=== PATIENT | male | born 1950 | race African-American/Black ===

== ENCOUNTER 2018-08-05 13:27 | Observation (INO) | payer MEDICARE ==
[2018-08-05] MEDS ORDERED: Ondansetron ODT 8 MG TAB PO PRN (13:39)
[2018-08-05] MEDS ORDERED: Ondansetron PF 4 MG/2 ML Vial IVP PRN (13:39)
[2018-08-05] MEDS ORDERED: Acetaminophen 325 MG TAB PO PRN (13:39)
[2018-08-05] MEDS ORDERED: Aspirin 325 MG TAB PO SCH (13:45)
[2018-08-05] MEDS ORDERED: Nitroglycerin 2% Ointment 1 INCH/1 GM Packet TOP SCH (13:45)
[2018-08-05 13:48] VITALS: BMI 25.9
--- NOTE | 2018-08-05 13:53 | PDOC.FPRHP ---
- History of Present Illness Chief Complaint: chest pain, SOB History of Present Illness: 68 yo M with HTN, HLD, CAD transfer for ACS r/o. Chest pain/pressure started 2 days ago, worse w/ exertion, better with rest and nitro paste. No nausea or diaphoriesis. Had this same pain 2 years ago in which he underwent NST with subsequent cardiac cath showing mild CAD of the LAD. Pt also endorses orthopnea but denies hx HF or lower extremity swelling. 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 Unable to remember what all he takes. - Allergies/Adverse Reactions Allergies Allergy/AdvReac Type Severity Reaction Status Date / Time No Known Allergies Allergy Verified 08/05/18 13:59 - Home Medications Medication Instructions Recorded Confirmed Type No Known 08/05/18 08/05/18 History - History PMHx: Hypertension, hyperlipidemia, PUD PSHx: Cardiac cath in 2017 FHx: Multiple family members with unknown heart problems Social: Smokes 1/2 ppd, drinks beer and uses cocaine every few weeks - Review of Systems General: denies: fever/chills, weight/appetite/sleep changes Eyes: denies: eye pain, vision changes ENT: denies: nasal congestion, rhinorrhea Respiratory: reports: shortness of breath. denies: cough, congestion Cardiovascular: reports: chest pain, orthopnea. denies: palpitation, edema Gastrointestinal: denies: nausea, vomiting, diarrhea, GI bleeding Genitourinary: denies: incontinence, dysuria Skin: denies: rashes, lesions Musculoskeletal: denies: pain, tenderness, stiffness, swelling Neurological: denies: numbness, syncope, weakness - Vital signs BP: [197/102] HR: [57] RR: [14] Tmax: [] Pox: [98]% on [RA] Wt: [81kg] - Physical Exam Constitutional: NAD, awake, alert and oriented, well developed HEENT: normocephalic and atraumatic, PERRLA, no scleral icterus Neck: supple, FROM, trachea midline Chest: no-tender to palpation Heart: RRR, normal S1/S2, no murmurs/rubs/gallops Lungs: CTAB, no respiratory distress, good air movement, no wheezing Abdomen: soft, non-tender, bowel sounds present Musculoskeletal: normal structure, normal tone Neurological: no focal deficit, CN II-XII intact Skin: no rash/lesions, good turgor, capillary refill <2 seconds Heme/Lymphatic: no unusual bruising or bleeding, no purpura Psychiatric: normal mood and affect, good judgment and insight FMR H&P: Results - Labs Result Diagrams: 08/05/18 16:49 - EKG Interpretation EKG: sinus bradycardia T wave inversions bifasicular block - Radiology Interpretation Chest x-ray Status: image reviewed by me, report reviewed by me Additional comment: no acute cardiopulmonary process FMR H&P: A/P - Problem List (1) ACS (acute coronary syndrome) Current Visit: Yes Status: Acute Code(s): I24.9 - ACUTE ISCHEMIC HEART DISEASE, UNSPECIFIED (2) CAD (coronary artery disease) Current Visit: Yes Status: Acute Code(s): I25.10 - ATHSCL HEART DISEASE OF [place] CORONARY ARTERY W/O ANG PCTRS (3) HLD (hyperlipidemia) Current Visit: Yes Status: Acute Code(s): E78.5 - HYPERLIPIDEMIA, UNSPECIFIED (4) Hypertension Current Visit: No Status: Acute Code(s): I10 - ESSENTIAL (PRIMARY) HYPERTENSION - Plan 68 yo M with CAD, HTN, HLD here for chest pain, ACS rule out Typical chest pain -Known CAD with cardiac cath in 2017 showing 20-30% stenosis of LAD -EKG with new T wave inversions in anterolateral lead V4-V5, no ST segment elevations -Pt asx currently, continue morphine and nitro patch for chest pain -continue ASA, statin, hold BB for stress -.02-> .016, continue to trend -A1c, FLP to risk stratify -Discussed with Dr. Cardenas, if troponins rise, consult -TTE to assess for heart failure -If not, plan for NST tomorrow to r/o ACS Hypokalemia -2.9, s/p 40mEq -recheck Mg & potassium -replace as needed Hyperbilirubinemia -1.5, will order direct THERESE vs. CKD -Creat 1.16, no good baseline -gentle fluids -rpt in AM HTN -pending med rec -hydralazine PRN HLD -will initiate statin Diet: HH/NPO @ midnight Dispo: <2 midnights Code: Full PCP: CC Will discuss w/ Dr. Barreto FMR H&P: Upper Level - Pertinent history 68 y/o M w/ PMHx of HTN and HLD presents as a direct admit from [facility] for further eval of intermittent left sided chest pain worse with exertion and associated w/ SOB. Reports improved w/ rest and nitro paste given in the ER. Denies any current chest pain. Hx of tobacco use. Per review of records had heart cath in 2016 showing minimal CAD. Pt reports sxs are similar to when he had his previous heart cath. Does not currently see a PCP and not currently taking any meds as he ran out and does not know which ones he is supposed to be on. - Pertinent findings Vitals per [facility] note Trop - 0.02 CK - 289 K+ - 2.6 Bili - 1.5 EKG - T-wave inversions noted CXR - NAD EKG - RBBB in anterior and inferior leads. New compared to Dec 2016 EKG per ER report. GEN: NAD, laying in bed CARD: RRR, no murmur PULM: CTA-b/l EXT: Trace LE edema R>L - Plan Date/Time: 08/05/18 1673 IJordan. Shane Linda MD, have evaluated this patient and agree with findings/plan as outlined by internal specialist resident. Pertinent changes/additions are listed here. 68 y/o M w/: 1) Typical Chest Pain (HEART 6) - Pt w/ new t-wave inversions noted as compared to 12/2016 admission - Initial troponin negative and not having active chest pain. Will put in for stress test for the AM - No recent ECHO, will obtain as well as he did have some decreased ventricular fxn per his cath 2 years ago - Cont. to janice Trop w/ CK-MB and repeat EKG's q 3 hrs. Will consult cardiology if pt's develops evidence of acute ischemia on EKG or trops become positive - Cont. w/ ASA. Will start on statin as he has a hx of HLD and is not currently taking - Will check FLP, A1c, and TSH for risk stratification 2) Other Chronic Medical Problems per [facility] note Addendum - Attending - Attending Attestation Date/Time: 08/05/18 9008 I personally evaluated the patient and discussed the management with Dr. Kim. I agree with the History, Examination, Assessment and Plan documented above with any addition or exceptions noted below. The patient was transferred from [facility] for chest pain and abnormal ekg. EKG with t-wave inversions and RBBB. Troponins are negative. Chest pain is now improved. Pt does not have a PCP and has not been taking antihypertensives for at least a month. He was positive for cocaine. Will add amlodipine for blood pressure control. Hydralazine prn. Trend cardiac enzymes. The team was able to speak with cardiology who recommended stress test.
[2018-08-05] MEDS ORDERED: hydrALAZINE 20 MG/ML VIAL SLOW IVP PRN (14:36)
[2018-08-05 14:44] LABS: Troponin I 0.016 ng/mL (< 0.028)
[2018-08-05] MEDS ORDERED: Lactated Ringer's 1,000 ML IV SCH ×2 (16:00→18:00)
[2018-08-05 17:06] LABS: Hemoglobin A1c 5.8 % (4.0-6.0)
[2018-08-05 17:13] LABS: Potassium 3.6 mmol/L (3.5-5.1)
[2018-08-05 17:21] LABS: Cardiac Risk 3.6 (Less than 4.5); Magnesium 1.9 mg/dL (1.6-2.6)
[2018-08-05 17:24] LABS: Troponin I 0.013 ng/mL (< 0.028)
[2018-08-05 17:25] LABS: CKMB 2.9 ng/mL (0-6.6)
[2018-08-05] MEDS: Atorvastatin Calcium 40 MG TAB PO SCH (20:39)
[2018-08-05 21:03] LABS: Troponin I Less than 0.010 ng/mL (< 0.028)
[2018-08-05] MEDS ORDERED: Amlodipine 5 MG TAB PO SCH (21:15)
--- NOTE | 2018-08-06 06:23 | PDOC.FM ---
- Subjective Subjective: Per nursing patient had 8 beats of v-tach overnight but was asymptomatic. Patient reports that he feels alright this AM. Endorses some right low back pain and mild persistent left-sided chest pain. Also reports that the bottoms of his feet feel hot with associated pain & swelling in his toes that is worse in his right foot. Denies any SOB, N/V, headache or vision changes. - Objective MAR Reviewed: Yes Vital Signs & Weight: Vital Signs (12 hours) Temp Pulse Resp BP BP BP Pulse Ox 08/06/18 03:28 97.8 F 69 13 156/94 H 94 L 08/05/18 23:58 97.8 F 69 16 123/78 95 08/05/18 22:42 75 167/99 H 08/05/18 19:54 97.2 F L 76 16 172/96 H 94 L Weight Weight 82.962 kg I&O: 08/04/18 08/05/18 08/06/18 06:59 06:59 06:59 Intake Total 360 Balance 360 Result Diagrams: 08/06/18 06:31 Phys Exam - Physical Examination Constitutional: NAD HEENT: moist MMs, sclera anicteric Neck: supple, full ROM Respiratory: no wheezing, no rales, no rhonchi, clear to auscultation bilateral Cardiovascular: RRR, no significant murmur Musculoskeletal: edema present (edema in toes of both feet with TTP in right great toe especially; warmth & mild erythema noted as well) Neurological: non-focal, moves all 4 limbs Psychiatric: normal affect, A&O x 3 Skin: no rash, normal turgor Dx/Plan (1) ACS (acute coronary syndrome) Code(s): I24.9 - ACUTE ISCHEMIC HEART DISEASE, UNSPECIFIED Status: Acute (2) CAD (coronary artery disease) Code(s): I25.10 - ATHSCL HEART DISEASE OF [place] CORONARY ARTERY W/O ANG PCTRS Status: Acute (3) HLD (hyperlipidemia) Code(s): E78.5 - HYPERLIPIDEMIA, UNSPECIFIED Status: Acute (4) Elevated troponin Code(s): R79.89 - OTHER SPECIFIED ABNORMAL FINDINGS OF BLOOD CHEMISTRY Status : Acute (5) Hypertension Code(s): I10 - ESSENTIAL (PRIMARY) HYPERTENSION Status: Acute (6) Polysubstance abuse Code(s): F19.10 - OTHER PSYCHOACTIVE SUBSTANCE ABUSE, UNCOMPLICATED Status: Acute - Plan Plan: 68 yo M with CAD, HTN, & HLD here for typical chest pain. Typical chest pain -Known CAD with cardiac cath in 2017 showing 20-30% stenosis of LAD -EKG with new T wave inversions in anterolateral lead V4-V5 but no ST segment elevations on admission -Pt remains asx but will continue tylenol PRN for pain -trops from .02--> .016--> <0.010 -A1c significant for pre-DM and FLP showed LDL of 111. -Will continue ASA & statin & add an antihypertensive but will avoid BBs for stress this AM -TTE to assess for heart failure -NST today to r/o ACS nonsustained V-tach - Per nursing patient had ~8 beats of non-sustained V-tach overnight but had similar runs during last hospitalization & EP decided no interventions were necessary. Will continue to monitor closely on telemetry & proceed with stress testing as planned. Pre-DM - Aware, will have patient follow-up as an outpatient for close monitoring and resume HH, diabetic diet after stress test Toe pain & swelling - Patient denies any prior h/o gout but will check a uric acid level to rule out a possible gout flare. Hypokalemia, resolved -2.9 at outside facility but up to 3.6 s/p 40mEq. -Will continue to monitor & replace as needed. Hyperbilirubinemia -Tbili 1.5 on admission with a slightly elevated direct of 0.5 THERESE vs. CKD - Creat 1.16 on admission with no good baseline for comparison - Repeat pending for this AM HTN -Will start amlodipine & add other agents PRN as patient cannot remember what meds he is supposed to be on -hydralazine PRN for SBP >180 HLD -will continue statin Diet: NPO for stress this AM Dispo: <2 midnights Code: Full PCP: CC Discussed case w/ Dr. Barreto. Addendum - Attending - Attending Attestation Date/Time: 08/06/18 4130 I personally evaluated the patient and discussed the management with Dr. Barahona. I agree with the History, Examination, Assessment and Plan documented above with any addition or exceptions noted below. The patient states his chest pain is better and his headache is improved. Added amlodipine for bp control. Stress test today. He had several beats of vtach overnight and looking at hospitalization about a year ago, this occured then as well. Will monitor.
[2018-08-06 07:02] LABS: Anion Gap 9 mmol/L (10-20); BUN (Urea Nitrogen) 15 mg/dL (8.4-25.7); Calc. Creatinine Clearance 71 mL/min (70-130); Calcium 9.1 mg/dL (7.8-10.44); Carbon Dioxide 28 mmol/L (23-31); Chloride 102 mmol/L (98-107); Estimated GFR-MDRD 78; Glucose 119 mg/dL (80-115); Potassium 3.4 mmol/L (3.5-5.1); Sodium 136 mmol/L (136-145)
[2018-08-06] MEDS ORDERED: Acetaminophen 500 MG TAB PO PRN (07:54)
[2018-08-06] MEDS ORDERED: Potassium Chloride 20 MEQ TAB PO SCH (08:00)
[2018-08-06 08:16] LABS: Magnesium 1.9 mg/dL (1.6-2.6)
[2018-08-06] MEDS: Amlodipine 5 MG TAB PO SCH (08:18)
[2018-08-06] MEDS: Aspirin 81 mg Enteric Coated Tablet PO SCH (08:18)
[2018-08-06] MEDS ORDERED: Hydrochlorothiazide 25 MG TAB PO SCH (09:45)
[2018-08-06] MEDS: Nitroglycerin 0.4 MG TAB (25 Tab Bottle) ONE ×3 (11:15→11:27)
[2018-08-06] MEDS ORDERED: Nitroglycerin 0.4 MG TAB (25 Tab Bottle) SL PRN (11:49)
[2018-08-06] MEDS: Lisinopril 20 MG TAB PO SCH (19:56)
[2018-08-06] MEDS: Atorvastatin Calcium 40 MG TAB PO SCH (19:56)
[2018-08-06] MEDS: Hydrochlorothiazide 25 MG TAB PO SCH (19:56)
--- NOTE | 2018-08-07 00:45 | CON ---
DATE OF CONSULTATION: PRIMARY CARE DOCTOR: Dr. Barth at [facility]. PRIMARY ARMATURE WINDER AUTOMOTIVE: Michele Carrasco MD REFERRING PHYSICIAN: [employer] resident. REASON FOR CARDIOLOGY CONSULT: Chest pain and change in EF. HISTORY OF PRESENT ILLNESS: Mr. La is a 68-year-old male with a significant history of hypertension, noncompliance of medical treatment, smoker and occasional cocaine abuser. The patient was doing quite well; however about 2-3 weeks ago, he started having intermittent sharp and tightness like chest pain to the left upper chest, which is localized and not radiate to anywhere else, which lasted 2 or 3 hours and he also started having choking like shortness of breath and he needed to take a deep breath, but not associated with chest pain. Due to this episode, the patient decided to present to the emergency department for further evaluation and treatment. He was supposed to have a stress test this morning; however, which was, however, which was postponed this morning due to worsening of the EF and also recurrent chest pain and 8 beats of V-tach, which the patient was asymptomatic. This morning, he had sharp pain to the left upper chest for 2-3 hours at the left upper chest, the symptom became worse with palpitation and with movement. He also complained of shortness of breath and tingling in the left arm. He also complained of pain to the left leg with swelling and burning like pain to the right foot with movement, but also he had shooting like pain to the side, even though he is resting. He had been active helping his neighbor for the yard work. Every day he walks a total of 2-3 miles a day. He sometimes has shortness of breath and then he has to stop for few minutes, but he denied any chest pain, heaviness, tightness, dizziness, lightheadedness, nausea, or tingling to the left arm during the exercise. He continues smoking 3-4 cigarettes a day. He has a history of occasional cocaine abuse, last use was 2 weeks ago. He is a non-complaint patient. He does want to see the doctor unless he has some symptoms. He has been at the ER at [facility] for high blood pressure couple of months ago. However, he has not taken any blood pressure medicine or any medicine for more than 1 month. The patient has underwent cardiac catheterization in May 2016, which shows normal coronary arteries in left main, left circumflex, and right coronary arteries. He has a 20% of stenosis in the proximal LAD and 30% stenosis in mid LAD with EF 45% to 50% and mild global hypokinesis. The patient had an echocardiogram done today, which shows EF of inferior hypokinesis suggestive of diastolic dysfunction, moderately dilated left atrium, mildly enlarged right atrium, mild mitral valve regurgitation, mild aortic valve regurgitation, and mild tricuspid regurgitation. PAST MEDICAL HISTORY: Hypertension, ulcer disease with a history of GI bleed and cocaine abuse. PAST SURGICAL HISTORY: Cardiac catheterization in May 2016 with mild CAD, clipping of ulcer in 1997 and left arm fracture in 2015. FAMILY HISTORY: The patient's mother and patient's maternal grandmother had a history of OK before the age of 60. The patient's father has also myocardial infarction at the age of 60. The patient's one of the brother has a history of CVA. He had to stay in the senior care at this moment. SOCIAL HISTORY: He is living with the . He has 4 daughters who are living well. He smokes 3-4 cigarettes per day. He has an ex EtOH abuse, he quit 15 years ago. He used cocaine occasionally, but he does not use any heroin or meth. He has been active. He drinks 1 cup of coffee a day. ALLERGIES: NO KNOWN DRUG ALLERGIES. MEDICATIONS: He is supposed to take medication for hypertension, but he has not taken any for more than 1 month. REVIEW OF SYSTEMS: A 12-point review of systems negative unless otherwise mentioned in the HPI. PHYSICAL EXAMINATION: VITAL SIGNS: Blood pressure 172/90, temperature 98.1, pulse is 63, sinus rhythm, respiratory rate 18, O2 saturation 100% with 2 L nasal cannula. GENERAL: Patient is alert and oriented x4. No acute distress. HEENT: Normocephalic, atraumatic. EYES: Extraocular muscle movement intact. He wears glasses. ENT: Mouth, oral, and nasal mucosa are moist without lesion. NECK: Supple. Normal range of motion. No JVD. RESPIRATORY: Clear to auscultate bilaterally. No wheezing, rales, or rhonchi noted, but diminished at the bases. CARDIOVASCULAR: Regular rate and rhythm. Normal S1, S2. There is no S3 or S4. No significant murmur, hives, thrill noted. EXTREMITIES: 2+ pulses in the bilateral upper extremities and 2+ pulses in the left dorsal pedis and the right femoral arteries, diminished pulses in the right dorsal pedis, bilateral posterior tibial, bilateral popliteal and left femoral. Carotid pulses are present without bruit or thrill. No edema in the lower extremities. ABDOMEN: Soft, nontender. No mass to palpitate. Bowel sounds are present. SKIN: Warm and dry. No lesion, rash, or erythema noted. MUSCULOSKELETAL: The patient able to move all extremities without any difficulty. Patient complaints about the pain to the right lower extremities with walking. NEUROLOGIC: The patient is alert and oriented x4. Nonfocal. PSYCHIATRIC: The patient's mood is appropriate. IMAGIN. A 12 lead EKG on August 06 around 11 shows sinus rhythm with right bundle branch block with no ST-segment change and the T-wave inversion in V1 and V3. 2. Chest x-ray shows no evidence for acute cardiopulmonary process. LABORATORY DATA: WBC 5.3, hemoglobin 15.1, hematocrit 47.3, platelet 157, sodium 136, potassium 3.4, which was 2.6 yesterday, BUN 15, creatinine 1.13, glucose 119. Hemoglobin A1c 5.8, uric acid 8, calcium 9.1, magnesium 1.9, AST 23, ALT 15. Troponin is negative. BNP 59.2, cholesterol 167, triglycerides 45, HDL 47, LDL 111. TSH 0.1552. Free T4 is 1.09. ASSESSMENT/PLAN: 1. Chest pain, his symptoms what he describes is possible musculoskeletal etiologies, also patient's cardiac catheterization in May 2016 shows a mild coronary artery disease. However, patient has blood pressure, history of hypertension, tobacco smoking, and non-complaince with medication, medical treatment and occasional cocaine abuse. At this moment, we would like to continue to monitor the patient's symptom, I would like to discuss with Dr. Cardenas for further treatment and plan for this patient. 2. Hypertension. His blood pressure continues to be elevated. He is on amlodipine 5 mg once daily and hydrochlorothiazide 12.5 mg twice daily, it is going to be p.o. at night; lisinopril 20 mg twice a day is going to be started from tonight. We would like to continue to monitor his blood pressure. 3. Status post 8 beats of ventricular tachycardia. He had similar symptom in May 2016 before the patient underwent cardiac catheterization. Dr. Leal consulted this patient for the diagnosis. Dr. Leal recommended the patient to be on the beta derrick at that time. At this moment, the patient is on aspirin 81 mg once a day; however beta derrick is on hold at this moment due to bradycardia. We will have to continue to monitor on the telemetry. 4. Elevated uric acid. The patient's complaint of the pain to right lower extremities, especially around his foot side with swelling. It may be beneficial for him to start taking allopurinol or some gout medication. 5. Hyperlipidemia. He is on atorvastatin 40 mg once daily at this moment. We would like to continue to monitor. Thank you very much for allowing the Cardiology Service to participate in the care of this patient. We will follow along the patient's care team and make further recommendations as appropriate from tomorrow, Dr. Carrasco is going to follow up with this patient. Job ID: [id number]
--- NOTE | 2018-08-07 00:57 | CON ---
DATE OF CONSULTATION: 08/06/2018 INDICATION FOR CONSULTATION: A 68-year-old patient with a history of [id number] coronary artery disease, who presented with chest pain. He has been seen in the past, underwent cardiac catheterization previously by Dr. Carrasco in May of 2016, at which time, the left anterior descending artery was mildly calcified with 20% proximal lesion, 30% mid lesion. The circumflex was normal. The right coronary was normal and the left main was also normal, ejection fraction was 45% to 50%. He presented again to the hospital complaining of chest pain. He was scheduled to undergo stress testing, but then the nurse deforming the patient had chest pain and diaphoresis. It was opted to discontinue the order for the stress test and most likely will need to proceed with cardiac catheterization again since he had what he described originally as typical chest pain, however, on further evaluation of the patient, he describes it more as being a sharp pain. His cardiac enzymes have remained negative. His EKG shows a right bundle-branch block. He did have some T-wave inversions which have now become upright. He did have some possible ischemic changes on his EKG. He has had some discomfort on and off for the last 2 years since his last cardiac catheterization. This is somewhat atypical, but given his history and continued use of tobacco as well as hypertension and also occasional cocaine use, it maybe best to repeat the cardiac catheterization; I will leave it to the discretion of Dr. Carrasco when he sees the patient tomorrow. He may still undergo a stress test, but certainly the patient does appear to be somewhat at risk for having progression of his coronary artery disease despite having not any significant coronary artery disease by cardiac catheterization just approximately 2 years ago. He also had a 4-beat run of nonsustained ventricular tachycardia making it somewhat more suspicious he may have underlying coronary artery disease that has progressed. PAST MEDICAL HISTORY: Please refer the notes dictated by the nurse practitioner. SOCIAL HISTORY: Please refer the notes dictated by the nurse practitioner. FAMILY HISTORY: Please refer the notes dictated by the nurse practitioner. REVIEW OF SYSTEMS: Please refer the notes dictated by the nurse practitioner. MEDICATIONS: Please refer the notes dictated by the nurse practitioner. ALLERGIES: PLEASE REFER THE NOTES DICTATED BY THE NURSE PRACTITIONER. PHYSICAL EXAMINATION: GENERAL: Reveals a well-developed, well-nourished gentleman, who is in no acute distress at this time. He is alert. He is oriented. VITAL SIGNS: Stable. Blood pressure is somewhat elevated at 162/98. He is afebrile. Heart rate 63, respiratory rate is 18. HEENT: Shows head to be normocephalic and atraumatic. Carotid pulses present. There were no bruits. CHEST: Actually clear to auscultation. I did not hear any rales, rhonchi, or wheezing. CARDIOVASCULAR: Reveals a regular rate and rhythm. There is no significant S3 or S4 noted. There were no significant murmurs, heaves, thrills, bruits noted. ABDOMEN: Soft and nontender. Positive bowel sounds are present. EXTREMITIES: Show no clubbing, cyanosis, or edema. Right pedal pulses are slightly decreased compared to the left. Also, the right femoral artery pulse is slightly decreased compared to the left. He has complained of hip pain in the past, but does not appear to be significant peripheral vascular disease at this time. NEUROLOGICAL: He appears to be intact. SKIN: Warm and dry. LABORATORY DATA: Please refer to the notes already dictated. His troponin I has remained negative. Potassium is 3.4, creatinine is 1.13, blood sugar is 119. His hemoglobin is 15.1 with a WBC of 5.3, and platelet count is also normal at 157,000. IMPRESSION: 1. Somewhat atypical chest pain in a patient with continued risk factors for coronary artery disease with chest pain with associated diaphoresis and EKG changes with a right bundle-branch block and T-wave inversions. We will continue to monitor the patient tonight and we will decide whether or not the patient will undergo stress testing versus cardiac catheterization tomorrow. 2. History of continued tobacco abuse. He has been advised to stop smoking. 3. History of hypertension. We will need to readjust his medications. I am not sure he has been taking his medications at home. At this time, he has been placed on hydrochlorothiazide, lisinopril. He is on nitroglycerin, hydralazine as needed, and amlodipine. He may need to be placed on long-acting nitroglycerin. He is not on a beta derrick, however, he does continue to use cocaine at times. However, there are recent studies which showed that there may not be any significant contraindications to using beta blockers after using cocaine for fear of vasospasm, so he may be a candidate for beta blockers. I believe this up to the discretion of Dr. Carrasco when he reviews these findings and with the patient tomorrow. Job ID: [id number]
--- NOTE | 2018-08-07 05:40 | PDOC.FM ---
- Subjective Subjective: Pt states he did well overnight. He denies chest pain, sob, dizziness, or nausea /vomiting. - Objective MAR Reviewed: Yes Vital Signs & Weight: Vital Signs (12 hours) Temp Pulse Resp BP BP Pulse Ox 08/07/18 04:35 98.0 F 58 L 16 164/88 H 95 08/06/18 23:35 68 18 158/94 H 94 L 08/06/18 19:56 162/98 H 08/06/18 19:25 98.3 F 64 18 162/98 H 99 Weight Weight 82.962 kg I&O: 08/05/18 08/06/18 08/07/18 06:59 06:59 06:59 Intake Total 720 240 Output Total 550 Balance 170 240 Result Diagrams: 08/07/18 06:23 Phys Exam - Physical Examination Constitutional: NAD HEENT: moist MMs Neck: no JVD, full ROM Respiratory: no wheezing, clear to auscultation bilateral Cardiovascular: RRR, no significant murmur Gastrointestinal: soft, non-tender, no distention, positive bowel sounds Musculoskeletal: no edema, pulses present Neurological: moves all 4 limbs Psychiatric: A&O x 3 Skin: cap refill <2 seconds Dx/Plan (1) ACS (acute coronary syndrome) Code(s): I24.9 - ACUTE ISCHEMIC HEART DISEASE, UNSPECIFIED Status: Acute (2) CAD (coronary artery disease) Code(s): I25.10 - ATHSCL HEART DISEASE OF [place] CORONARY ARTERY W/O ANG PCTRS Status: Acute (3) HLD (hyperlipidemia) Code(s): E78.5 - HYPERLIPIDEMIA, UNSPECIFIED Status: Acute (4) Elevated troponin Code(s): R79.89 - OTHER SPECIFIED ABNORMAL FINDINGS OF BLOOD CHEMISTRY Status : Acute (5) Hypertension Code(s): I10 - ESSENTIAL (PRIMARY) HYPERTENSION Status: Acute (6) Polysubstance abuse Code(s): F19.10 - OTHER PSYCHOACTIVE SUBSTANCE ABUSE, UNCOMPLICATED Status: Acute - Plan Plan: This is a 68 male with a pmh of CAD, HTN, HLD Typical chest pain -Cardiology consulted, plan for heart cath or stress test today -Nitro PRN for pain control -Pre-DM and mildly elevated LDL of 111 -TTE yesterday shows EF 55-60 with findings suggestive of diastolic HF Nonsustained V-tach during this hospitalization -Continue monitoring, no intervention at this time Pre-DM -A1c 5.8, likely will not be significant in a 68 yo Cocaine abuse -Avoid beta blockers at this time, defer to cardiology on outpt BB. Hypokalemia -IV and PO replacement, BMP at 1600 Hyberbiliruninemia THERESE vs. CKD -Will monitor how kidneys respond for final diagnosis HTN -Pt on amlodipine, HCTZ, and lisinopril -PRN hydralazine for SBP >180 HLD -Continue statin Addendum - Attending - Attending Attestation Date/Time: 08/07/18 3655 I personally evaluated the patient and discussed the management with Dr. Stuart. I agree with the History, Examination, Assessment and Plan documented above with any addition or exceptions noted below. Patient here for typical chest pain in the setting of known CAD and drug abuse. He is going for heart cath with his deck specialist this morning. Further mgmt per those results and cardiology recs.
[2018-08-07 07:03] LABS: Anion Gap 13 mmol/L (10-20); BUN (Urea Nitrogen) 14 mg/dL (8.4-25.7); Calc. Creatinine Clearance 78 mL/min (70-130); Carbon Dioxide 27 mmol/L (23-31); Chloride 102 mmol/L (98-107); Estimated GFR-MDRD 87; Glucose 98 mg/dL (80-115); Sodium 139 mmol/L (136-145)
[2018-08-07] MEDS ORDERED: Iopamidol 370 76% 100 ML VIAL ONE (09:29)
[2018-08-07] MEDS ORDERED: Iopamidol 370 76% 50 ML VIAL FS ONE (09:29)
[2018-08-07] MEDS ORDERED: Heparin 10,000 UNITS/1 ML VIAL ONE (09:44)
[2018-08-07] MEDS ORDERED: Potassium Chloride 20 MEQ/100 ML PREMIX BAG IVPB SCH (10:00)
[2018-08-07] MEDS ORDERED: Sodium Chloride 0.9% 1,000 ML IV SCH ×2 (10:00→11:35)
[2018-08-07] MEDS ORDERED: Midazolam HCl 2 mg/2 ml Vial ONE (10:40)
[2018-08-07] MEDS ORDERED: Fentanyl 100 MCG/2 ML VIAL ONE (10:40)
[2018-08-07] MEDS ORDERED: Nitroglycerin 4.9 GM Bottle ONE (11:07)
[2018-08-07] MEDS ORDERED: Protamine Sulfate 50 MG/5 ML VIAL ONE (11:07)
[2018-08-07] MEDS ORDERED: Carvedilol 3.125 MG TAB PO SCH (11:30)
[2018-08-07] MEDS ORDERED: Acetaminophen/Codeine 30-300mg Tablet PO PRN ×2 (11:34)
[2018-08-07] MEDS ORDERED: Sodium Chloride 0.9% 200 ML IV PRN (11:34)
[2018-08-07] MEDS ORDERED: Nitroglycerin 0.4 MG TAB (25 Tab Bottle) SL PRN (11:34)
[2018-08-07 12:17] LABS: Amphetamine Not Detected (NotDetected); Barbiturates Screen Not Detected (NotDetected); Benzodiazepine Screen Not Detected (NotDetected); Cocaine Metabolite Screen Detected (NotDetected); Medtox Control Line Valid? VALID (VALID); Medtox Reader # READER 1; Methadone Not Detected (NotDetected); Methamphetamine Not Detected (NotDetected); Opiate Screen Not Detected (NotDetected); Oxycodone Screen Not Detected (NotDetected); Phencyclidine (PCP) Not Detected (NotDetected); THC/Cannabinoid Screen Not Detected (NotDetected); Tricyclic Screen Not Detected (NotDetected)
[2018-08-07] MEDS: Lisinopril 20 MG TAB PO SCH ×2 (12:19→20:48)
[2018-08-07] MEDS: Amlodipine 5 MG TAB PO SCH (12:19)
[2018-08-07] MEDS: Aspirin 81 mg Enteric Coated Tablet PO SCH (12:20)
[2018-08-07] MEDS ORDERED: Hydrochlorothiazide 25 MG TAB PO SCH (13:45)
[2018-08-07] MEDS: Potassium Chloride 20 MEQ in Premix Bag 1 BAG IVPB SCH ×2 (13:56→20:50)
[2018-08-07] MEDS: Hydrochlorothiazide 25 MG TAB PO SCH (14:19)
[2018-08-07 16:56] LABS: Anion Gap 12 mmol/L (10-20); BUN (Urea Nitrogen) 13 mg/dL (8.4-25.7); Calc. Creatinine Clearance 78 mL/min (70-130); Carbon Dioxide 25 mmol/L (23-31); Chloride 101 mmol/L (98-107); Estimated GFR-MDRD 89; Glucose 105 mg/dL (80-115); Potassium 3.3 mmol/L (3.5-5.1); Sodium 135 mmol/L (136-145)
[2018-08-07] MEDS: Potassium Chloride 20 MEQ TAB PO SCH (16:59)
[2018-08-07] MEDS: Carvedilol 3.125 MG TAB PO SCH (16:59)
[2018-08-07] MEDS: Atorvastatin Calcium 40 MG TAB PO SCH (20:46)
[2018-08-08] MEDS: Potassium Chloride 20 MEQ in Premix Bag 1 BAG IVPB SCH (01:27)
--- NOTE | 2018-08-08 05:58 | PDOC.FM ---
- Subjective Subjective: No chest pain overnight. He denies nausea, vomiting, or SOB. Pt reports he wants to go home. - Objective MAR Reviewed: Yes Vital Signs & Weight: Vital Signs (12 hours) Temp Pulse Resp BP BP Pulse Ox 08/08/18 04:00 98.6 F 61 16 137/82 92 L 08/07/18 23:41 98.0 F 57 L 16 126/82 93 L 08/07/18 20:48 159/93 H 08/07/18 19:14 98.6 F 56 L 16 142/87 H 95 Weight Weight 80.876 kg I&O: 08/06/18 08/07/18 08/08/18 06:59 06:59 06:59 Intake Total 720 240 720 Output Total 550 Balance 170 240 720 Result Diagrams: 08/07/18 16:27 Phys Exam - Physical Examination Constitutional: NAD HEENT: moist MMs Neck: no JVD, full ROM Respiratory: no wheezing, clear to auscultation bilateral Cardiovascular: RRR, no significant murmur Gastrointestinal: soft, non-tender, no distention, positive bowel sounds Musculoskeletal: no edema, pulses present Neurological: moves all 4 limbs Psychiatric: A&O x 3 Skin: cap refill <2 seconds Dx/Plan (1) ACS (acute coronary syndrome) Code(s): I24.9 - ACUTE ISCHEMIC HEART DISEASE, UNSPECIFIED Status: Acute (2) CAD (coronary artery disease) Code(s): I25.10 - ATHSCL HEART DISEASE OF [place] CORONARY ARTERY W/O ANG PCTRS Status: Acute (3) HLD (hyperlipidemia) Code(s): E78.5 - HYPERLIPIDEMIA, UNSPECIFIED Status: Acute (4) Elevated troponin Code(s): R79.89 - OTHER SPECIFIED ABNORMAL FINDINGS OF BLOOD CHEMISTRY Status : Acute (5) Hypertension Code(s): I10 - ESSENTIAL (PRIMARY) HYPERTENSION Status: Acute (6) Polysubstance abuse Code(s): F19.10 - OTHER PSYCHOACTIVE SUBSTANCE ABUSE, UNCOMPLICATED Status: Acute - Plan Plan: This is a 68 male with a pmh of CAD, HTN, HLD Typical chest pain, likely due to ischemia -Cardiology consulted -Nitro PRN for pain control -Pre-DM and mildly elevated LDL of 111 -Heart cath shows LAD 50% occluded -Medical management going forward, no further invasive interventions -TTE yesterday shows EF 55-60 with findings suggestive of diastolic HF -Likely home today with PCP and cards outpt follow up Nonsustained V-tach during this hospitalization -Continue monitoring, no intervention at this time Pre-DM -A1c 5.8, likely will not be significant in a 68 yo Cocaine abuse -Avoid beta blockers at this time, defer to cardiology on outpt BB. Hypokalemia -IV and PO replacement, BMP at 1600 Hyberbiliruninemia THERESE vs. CKD -Will monitor how kidneys respond for final diagnosis HTN -Pt on amlodipine, HCTZ, and lisinopril -PRN hydralazine for SBP >180 HLD -Continue statin
[2018-08-08] MEDS: Amlodipine 5 MG TAB PO SCH (08:15)
[2018-08-08] MEDS: Lisinopril 20 MG TAB PO SCH (08:15)
[2018-08-08] MEDS: Potassium Chloride 20 MEQ TAB PO SCH ×2 (08:16→16:22)
[2018-08-08] MEDS: Aspirin 81 mg Enteric Coated Tablet PO SCH (08:16)
[2018-08-08] MEDS: Carvedilol 3.125 MG TAB PO SCH ×2 (08:16→16:21)
[2018-08-08] MEDS ORDERED: Furosemide 20 MG TAB PO SCH (09:00)
[2018-08-08 09:32] LABS: Anion Gap 12 mmol/L (10-20); BUN (Urea Nitrogen) 12 mg/dL (8.4-25.7); Calc. Creatinine Clearance 75 mL/min (70-130); Calcium 8.9 mg/dL (7.8-10.44); Carbon Dioxide 26 mmol/L (23-31); Chloride 100 mmol/L (98-107); Estimated GFR-MDRD 85; Glucose 94 mg/dL (80-115); Potassium 3.1 mmol/L (3.5-5.1); Sodium 135 mmol/L (136-145)
[2018-08-08 11:21] VITALS: BP 138/83; TEMP 97.9
--- NOTE | 2018-08-08 13:15 | PRG ---
DATE OF SERVICE: 08/08/2018 Mr. La is a 68-year-old man, who was admitted with chest pain. He was seen in consultation by the Cardiology Service and subsequently taken for cardiac catheterization. He was found to have one-vessel coronary artery disease with a 50% stenosis of his distal LAD. He had previously had a heart catheterization over a year ago, which showed a 30% stenosis in this area. Medical therapy has been recommended. We have started him on aspirin, statin, and other medications as per recommendations of Cardiology. His troponins remained less than 0.01. He will be discharged today. Job ID: [id number]
--- NOTE | 2018-08-09 14:15 | DIS ---
DATE OF ADMISSION: 08/05/2018 DATE OF DISCHARGE: 08/08/2018 ADMITTING ATTENDING: Alta Barreto MD. DISCHARGE ATTENDING: Josué Jackson MD RESIDENT: Gavino Stuart DO CONSULTS: Michele Carrasco MD, Cardiology. PROCEDURES: 1. Echocardiogram showing EF of 50 to 55, with lateral inferior hypokinesis, EA flow reversal noted suggestive of diastolic dysfunction, otherwise grossly normal. 2. Heart catheterization showing lesion in the proximal LAD, which represents stenosis for 8 mm, lesion of the mid LAD with 30% stenosis for 4 mm, distal lesion on the LAD 50% stenosis for 3 mm. Lesion on the mid right RCA 20% stenosis for 5 mm. PRIMARY DIAGNOSES: Atypical angina. Hypokalemia, resolved at the time of discharge. Mild hypobilirubinemia. Acute kidney injury on chronic kidney disease, improving at the time of discharge. SECONDARY DIAGNOSES: Hypertension, hyperlipidemia, cocaine abuse. DISCHARGE MEDICATIONS: 1. Amlodipine 5 mg p.o. daily. 2. Atorvastatin 40 mg p.o. at bedtime. 3. Carvedilol 3.125 mg p.o. b.i.d. 4. Furosemide 20 mg p.o. daily. 5. Gabapentin 300 mg p.o. t.i.d. 6. Lisinopril 20 mg p.o. b.i.d. 7. Potassium 20 mEq p.o. b.i.d. with meals. BRIEF HISTORY OF PRESENT ILLNESS/HOSPITAL COURSE: A 68-year-old male with past medical history of as above, presented with chest pain started 2 days ago, worsening with exertion, better with rest and nitroglycerin paste. Denied nausea or diaphoresis. Reports the same pain 2 years ago when he underwent a catheterization showing mild CAD to LAD. The patient was admitted to the hospital and underwent echo and heart catheterization as noted above. It was determined to be treated medically rather than interventionally. The patient was advised to discontinue cocaine abuse as this can worsen his chest pain. At the time of discharge, the patient's vital signs were stable. DISPOSITION: Stable. DISCHARGE INSTRUCTIONS: 1. Location: Home. 2. Diet: Heart healthy. 3. Activities: As tolerated. 4. Follow up with PCP and with Cardiology as instructed. The patient was a [employer]. Job ID: [id number]
== END 2018-08-08 16:25 | disposition home or self-care (01) ==
LOC: 2SW 13:27
PROVIDERS: ADMIT Family Medicine; ATTEND Family Medicine
PROC: 4A023N7 Measurement of Cardiac Sampling and Pressure, Left Heart, Percutaneous Approach (ICD-10-PCS; principal; 2018-08-05)
PROC: B2111ZZ Fluoroscopy of Multiple Coronary Arteries using Low Osmolar Contrast (ICD-10-PCS; 2018-08-05)
DX: I25.119 Atherosclerotic heart disease of native coronary artery with unspecified angina pectoris (principal); I12.9 Hypertensive chronic kidney disease with stage 1 through stage 4 chronic kidney disease, or unspecified chronic kidney disease; E11.22 Type 2 diabetes mellitus with diabetic chronic kidney disease; N18.9 Chronic kidney disease, unspecified; N17.9 Acute kidney failure, unspecified; E78.5 Hyperlipidemia, unspecified; E80.6 Other disorders of bilirubin metabolism; E87.6 Hypokalemia; F17.210 Nicotine dependence, cigarettes, uncomplicated; Z79.899 Other long term (current) drug therapy; Z91.14 Patient's other noncompliance with medication regimen
CPT/HCPCS: 80048 ×4; 80061; 80306; 82248; 82553; 82962; 83036; 83735 ×2; 83880; 84132; 84439; 84443; 84484 ×3; 84550; 85347; 93005 ×2; 93306; 93458; 94760 ×3; 96365; 96366; 96375; C1769; G0378 ×2; 36415; 36416; 93010; 99152; 99153; J0360; J1644; J2250; J2720; J3010; J3480; Q9967

== ENCOUNTER 2019-12-01 20:52 | Inpatient (IN) | payer MEDICARE, OTHER ==
[2019-12-01 21:21] LABS: #Eosinphils 0.2 thou/uL (0.0-0.7); #Lymphocytes 2.4 thou/uL (1.20-3.40); #Monocytes 0.5 thou/uL (0.11-0.59); #Neutrophils 3.8 thou/uL (1.40-6.50); %Basophils 0.3 % (0.0-1.0); %Eosinophils 2.5 % (0.0-10.0); %Lymphocytes 34.8 % (21.0-51.0); %Monocytes 7.6 % (0.0-10.0); %Neutrophils 54.7 % (42.0-75.0); Hemoglobin 14.4 g/dL (14.0-18.0); Mean Corpuscular Hemoglobin 29.2 pg (27.0-31.0); Platelet Count 171 thou/uL (130-400); RBC Distribution Width 13.2 % (11.5-14.5); Red Blood Cell (RBC) Count 4.93 mill/uL (4.70-6.10); White Blood Cell (WBC) Count 6.9 thou/uL (4.8-10.8)
--- NOTE | 2019-12-01 21:22 | RAD ---
PORTABLE CHEST: 12/01/19 PROVIDED CLINICAL HISTORY: Chest pain. FINDINGS: Comparison 04/27/19. Cardiac silhouette appears enlarged, which may be at least partially on the basis of portable techniq ue. Vascular calcifications noted. No focal consolidation, pleural fluid or pneumothorax apparent. IMPRESSION: No evidence for an acute cardiopulmonary process. POS: ANNEMARIE
[2019-12-01 21:47] LABS: ALT (SGPT) 13 U/L (8-55); AST (SGOT) 19 U/L (5-34); Albumin 3.9 g/dL (3.4-4.8); Alkaline Phosphatase 64 U/L (40-110); Anion Gap 15 mmol/L (10-20); BUN (Urea Nitrogen) 10 mg/dL (8.4-25.7); Bilirubin, Total 0.6 mg/dL (0.2-1.2); Calc. Creatinine Clearance 0 mL/min (70-130); Calcium 8.8 mg/dL (7.8-10.44); Carbon Dioxide 25 mmol/L (23-31); Chloride 104 mmol/L (98-107); Estimated GFR-MDRD 80; Globulin 3.1 g/dL (2.4-3.5); Glucose 96 mg/dL (83-110); Potassium 3.1 mmol/L (3.5-5.1); Sodium 141 mmol/L (136-145)
[2019-12-01] MEDS ORDERED: Amiodarone 450 MG, Admixture Fee 1 EACH in Dextrose 5% in Water 250 ML IVPB SCH (23:15)
[2019-12-02 00:59] LABS: Troponin I 0.033 ng/mL (< 0.028)
[2019-12-02 03:48] VITALS: BMI 24.5
[2019-12-02] MEDS ORDERED: Potassium Chloride 20 MEQ TAB PO SCH ×2 (04:15→08:45)
[2019-12-02] MEDS ORDERED: Acetaminophen 500 MG TAB PO PRN (08:27)
[2019-12-02] MEDS ORDERED: Carvedilol 3.125 MG TAB PO SCH ×2 (08:30→17:00)
[2019-12-02] MEDS: Aspirin 81 mg Enteric Coated Tablet PO SCH (09:10)
[2019-12-02] MEDS: Enoxaparin Sodium 40 MG/0.4 ML SYRINGE SC SCH (09:10)
[2019-12-02] MEDS: Lisinopril 20 MG TAB PO SCH ×2 (09:11→20:21)
[2019-12-02] MEDS: Amlodipine 5 MG TAB PO SCH (09:11)
[2019-12-02] MEDS: Furosemide 20 MG TAB PO SCH (09:11)
[2019-12-02] MEDS: Gabapentin 300 MG CAP PO SCH ×3 (09:11→20:21)
[2019-12-02 09:41] LABS: Hemoglobin A1c 5.8 % (4.0-6.0); Prothrombin Time 13.4 sec (12.0-14.7)
[2019-12-02 09:54] LABS: Anion Gap 13 mmol/L (10-20); BUN (Urea Nitrogen) 11 mg/dL (8.4-25.7); Calc. Creatinine Clearance 69 mL/min (70-130); Calcium 8.8 mg/dL (7.8-10.44); Carbon Dioxide 27 mmol/L (23-31); Cardiac Risk 3.4 (Less than 4.5); Chloride 105 mmol/L (98-107); Cholesterol 151 mg/dl (< 200 Desired); Estimated GFR-MDRD 83; Glucose 85 mg/dL (83-110); HDL Cholesterol 44 mg/dL (>60 Neg Risk); LDL Cholesterol, Calculated 96 mg/dL; Magnesium 1.7 mg/dL (1.6-2.6); Potassium 3.1 mmol/L (3.5-5.1); Sodium 142 mmol/L (136-145); Triglycerides 55 mg/dL (Less than 150)
[2019-12-02] MEDS: hydrALAZINE 20 MG/ML VIAL SLOW IVP PRN (10:26)
[2019-12-02 12:14] LABS: Troponin I 0.024 ng/mL (< 0.028)
[2019-12-02 12:20] LABS: Amphetamine Not Detected (NotDetected); Barbiturates Screen Not Detected (NotDetected); Benzodiazepine Screen Not Detected (NotDetected); Cocaine Metabolite Screen Detected (NotDetected); Medtox Control Line Valid? VALID (VALID); Medtox Reader # READER 4; Methadone Not Detected (NotDetected); Methamphetamine Not Detected (NotDetected); Opiate Screen Detected (NotDetected); Oxycodone Screen Not Detected (NotDetected); Phencyclidine (PCP) Not Detected (NotDetected); THC/Cannabinoid Screen Not Detected (NotDetected); Tricyclic Screen Not Detected (NotDetected)
[2019-12-02 13:48] LABS: SARS-CoV-2 MS2 Positive; SARS-CoV-2 N Gene Negative; SARS-CoV-2 S Gene Negative; SARS-CoV-2 by NAA Not Detected (NotDetected); SARS-CoV-2 orf1ab Negative
--- NOTE | 2019-12-02 14:44 | CON ---
DATE OF CONSULTATION: 12/02/2019 REASON FOR CONSULTATION: Sustained VT. PRIMARY NURSING ASSOC: Michele Carrasco MD HISTORY OF PRESENT ILLNESS: Mr. La is a 69-year-old gentleman, who comes to the hospital for chest pain. He started complaining of midsternal chest pain about an hour before arrival to the ER, which was about 8 p.m. yesterday. He received aspirin and nitroglycerin on EMS, and he states by the time he came in, his symptoms almost resolved. He is back to normal. He denies any more chest pain, tightness, pressure. No shortness of breath. During his admission yesterday, he had an episode of 1 minute of wide-complex rhythm, heart rate was in the 170s, but that is resolved since. PAST MEDICAL HISTORY: 1. Jkcd-yj-rcktftrm coronary artery disease on heart catheterization just a little over a year ago with Dr. Carrasco. He had a distal LAD 50% lesion, otherwise just mild disease. 2. Nonischemic cardiomyopathy. His EF was about 45% to 50% at one time. Last echo was done on August of 2018 and he was at 50% to 55%. 3. Hypertension. 4. History of GI bleed secondary to ulcerative disease. 5. Cocaine abuse. He states last time was yesterday. PAST SURGICAL HISTORY: Cardiac catheterization in 2019 showing just [id number] CAD. This is unchanged as compared to a cardiac catheterization in 2017. FAMILY HISTORY: Maternal grandmother, [place] at 60. Father, [place] at 60. Brother had stroke. SOCIAL HISTORY: Smokes about 5 cigarettes a day. No alcohol for 15 years. Cocaine abuse, last used yesterday. ALLERGIES: NO KNOWN DRUG ALLERGIES. OUTPATIENT MEDICATIONS: 1. Lisinopril mg b.i.d. 2. Gabapentin 300 mg t.i.d. 3. Lasix . 4. Carvedilol 3.125 b.i.d. 5. Atorvastatin 40 mg at bedtime. 6. Aspirin 81 a day. 7. Norvasc 5 mg a day. 8. Tylenol p.r.n. 9. Potassium chloride 20 mEq b.i.d. REVIEW OF SYSTEMS: A 12-point review of systems was done and was found to be negative other than stated in the history of present illness. PHYSICAL EXAMINATION: VITAL SIGNS: Temperature 97.5, pulse 66, respiratory rate 14, saturation 96% on 2 L nasal cannula, and blood pressure 155/84. GENERAL: Awake, alert, oriented x3, in no distress. HEENT: Normocephalic, atraumatic. NECK: Supple. LUNGS: Clear. CARDIOVASCULAR: S1 and S2. No S3 or S4. No murmurs. ABDOMEN: Soft. Positive bowel sounds. EXTREMITIES: No edema. SKIN: Warm and dry. LABORATORY DATA: Laboratory work was reviewed. CBC was unremarkable. Coags were normal. Chemistry was unremarkable except for potassium of 3.1. Troponin was 0.03 and 0.02, so pretty much normal. Triglycerides of 55, total cholesterol 151, LDL of 96, and HDL of 44. Urine drug screen was positive for cocaine. COVID PCR was not detected. Chest x-ray was unremarkable. ASSESSMENT AND PLAN: 1. Sustained ventricular tachycardia. Most likely related to cocaine abuse. 2. Chest pain. 3. Substance abuse, positive cocaine on urine. 4. Dzvk-dn-fzrvdpvl coronary artery disease on several repeat catheterizations, unlikely this is an acute coronary syndrome, most likely related to 69-year-old using cocaine. 5. Hypertension. Again, likely secondary to cocaine use. PLAN: 1. We will repeat echocardiogram. 2. Counseled the patient on cessation of use. He is high risk mortality for this. We may need to call Electrophysiology to see if there is anything that needs to be done for his nonsustained VT. 3. We will get an echocardiogram to assess LV function and make sure it has not changed. 4. I do not think he needs a repeat catheterization as most likely his episode of chest pain and VT were all triggered by cocaine use and not any significant coronary artery disease. Thank you for letting us to participate in the care of your patient. Dr. Carrasco, his primary tapper supervisor, will follow in the morning. Job ID: [id number]
[2019-12-02] MEDS: Potassium Chloride 20 MEQ TAB PO SCH (16:39)
--- NOTE | 2019-12-02 19:11 | HP ---
CHIEF COMPLAINT: Chest pain. PRIMARY CARE PHYSICIAN: Ramya Fisher. HISTORY OF PRESENT ILLNESS: The patient is a 69-year-old gentleman, who has significant past medical histories of CAD, hypertension, peptic ulcer disease, dyslipidemia, drug abuse, who presented to the ED with complaining of chest discomfort. The patient reports that his symptoms started yesterday, with sharp shooting pain that radiated to his left arm. The patient reports that his symptom has occurred intermittently for the past month, but progressively worse since yesterday. He also reports that he used cocaine yesterday. Initial workup in the ED showed that he had bradycardia. Potassium of 3.1. Initial troponins were negative. He subsequently went into nonsustained ventricular tachycardia, reported that he had a 22-beat run. He was started on amiodarone drip. He became bradycardic, with a heart rate in the low 40s. For that reason, his amiodarone was discontinued. Repeated troponins went up slightly to 0.03. At the time I evaluated the patient, he denied any chest pain. The patient endorsed associated with short of breath. No fever or chills. No cough. No recent travel history. The patient is an inmate. He used to smoke and used cocaine. PAST MEDICAL HISTORY: 1. CAD. 2. Hypertension. 3. Dyslipidemia. 4. GERD. PAST SURGICAL HISTORY: None. ALLERGIES: NO KNOWN DRUG ALLERGIES. FAMILY HISTORY: The patient reported multiple family members with histories of "heart problem." SOCIAL HISTORY: The patient is an inmate. He used to smoke, and reported using cocaine from time to time. REVIEW OF SYSTEMS: Complete review of systems has been assessed and discussed with the patient. Negative and positive pertinent symptoms noted in the HPI. Otherwise, complete review of systems reviewed and negative. PHYSICAL EXAMINATION: VITAL SIGNS: Temperature is 97.6, heart rate 52, respiratory rate 12, O2 saturation 100% on 2 L, blood pressure is 168/93. GENERAL APPEARANCE: The patient is alert and oriented x3. He is not in acute distress. HEENT: Normocephalic and atraumatic. Mucous membranes are moist. NECK: Supple. No lymphadenopathy. No JVD. CARDIOVASCULAR: Bradycardia. S1 and S2 noted. No murmur. RESPIRATORY: Clear to auscultation bilaterally. No wheezing. ABDOMEN: Soft, nontender, nondistended. Positive bowel sounds. EXTREMITIES: No edema. NEUROLOGIC: Cranial nerves 2 through 12 grossly intact. No focal weakness. PSYCHIATRIC: The patient alert and oriented x3. Normal affect. LABORATORY DATA: CBC; WBC 6.9, hemoglobin 14.4, hematocrit 42.4, platelet 171. Chemistry; sodium 141, potassium 3.1, chloride is 104, carbon dioxide 25, anion gap 15, BUN 10, creatinine is 1.1. AST and ALT within normal limits. Troponin 0.024, 0.033. IMAGING STUDIES: Chest x-ray negative for acute cardiopulmonary process. ASSESSMENT AND PLAN: This is a 69-year-old gentleman, who is an inmate, with significant past medical histories of coronary artery disease. He had a left heart catheterization done in 2019, showed [id number]-[id number] coronary artery disease. He also had hypertension, dyslipidemia, who presented to the ED with complaint of chest pain. Prior to admission, the patient also reported that he used cocaine. 1. Chest pain with mildly elevated troponin, may be related to recent cocaine use. However, he does have elevated risk factor for CAD. The patient will be admitted to tele for observation. We will continue with serial enzyme, repeat echo to assess LV function. Cardiology has been consulted for further recommendation. 2. Nonsustained ventricular tachycardia. The patient was started on amiodarone drip. He converted back, however, he became bradycardic. Amiodarone drip was discontinued. His electrolytes will be corrected. Cardiology has been consulted as above. 3. Coronary artery disease with left heart catheterization back in 2019, so xejb-ru-[id number] coronary artery disease. Resume home medication including aspirin, DANIE inhibitor. The patient is not a candidate for beta-derrick at this point due to bradycardia. 4. Bradycardia. Continue serial enzymes, cardiac workup as mentioned above. His amiodarone was discontinued. Continue tele monitor. 5. Hypokalemia, repleted. Check magnesium. Repeat labs. 6. Essential hypertension. Blood pressure is uncontrolled. We will resume his home medication and start p.r.n. hydralazine IV with parameters. 7. Dyslipidemia. Check fasting lipid panel, resume statin therapy. 8. Cocaine abuse. The patient had been counseled with avoiding recreational drug use. 9. Tobacco dependence disorder. Again, the patient has been counseled with regard to smoking cessation. 10. Deep venous thrombosis prophylaxis, Lovenox subcu. Thank you for allowing us to participate in this patient's care. Job ID: [id number] [facility]ITAL[facility]
[2019-12-02] MEDS ORDERED: Atorvastatin Calcium 40 MG TAB PO SCH (21:00)
[2019-12-03] MEDS ORDERED: Magnesium 2 GM/50 ML 2 GM in Premix Bag 1 BAG IVPB SCH (08:00)
[2019-12-03] MEDS ORDERED: Potassium Chloride 20 MEQ TAB PO SCH (08:00)
[2019-12-03] MEDS: Potassium Chloride 20 MEQ TAB PO SCH ×2 (08:18→16:41)
[2019-12-03] MEDS: Amlodipine 5 MG TAB PO SCH (08:19)
[2019-12-03] MEDS: Gabapentin 300 MG CAP PO SCH ×3 (08:19→21:31)
[2019-12-03] MEDS: Aspirin 81 mg Enteric Coated Tablet PO SCH (08:19)
[2019-12-03] MEDS: Enoxaparin Sodium 40 MG/0.4 ML SYRINGE SC SCH (08:20)
[2019-12-03] MEDS: Lisinopril 20 MG TAB PO SCH (08:20)
[2019-12-03] MEDS: Furosemide 20 MG TAB PO SCH (08:20)
[2019-12-03 09:14] LABS: Anion Gap 10 mmol/L (10-20); BUN (Urea Nitrogen) 17 mg/dL (8.4-25.7); Calc. Creatinine Clearance 50 mL/min (70-130); Calcium 8.9 mg/dL (7.8-10.44); Carbon Dioxide 27 mmol/L (23-31); Chloride 103 mmol/L (98-107); Estimated GFR-MDRD 57; Glucose 143 mg/dL (83-110); Magnesium 1.6 mg/dL (1.6-2.6); Sodium 137 mmol/L (136-145)
[2019-12-03 09:19] LABS: Potassium 2.8 mmol/L (3.5-5.1)
--- NOTE | 2019-12-03 10:06 | PDOC.HOSPP ---
- Subjective Subjective: feeling OK, multiple electrolytes abn. no further nsvt noted. Nursing staff reports, no further workup from EP. - Objective Vital Signs & Weight: Vital Signs (12 hours) Temp Pulse Resp BP Pulse Ox 12/03/19 08:24 65 147/89 H 12/03/19 08:05 97.8 F 71 16 189/88 H 95 12/03/19 04:16 98.2 F 61 18 157/97 H 95 Weight Weight 169 lb I&O: 12/02/19 12/03/19 12/04/19 06:59 06:59 06:59 Intake Total 1280 Output Total 975 Balance 305 Result Diagrams: 12/01/19 21:14 12/03/19 08:19 Hospitalist ROS - Medication Medications: Active Medications Generic Name Dose Route Start Last Admin Trade Name Freq PRN Reason Stop Dose Admin Amlodipine Besylate 5 mg 12/02/19 09:00 12/03/19 08:19 Norvasc PO 5 mg DAILY MELBA Administration Aspirin 81 mg 12/02/19 09:00 12/03/19 08:19 Ecotrin PO 81 mg DAILY MELBA Administration Atorvastatin Calcium 40 mg 12/02/19 21:00 12/02/19 20:22 Lipitor PO 40 mg HS MELBA Administration Enoxaparin Sodium 40 mg 12/02/19 09:00 12/03/19 08:20 Lovenox SC 40 mg 0900 MELBA Administration Gabapentin 300 mg 12/02/19 09:00 12/03/19 08:19 Neurontin PO 300 mg TID MELBA Administration Hydralazine HCl 10 mg 12/02/19 09:07 12/02/19 10:26 Apresoline SLOW IVP 10 mg Q4H PRN Administration Persistent BP Elevations Lisinopril 20 mg 12/02/19 09:00 12/03/19 08:20 Zestril PO 20 mg BID MELBA Administration Potassium Chloride 20 meq 12/02/19 17:00 12/03/19 08:18 K-Dur PO 20 meq BID-WM MELBA Administration - Exam General Appearance: NAD Eye: PERRL, anicteric sclera ENT: normocephalic atraumatic Neck: supple, symmetric Heart: RRR Respiratory: CTAB Hosp A/P - Plan Chest pain NSVT Cocaine abuse CAD Electrolyte Abnormalities - Hypomag/k THERESE Plan Echo reviewed - around EF45%. Appreciate cardiology input. correcting lytes. Cr went up slightly, start gentle IVF. hold ACEi for now. rpt labs.
[2019-12-03] MEDS: NS 0.9% w/ 20 MEQ KCL 1,000 ML IV SCH (10:50)
--- NOTE | 2019-12-03 13:28 | CON ---
DATE OF CONSULTATION: 12/03/2019 REASON FOR CONSULTATION: Ventricular tachycardia. Consultation performed by Dr. Rolando Leal, who is the consulting physician. PRIMARY SALES REPRESENTATIVE MEATS: Michele Carrasco MD HISTORY OF PRESENT ILLNESS: Mr. La is a 69-year-old male, who presented to the hospital with chest pain that was midsternal on 11/30. This had resolved upon his arrival to the ER via EMS. Cardiology was consulted. He was seen to have some nonsustained ventricular tachycardia and also some PAT runs. He reports ongoing cocaine abuse. EP consultation has been requested for management of his ventricular tachycardia. Reportedly, he had a longer episode of wide-complex tachycardia while in the emergency room, 45 seconds in duration. There was concern of his ventricular tachycardia and he was given IV amiodarone bolus. He was not symptomatic with this occurrence. REVIEW OF SYSTEMS: Negative for heart racing, palpitations, chest pain, pressure, syncope, near syncope, stroke, or stroke-like symptoms. His symptoms have resolved at this time. PAST MEDICAL HISTORY: 1. Nonsustained ventricular tachycardia. 2. Ezbf-lc-kpsacftb coronary artery disease, left heart catheterization in mid 2018, distal LAD 50% lesion. 3. Nonischemic cardiomyopathy, LVEF previously 45% to 50%, echo in August 2017 shows 50% to 55%. 4. Hypertension. 5. Ongoing cocaine abuse. 6. History of GI bleed related to an ulcer. FAMILY HISTORY: Positive for myocardial infarction early in the young onset. Positive for stroke. SOCIAL HISTORY: Positive for tobacco. Positive for cocaine. Negative for alcohol. ALLERGIES: NO KNOWN DRUG ALLERGIES. HOME MEDICATIONS: Include; 1. Lisinopril 20 mg b.i.d. 2. Gabapentin 300 mg t.i.d. 3. Lasix 20 mg daily. 4. Coreg 3.125 mg b.i.d. 5. Lipitor 40 mg at bedtime. 6. Aspirin 81 mg daily. 7. Norvasc 5 mg daily. 8. Tylenol as needed. 9. K-Dur 20 mEq b.i.d. OBJECTIVE: VITAL SIGNS: Temperature 98.5, pulse 62, blood pressure 162/89, respirations 20, and oxygen 95% on room air. GENERAL: The patient is alert and oriented. Speech is clear. Affect is appropriate. No apparent distress. Resting comfortably in bed at the time of the exam. HEENT: Normocephalic and atraumatic. Sclerae are anicteric. EOMs are intact. NECK: Supple without jugular venous distention. There is no lymphadenopathy. Trachea is midline. CARDIAC: Heart rate is irregularly irregular with crisp S1 and S2. No significant murmur, rub, or gallop is appreciated. LUNGS: Clear to auscultation bilaterally without wheezes, crackles, or rhonchi. EXTREMITIES: Warm and dry to touch. Well perfused without clubbing, cyanosis, or edema. ABDOMEN: Soft and nontender without palpable masses. Hepatojugular reflux is negative. NEUROLOGIC: Grossly intact and nonfocal. Gait was not assessed. LABORATORY DATA: Hematology was unremarkable. Chemistry; potassium 2.8 this morning, potassium was 3.1 on presentation; creatinine 1.47; magnesium 1.8. Echocardiogram on 12/01/2028, LVEF 45% to 50% with grade 2/3 diastolic dysfunction, mild valvular disease with inferior and inferolateral hypokinesis. DATABASE: Telemetry and EKG show largely sinus rhythm with occasional PAT runs. Unfortunately, the 45-second episode of wide-complex tachycardia is not documented for review. IMPRESSION: 1. Recurrent chest pain. 2. Nonsustained ventricular tachycardia, chronic issue, status post IV amiodarone bolus. 3. Wide-complex tachycardia. 4. Substance abuse with ongoing cocaine, positive in urine. 5. Nonischemic cardiomyopathy with mildly reduced left ventricular ejection fraction. 6. Hypertension. 7. Hypertensive heart disease. 8. Hypomagnesemia and also hypokalemia. PLAN AND RECOMMENDATIONS: Mr. La is a 69-year-old gentleman, who struggled with ongoing cocaine use. He presented to the emergency room with chest pain and is seen to have nonsustained ventricular tachycardia arrhythmia issues. This is most likely related to his ongoing cocaine abuse. Reportedly, there was a 45-second episode of wide-complex tachycardia, which unfortunately is not documented for my review. This could be ventricular tachycardia or it could be his paroxysmal atrial tachycardia with aberrancy. Either way, the answer for him is to stop using cocaine. His recent echocardiogram shows no significant change in his ejection fraction. I would recommend repleting his potassium to a level greater than 4 and magnesium to goal greater than 2. No recurrent arrhythmia issue has been seen since he was given his IV amiodarone bolus. I would recommend adding verapamil to his medical regimen to address both his hypertension and prevent further complications with his cocaine/stimulant use. At this point, he is not a candidate for an ICD. Thank you for allowing me to participate in the care of this patient. Job ID: [id number]
[2019-12-03 15:10] LABS: Anion Gap 14 mmol/L (10-20); BUN (Urea Nitrogen) 18 mg/dL (8.4-25.7); Calc. Creatinine Clearance 51 mL/min (70-130); Calcium 8.8 mg/dL (7.8-10.44); Carbon Dioxide 27 mmol/L (23-31); Chloride 101 mmol/L (98-107); Estimated GFR-MDRD 58; Glucose 88 mg/dL (83-110); Magnesium 2.2 mg/dL (1.6-2.6); Potassium 3.7 mmol/L (3.5-5.1); Sodium 138 mmol/L (136-145)
[2019-12-03] MEDS: Carvedilol 3.125 MG TAB PO SCH (16:41)
[2019-12-03] MEDS ORDERED: Atorvastatin Calcium 40 MG TAB PO SCH (21:00)
[2019-12-04] MEDS: hydrALAZINE 20 MG/ML VIAL SLOW IVP PRN (03:48)
[2019-12-04 05:24] LABS: Anion Gap 14 mmol/L (10-20); BUN (Urea Nitrogen) 13 mg/dL (8.4-25.7); Calc. Creatinine Clearance 65 mL/min (70-130); Calcium 8.1 mg/dL (7.8-10.44); Carbon Dioxide 20 mmol/L (23-31); Chloride 107 mmol/L (98-107); Estimated GFR-MDRD 78; Glucose 93 mg/dL (83-110); Magnesium 1.9 mg/dL (1.6-2.6); Potassium 4.2 mmol/L (3.5-5.1); Sodium 137 mmol/L (136-145)
[2019-12-04] MEDS: NS 0.9% w/ 20 MEQ KCL 1,000 ML IV SCH (06:33)
[2019-12-04] MEDS: Gabapentin 300 MG CAP PO SCH ×2 (09:32→14:49)
[2019-12-04] MEDS: Aspirin 81 mg Enteric Coated Tablet PO SCH (09:32)
[2019-12-04] MEDS: Enoxaparin Sodium 40 MG/0.4 ML SYRINGE SC SCH (09:33)
[2019-12-04] MEDS: Amlodipine 5 MG TAB PO SCH (09:33)
[2019-12-04] MEDS: Potassium Chloride 20 MEQ TAB PO SCH (09:33)
[2019-12-04] MEDS: Carvedilol 3.125 MG TAB PO SCH (09:33)
[2019-12-04] MEDS ORDERED: Magnesium Oxide 400 MG TAB PO SCH (10:00)
[2019-12-04] MEDS ORDERED: hydrALAZINE 20 MG/ML VIAL SLOW IVP SCH (14:45)
[2019-12-04 16:44] VITALS: TEMP 98.1
[2019-12-04 16:45] VITALS: BP 200/99
--- NOTE | 2019-12-05 09:32 | DIS ---
DATE OF ADMISSION: 12/02/2019 DATE OF DISCHARGE: 12/04/2019 PRIMARY CARE PHYSICIAN: Dr. Tigre Reynolds. DISCHARGE DIAGNOSES: 1. Chest pain. 2. Nonsustained ventricular tachycardia, status post IV amiodarone bolus. 3. Wide-complex tachycardia. 4. Ongoing substance abuse, urine drug screen positive for cocaine. 5. Nonischemic cardiomyopathy with mild reduced EF. 6. Hypertensive heart disease. 7. Hypertension. 8. Electrolyte abnormalities with hypokalemia and hypomagnesemia. 9. Acute kidney injury. CONSULTATIONS: 1. Cardiology, Dr. Putnam. 2. EP Cardiology, Dr. Rolando Leal. IMAGING STUDY: 1. Chest x-ray, no acute cardiopulmonary process. 2. 2D echo, ejection fraction is 45% to 50%, grade 2/3 diastolic dysfunction, inferior and inferior lateral hypokinesis. HISTORY OF PRESENT ILLNESS AND BRIEF HOSPITAL COURSE: The patient is a 69-year-old gentleman, who has significant past medical histories of CAD, hypertension, peptic ulcer disease, dyslipidemia, histories of drug abuse, who presented to the ED with complaint of chest discomfort. The patient reports that he has sharp, shooting pain. Initial workup in the ED, found that he was slightly bradycardic and potassium was low. He subsequently developed nonsustained ventricular tachycardia. He has about 22-beat run of ventricular tachycardia. The patient was started on amiodarone bolus. His urine drug screen positive for cocaine, the patient had ongoing histories of drug abuse. Cardiology was consulted. The patient was seen by Dr. Putnam, since the patient had a left heart catheterization done in 2019, showing mild ischemic disease. Repeat echo showed no significant change. For that reason, no further workup was recommended, the patient was counseled with regard to avoid recreational drug use. We also consulted EP given his arrhythmia. The patient was seen by Dr. Leal again, likely due to his cocaine use. He recommended adding verapamil to prevent further complications given his ongoing drug use. His electrolytes have been corrected. At this time, he had no further chest pain. The patient is stable to discharge home. He will be discharged home with verapamil 120 mg daily along with magnesium daily. He will need to follow with his PCP next week to repeat electrolytes to make sure they all remain stable. ACTIVITY: As tolerated. DISPOSITION: The patient is stable to discharge home. DIET: Cardiac diet. FOLLOWUP CARE: The patient to follow with PCP in 1 to 2 weeks and recheck his electrolyte to make sure it remains stable. LABORATORY DATA: On discharge, WBC 6.9, hemoglobin 14.4, hematocrit 42.4, and platelets 171. COVID PCR negative. Urine drug screen positive for cocaine. Chemistry; sodium is 137, potassium 4.4, chloride is 107, carbon dioxide 20, BUN 13, creatinine is 1.1, magnesium 1.9. LDL 96. Troponins 0.02, 0.03, 0.02. PHYSICAL EXAMINATION: VITAL SIGNS: Temperature is 98.3, pulse 71, respiratory rate 16, O2 saturation 97% on room air, and blood pressure is 143/68. GENERAL APPEARANCE: The patient is alert and oriented x3. He is not in acute distress. HEENT: Normocephalic, atraumatic. Mucous membranes moist. NECK: Supple. No lymphadenopathy. No JVD. CARDIOVASCULAR: Regular rate and rhythm. S1 and S2 noted. No murmur. PULMONOLOGY: Clear to auscultation bilaterally. ABDOMEN: Soft, nontender, nondistended. Positive bowel sounds. EXTREMITIES: No edema. NEUROLOGIC: Cranial nerves II through XII grossly intact. No focal weakness. PSYCHIATRIC: The patient is alert and oriented x3 with normal affect. DISCHARGE MEDICATIONS: New medications: 1. Verapamil extended release 120 mg p.o. one tablet daily. 2. Magnesium oxide 400 mg one tablet p.o. daily. Continue current home medications including 1. Tylenol 500 mg p.o. p.r.n. q.6 for pain. 2. Norvasc 5 mg p.o. daily. 3. Aspirin 81 mg p.o. daily. 4. Lipitor 40 mg at bedtime. 5. Carvedilol 3.125 mg b.i.d. 6. Lasix 20 mg p.o. daily. 7. Gabapentin 300 mg t.i.d. 8. Lisinopril 20 mg p.o. b.i.d. 9. Potassium 20 mEq b.i.d. DISCHARGE INSTRUCTIONS: 1. The patient advised to take his medication as prescribed. 2. Avoid recreational drug use. 3. Follow up with PCP in 1 to 2 weeks to repeat electrolyte to make sure it remains stable. 4. The patient advised to return to the ED if his symptoms recurs or worsen. Thank you for allowing us to participate in this patient's care. Job ID: [id number]
== END 2019-12-04 16:30 | disposition home or self-care (01) | DRG 918 ==
LOC: ERS 20:52 → ERHOLD 12-02 00:20 → 2NO 12-02 03:38
PROVIDERS: ADMIT Internal Medicine; ATTEND Internal Medicine
DX: T40.5X1A Poisoning by cocaine, accidental (unintentional), initial encounter (principal); I47.1 Supraventricular tachycardia; I42.8 Other cardiomyopathies; N17.9 Acute kidney failure, unspecified; Y92.9 Unspecified place or not applicable; I25.10 Atherosclerotic heart disease of native coronary artery without angina pectoris; E78.5 Hyperlipidemia, unspecified; K27.9 Peptic ulcer, site unspecified, unspecified as acute or chronic, without hemorrhage or perforation; I10 Essential (primary) hypertension; E83.42 Hypomagnesemia; E87.6 Hypokalemia; F14.10 Cocaine abuse, uncomplicated; R00.1 Bradycardia, unspecified; Z20.828 Contact with and (suspected) exposure to other viral communicable diseases; Z87.891 Personal history of nicotine dependence
CPT/HCPCS: 36415; 71045; 80048; 80053; 80061; 80306; 83036; 83735; 84484; 85025; 85610; 87635; 93005; 93306; 94760; 96365; 96366; J0282; J0360; J1650; J3475; J7050; J7070; U0003

== ENCOUNTER 2020-02-20 12:55 | Inpatient (IN) | payer MEDICARE ==
--- NOTE | 2020-02-20 13:36 | RAD ---
PORTABLE CHEST: Date: 02/20/2020 HISTORY: Chest pain and cough. COMPARISON: 12/01/2019. FINDINGS: Evidence of hazy infiltrate in the right mid lung. Lung alonzo otherwise clear. No vascular congestion or significant effusion. Heart and mediastinum un remarkable. IMPRESSION: Evidence of hazy right mid lung infiltrate. Follow-up recommended. POS: [facility]
[2020-02-20 14:36] LABS: #Lymphocytes 0.9 thou/uL (1.20-3.40); #Monocytes 0.4 thou/uL (0.11-0.59); #Neutrophils 3.2 thou/uL (1.40-6.50); %Basophils 0.4 % (0.0-1.0); %Eosinophils 0.1 % (0.0-10.0); %Lymphocytes 19.8 % (21.0-51.0); %Monocytes 8.2 % (0.0-10.0); %Neutrophils 71.5 % (42.0-75.0); Mean Corpuscular HGB CONC 33.6 g/dL (32.0-36.0); Mean Corpuscular Hemoglobin 28.9 pg (27.0-31.0); Mean Corpuscular Volume 86.2 fL (78.0-98.0); Mean Platelet Volume 12.1 fL (7.4-10.4); Platelet Count 101 thou/uL (130-400); RBC Distribution Width 13.3 % (11.5-14.5); Red Blood Cell (RBC) Count 5.53 mill/uL (4.70-6.10); White Blood Cell (WBC) Count 4.4 thou/uL (4.8-10.8)
[2020-02-20 14:48] LABS: Platelet Morphology Comment Appears Decreased; RBC Morphology Normal
[2020-02-20] MEDS ORDERED: cefTRIAXone\\ROCEPHIN 2 GM VIAL ONE (15:00)
[2020-02-20] MEDS ORDERED: Azithromycin 500 MG VIAL ONE ×2 (15:26→15:46)
[2020-02-20] MEDS ORDERED: Albuterol 200 PUFF (6.7GM INHALER) ONE (15:45)
--- NOTE | 2020-02-20 16:54 | HP ---
PRIMARY CARE PHYSICIAN: Dr. Reynolds. CHIEF COMPLAINT: Cough and shortness of breath. HISTORY OF PRESENT ILLNESS: This is a 69-year-old male with a history of hypertension and coronary artery disease. He presents with a 2-week history of cough, subjective fevers, temperature up to 101 today at home. Cough is minimally productive. He has had some increased shortness of breath and generalized weakness and then some aching in his muscles. The patient got worse today and reported some pleuritic chest pain with cough and so called EMS. Per EMS, the patient had a temperature of 101, they did give nitroglycerin, a gram of Tylenol, and some fluid, and his temperature resolved by the time he got to the emergency room. He was saturating well on room air. The patient was found to be leukopenic and to have a right lower lobe early infiltrate on his chest x-ray and was given Rocephin and azithromycin in the emergency room. REVIEW OF SYSTEMS: CONSTITUTIONAL: Positive for fever and chills. EYES: He has had a little bit of blurred vision. No double vision. ENT: Occasional runny nose. No sore throat. CARDIOVASCULAR: No chest pain currently. No palpitations or racing heart. PULMONARY: See HPI. GASTROINTESTINAL: No abdominal pain. He did have some vomiting yesterday, none today. He has had a single diarrheal stool yesterday and another one today. No constipation. GENITOURINARY: No dysuria or hematuria. MUSCULOSKELETAL: Some generalized muscle aches, but no focal symptoms. SKIN: No rashes or lesions he has noted. NEUROLOGIC: No numbness, tingling, or focal weakness. PAST MEDICAL HISTORY: The patient is very poor historian. Past medical history is pieced together from the patient's chart as well as his history. 1. Coronary artery disease. [id number] coronary artery disease with distal LAD stenosis of 50% in 2019. 2. Nonsustained ventricular tachycardia from cocaine use. 3. Nonischemic cardiomyopathy with a most recent echo showing EF of 45% to 50% and grade 2/3 diastolic dysfunction. 4. Hypertension. 5. Hyperlipidemia. 6. Gastroesophageal reflux disease. 7. History of bleeding ulcer. PAST SURGICAL HISTORY: Cardiac catheterization. SOCIAL HISTORY: The patient smokes half pack of cigarettes per day. Last cocaine use was 2 weeks ago. Denies any current alcohol use. He is a full code. Should he be incapacitated, he states that his daughter would be his medical decision maker. Her name is Meg La. FAMILY HISTORY: Multiple family members with heart problems as well as strokes. ALLERGIES: NO KNOWN DRUG ALLERGIES. CURRENT MEDICATIONS: The patient does not remember his current medications. He thinks that they are the same as his most recent hospitalization. 1. Amlodipine 5 mg daily. 2. Aspirin 81 mg daily. 3. Atorvastatin 40 mg at night. 4. Carvedilol 3.125 mg twice a day. 5. Furosemide 20 mg daily. 6. Gabapentin 300 mg 3 times a day. 7. Lisinopril 20 mg twice a day. 8. Magnesium oxide 400 mg daily. 9. Potassium chloride 20 mEq twice a day. 10. Verapamil 120 mg extended release daily. PHYSICAL EXAMINATION: VITAL SIGNS: Blood pressure 160/100, pulse 78, respirations 20, temperature 98.5, O2 saturation 97% on room air. GENERAL: This is a well-developed, well-nourished male, in no acute distress. HEENT: Pupils equal, round, and reactive to light. Oropharynx clear without lesions, erythema, or exudate. NECK: Supple. No lymphadenopathy. No thyroid nodules or enlargement. No JVD. HEART: Regular rate and rhythm. No murmurs, rubs, or gallops. LUNGS: The patient has good air movement throughout in bilateral lungs. He does have some mild crackling in bilateral bases. No increased work of breathing. No wheezing. No tachypnea. ABDOMEN: Soft, nontender to palpation. Normoactive bowel sounds. No hepatosplenomegaly or other masses. EXTREMITIES: No clubbing, cyanosis, or edema. SKIN: No rashes or lesions noted. NEUROLOGIC: The patient moves all extremities equally. No facial droop. PSYCHIATRIC: Alert and oriented x3. Normal mood and affect. LABORATORY DATA: CBC with a white blood cell count of 4.4 with 19% lymphocytes, platelet count is a little low at 101. The remainder of the CBC is normal. Lactic acid was negative. His complete metabolic panel and troponins and other labs were hemolyzed, had to be redrawn. The results are still pending. Chest x-ray, I did review the chest x-ray done in the emergency room along with the radiologist's report. It does show some haziness in the right mid lung field concerning for infiltrate. EKG done in the emergency room shows normal sinus rhythm with right bundle branch block and left anterior fascicular block, which are similar to his previous EKGs. ASSESSMENT: 1. Community-acquired pneumonia with minimal criteria for sepsis with his temperature of 101 and his leukopenia. The patient has gotten Rocephin and azithromycin in the emergency room. We will continue those in the hospital. Blood cultures are pending. He does not need any oxygen right now. Due to the lymphopenia, a COVID test is pending and I will keep the patient on contact precautions until that comes back. We will observe the patient closely in the hospital overnight. If he is doing well tomorrow, still saturating well and tolerating his diet without vomiting, then he might be able to be discharged tomorrow. Otherwise, we can convert him to inpatient for a more prolonged IV antibiotic course. 2. Sepsis. 3. Hypertension, currently uncontrolled. We will resume the patient's home blood pressure medications along with some p.r.n.'s. 4. History of nonischemic cardiomyopathy. We will resume the patient's furosemide and potassium. 5. Mild to moderate coronary artery disease. We will resume the patient's home medications. 6. Gastrointestinal prophylaxis. Put the patient on famotidine twice a day. 7. Deep venous thrombosis prophylaxis. Put the patient on Lovenox subcu. 8. Code status: The patient is a full code. Should he be incapacitated, his daughter would be his medical decision maker. Job ID: [id number]
[2020-02-20 17:02] LABS: ALT (SGPT) 12 U/L (8-55); AST (SGOT) 25 U/L (5-34); Albumin 3.2 g/dL (3.4-4.8); Alkaline Phosphatase 44 U/L (40-110); Anion Gap 15 mmol/L (10-20); BUN (Urea Nitrogen) 14 mg/dL (8.4-25.7); Bilirubin, Total 0.6 mg/dL (0.2-1.2); CK (CPK) 185 U/L (30-200); Calc. Creatinine Clearance 0 mL/min (70-130); Calcium 7.9 mg/dL (7.8-10.44); Carbon Dioxide 22 mmol/L (23-31); Chloride 100 mmol/L (98-107); Estimated GFR-MDRD 82; Globulin 3.3 g/dL (2.4-3.5); Glucose 97 mg/dL (83-110); Potassium 3.5 mmol/L (3.5-5.1); Protein, Total 6.6 g/dL (5.8-8.1); Sodium 136 mmol/L (136-145)
[2020-02-20 17:31] LABS: CKMB 1.3 ng/mL (0-6.6)
[2020-02-20 18:05] LABS: SARS-CoV-2 NAA Rapid Test DETECTED (NotDetected)
[2020-02-20] MEDS ORDERED: Senokot S 8.6-50 MG TAB PO PRN (21:46)
[2020-02-20] MEDS ORDERED: Guaifenesin DM 100-10/5 ML UDCUP PO PRN (21:46)
[2020-02-20] MEDS ORDERED: Ondansetron ODT 4 MG TAB PO PRN (21:46)
[2020-02-20] MEDS ORDERED: Acetaminophen 650 MG Suppository PR PRN (21:46)
[2020-02-20 22:00] LABS: Troponin I 0.073 ng/mL (< 0.028)
[2020-02-20] MEDS ORDERED: Famotidine 20 MG TAB PO SCH (22:15)
[2020-02-20] MEDS: Gabapentin 300 MG CAP PO SCH (23:09)
[2020-02-20] MEDS: Atorvastatin Calcium 40 MG TAB PO SCH (23:09)
[2020-02-20] MEDS: Lisinopril 20 MG TAB PO SCH (23:09)
[2020-02-20] MEDS: Acetaminophen 325 MG TAB PO PRN (23:10)
[2020-02-20] MEDS: Potassium Chloride 20 MEQ TAB PO SCH (23:10)
[2020-02-20] MEDS: Carvedilol 3.125 MG TAB PO SCH (23:11)
[2020-02-21 00:39] LABS: Troponin I 0.092 ng/mL (< 0.028)
[2020-02-21 04:47] LABS: #Lymphocytes 0.9 thou/uL (1.20-3.40); #Monocytes 0.3 thou/uL (0.11-0.59); %Basophils 0.5 % (0.0-1.0); %Eosinophils 0.2 % (0.0-10.0); %Lymphocytes 21.2 % (21.0-51.0); %Monocytes 7.8 % (0.0-10.0); %Neutrophils 70.3 % (42.0-75.0); Hemoglobin 16.1 g/dL (14.0-18.0); Mean Corpuscular Hemoglobin 29.7 pg (27.0-31.0); Mean Corpuscular Volume 87.5 fL (78.0-98.0); Mean Platelet Volume 9.7 fL (7.4-10.4); Platelet Count 66 thou/uL (130-400); RBC Distribution Width 13.3 % (11.5-14.5); Red Blood Cell (RBC) Count 5.41 mill/uL (4.70-6.10); White Blood Cell (WBC) Count 4.3 thou/uL (4.8-10.8)
[2020-02-21] MEDS: Acetaminophen 325 MG TAB PO PRN ×3 (04:59→14:56)
[2020-02-21 05:08] LABS: Anion Gap 16 mmol/L (10-20); BUN (Urea Nitrogen) 13 mg/dL (8.4-25.7); Calc. Creatinine Clearance 110 mL/min (70-130); Calcium 7.9 mg/dL (7.8-10.44); Carbon Dioxide 20 mmol/L (23-31); Chloride 100 mmol/L (98-107); Estimated GFR-MDRD 86; Glucose 88 mg/dL (83-110); Potassium 3.9 mmol/L (3.5-5.1); Sodium 132 mmol/L (136-145)
--- NOTE | 2020-02-21 07:51 | PDOC.HOSPP ---
- Subjective Encounter Date: 02/21/20 Encounter Time: 11:10 Subjective: Patient feeling much better. Minimal cough. No shortness of breath. Hasn't eaten yet. - Objective Vital Signs & Weight: Vital Signs (12 hours) Temp Pulse Resp BP BP Pulse Ox 02/21/20 05:10 100.5 F H 85 18 160/98 H 97 02/21/20 01:08 99.2 F 142/85 H 02/20/20 23:11 102.6 F H 89 24 H 165/95 H 02/20/20 21:06 102.1 F H 90 24 H 177/107 H 95 Weight Weight 260 lb 9.6 oz I&O: 02/20/20 02/21/20 02/22/20 06:59 06:59 06:59 Intake Total 500 Output Total 225 Balance 275 Result Diagrams: 02/21/20 04:30 02/21/20 04:30 Hospitalist ROS - Review of Systems Constitutional: reports: fever (last night, none this morning). denies: chills Respiratory: reports: cough. denies: shortness of breath, SOB with excertion Cardiovascular: denies: chest pain, palpitations Gastrointestinal: denies: nausea, vomiting, abdominal pain - Medication Medications: Active Medications Generic Name Dose Route Start Last Admin Trade Name Freq PRN Reason Stop Dose Admin Acetaminophen 650 mg 02/20/20 21:46 02/21/20 04:59 Acetaminophen 325 Mg Tab PO 650 mg Q4H PRN Administration Headache/Fever/Mild Pain (1-3) Atorvastatin Calcium 40 mg 02/20/20 21:00 02/20/20 23:09 Atorvastatin Calcium 40 Mg Tab PO 40 mg HS MELBA Administration Carvedilol 3.125 mg 02/20/20 17:00 02/20/20 23:11 Carvedilol 3.125 Mg Tab PO 3.125 mg BID-WM MELBA Administration Gabapentin 300 mg 02/20/20 21:00 02/20/20 23:09 Gabapentin 300 Mg Cap PO 300 mg TID MELBA Administration Lisinopril 20 mg 02/20/20 21:00 02/20/20 23:09 Lisinopril 20 Mg Tab PO 20 mg BID MELBA Administration Potassium Chloride 20 meq 02/20/20 17:00 02/20/20 23:10 Potassium Chloride 20 Meq Tab PO 20 meq BID-WM MELBA Administration - Exam General Appearance: NAD, awake alert ENT: moist mucosa Heart: RRR, no murmur, no gallops, no rubs Respiratory: CTAB, no wheezes, no rales, no ronchi Gastrointestinal: soft, non-tender, non-distended, normal bowel sounds Psychiatric: normal affect, normal behavior, A&O x 3 Hosp A/P (1) Pneumonia due to COVID-19 virus Code(s): U07.1 - COVID-19; J12.89 - OTHER VIRAL PNEUMONIA Status: Acute (2) Elevated troponin Code(s): R79.89 - OTHER SPECIFIED ABNORMAL FINDINGS OF BLOOD CHEMISTRY Status: Acute (3) CAD (coronary artery disease) Code(s): I25.10 - ATHSCL HEART DISEASE OF [place] CORONARY ARTERY W/O ANG PCTRS Status: Chronic (4) HLD (hyperlipidemia) Code(s): E78.5 - HYPERLIPIDEMIA, UNSPECIFIED Status: Chronic (5) Hypertension Code(s): I10 - ESSENTIAL (PRIMARY) HYPERTENSION Status: Chronic (6) Polysubstance abuse Code(s): F19.10 - OTHER PSYCHOACTIVE SUBSTANCE ABUSE, UNCOMPLICATED Status: Chronic (7) Tobacco abuse Code(s): Z72.0 - TOBACCO USE Status: Chronic - Plan Patient sating well on room air. No sepsis criteria today. Indeterminate troponins due to sepsis and mild CAD. No evidence ACS. Starting dexamethasone. Can d/c home after lunch if continues to do well. Will need to isolate until symptoms resolved.
[2020-02-21] MEDS: Dexamethasone 4 MG TAB PO SCH (08:11)
[2020-02-21] MEDS: Aspirin 81 mg Enteric Coated Tablet PO SCH (08:12)
[2020-02-21] MEDS: Gabapentin 300 MG CAP PO SCH ×3 (08:13→20:23)
[2020-02-21] MEDS: Magnesium Oxide 400 MG TAB PO SCH (08:13)
[2020-02-21] MEDS: Potassium Chloride 20 MEQ TAB PO SCH ×2 (08:13→16:17)
[2020-02-21] MEDS: Amlodipine 5 MG TAB PO SCH (08:13)
[2020-02-21] MEDS: Carvedilol 3.125 MG TAB PO SCH ×2 (08:14→16:17)
[2020-02-21] MEDS: Lisinopril 20 MG TAB PO SCH ×2 (08:14→20:24)
[2020-02-21] MEDS: Furosemide 20 MG TAB PO SCH (08:14)
[2020-02-21] MEDS: Famotidine 20 MG TAB PO SCH ×2 (08:14→20:23)
[2020-02-21] MEDS: Enoxaparin Sodium 40 MG/0.4 ML SYRINGE SC SCH (08:15)
[2020-02-21] MEDS: Azithromycin 500 MG in Sodium Chloride 0.9% 250 ML 250 ML IVPB SCH (14:56)
[2020-02-21] MEDS: cefTRIAXone\\ROCEPHIN 1 GM in Sodium Chloride 0.9% 100 ML IVPB SCH (16:17)
[2020-02-21] MEDS: Atorvastatin Calcium 40 MG TAB PO SCH (20:23)
[2020-02-22 05:39] LABS: #Lymphocytes 1.1 thou/uL (1.20-3.40); #Monocytes 0.4 thou/uL (0.11-0.59); #Neutrophils 2.7 thou/uL (1.40-6.50); %Basophils 0.3 % (0.0-1.0); %Lymphocytes 25.6 % (21.0-51.0); %Monocytes 9.4 % (0.0-10.0); %Neutrophils 64.7 % (42.0-75.0); Hemoglobin 16.1 g/dL (14.0-18.0); Mean Corpuscular HGB CONC 33.5 g/dL (32.0-36.0); Mean Corpuscular Hemoglobin 28.5 pg (27.0-31.0); Mean Corpuscular Volume 85.2 fL (78.0-98.0); Mean Platelet Volume 10.9 fL (7.4-10.4); Platelet Count 75 thou/uL (130-400); RBC Distribution Width 13.2 % (11.5-14.5); Red Blood Cell (RBC) Count 5.64 mill/uL (4.70-6.10); White Blood Cell (WBC) Count 4.2 thou/uL (4.8-10.8)
[2020-02-22 05:49] LABS: Anion Gap 18 mmol/L (10-20); BUN (Urea Nitrogen) 19 mg/dL (8.4-25.7); Calc. Creatinine Clearance 110 mL/min (70-130); Calcium 8.5 mg/dL (7.8-10.44); Carbon Dioxide 20 mmol/L (23-31); Chloride 100 mmol/L (98-107); Estimated GFR-MDRD 86; Glucose 120 mg/dL (83-110); Potassium 3.7 mmol/L (3.5-5.1); Sodium 134 mmol/L (136-145)
[2020-02-22 06:21] VITALS: BMI 22.7
--- NOTE | 2020-02-22 07:21 | PDOC.HOSPP ---
- Subjective Encounter Date: 02/22/20 Encounter Time: 10:00 Subjective: Patient reports feeling a bit stronger today. Breathing better. Not much cough. No fever. - Objective Vital Signs & Weight: Vital Signs (12 hours) Temp Pulse Resp BP Pulse Ox 02/22/20 03:50 99.2 F 70 20 129/79 96 02/21/20 23:52 99.2 F 77 18 138/95 H 95 02/21/20 20:27 98.8 F 73 20 155/101 H 100 02/21/20 20:00 100 Weight Weight 160 lb 3.2 oz I&O: 02/21/20 02/22/20 02/23/20 06:59 06:59 06:59 Intake Total 500 1410 Output Total 225 350 Balance 275 1060 Result Diagrams: 02/22/20 05:02 02/22/20 05:02 Hospitalist ROS - Review of Systems Constitutional: denies: fever, chills Respiratory: reports: cough. denies: shortness of breath Cardiovascular: denies: chest pain, palpitations Gastrointestinal: denies: nausea, vomiting, abdominal pain - Medication Medications: Active Medications Generic Name Dose Route Start Last Admin Trade Name Freq PRN Reason Stop Dose Admin Acetaminophen 650 mg 02/20/20 21:46 02/21/20 14:56 Acetaminophen 325 Mg Tab PO 650 mg Q4H PRN Administration Headache/Fever/Mild Pain (1-3) Amlodipine Besylate 5 mg 02/21/20 09:00 02/21/20 08:13 Amlodipine 5 Mg Tab PO 5 mg DAILY MELBA Administration Aspirin 81 mg 02/21/20 09:00 02/21/20 08:12 Aspirin 81 Mg Enteric Coated Tablet PO 81 mg DAILY MELBA Administration Atorvastatin Calcium 40 mg 02/20/20 21:00 02/21/20 20:23 Atorvastatin Calcium 40 Mg Tab PO 40 mg HS MELBA Administration Carvedilol 3.125 mg 02/20/20 17:00 02/21/20 16:17 Carvedilol 3.125 Mg Tab PO 3.125 mg BID-WM MELBA Administration Dexamethasone 6 mg 02/21/20 08:00 02/21/20 08:11 Dexamethasone 4 Mg Tab PO 6 mg QAM-WM MELBA Administration Enoxaparin Sodium 40 mg 02/21/20 09:00 02/21/20 08:15 Enoxaparin Sodium 40 Mg/0.4 Ml Syringe SC Not Given 0900 [facility] Famotidine 20 mg 02/21/20 09:00 02/21/20 20:23 Famotidine 20 Mg Tab PO 20 mg BID MELBA Administration Furosemide 20 mg 02/21/20 09:00 02/21/20 08:14 Furosemide 20 Mg Tab PO 20 mg DAILY MELBA Administration Gabapentin 300 mg 02/20/20 21:00 02/21/20 20:23 Gabapentin 300 Mg Cap PO 300 mg TID MELBA Administration Ceftriaxone Sodium 1 gm/ 100 mls @ 200 mls/hr 02/21/20 16:00 02/21/20 16:17 Sodium Chloride IVPB 100 mls 1600 MELBA Administration Azithromycin 500 mg/ Sodium 250 mls @ 250 mls/hr 02/21/20 15:00 02/21/20 14:56 Chloride IVPB 250 mls Q24HR MELBA Administration Lisinopril 20 mg 02/20/20 21:00 02/21/20 20:24 Lisinopril 20 Mg Tab PO 20 mg BID MELBA Administration Magnesium Oxide 400 mg 02/21/20 09:00 02/21/20 08:13 Magnesium Oxide 400 Mg Tab PO 400 mg DAILY MELBA Administration Potassium Chloride 20 meq 02/20/20 17:00 02/21/20 16:17 Potassium Chloride 20 Meq Tab PO 20 meq BID-WM MELBA Administration Verapamil HCl 120 mg 02/21/20 09:00 02/21/20 08:12 Verapamil Er 120 Mg Tab PO 120 mg DAILY MELBA Administration - Exam General Appearance: NAD, awake alert ENT: moist mucosa Heart: RRR, no murmur, no gallops, no rubs Respiratory: CTAB, no wheezes, no rales, no ronchi Gastrointestinal: soft, non-tender, non-distended, normal bowel sounds Psychiatric: normal affect, normal behavior, A&O x 3 Hosp A/P (1) Pneumonia due to COVID-19 virus Code(s): U07.1 - COVID-19; J12.89 - OTHER VIRAL PNEUMONIA Status: Acute (2) Elevated troponin Code(s): R79.89 - OTHER SPECIFIED ABNORMAL FINDINGS OF BLOOD CHEMISTRY Status: Acute (3) CAD (coronary artery disease) Code(s): I25.10 - ATHSCL HEART DISEASE OF [place] CORONARY ARTERY W/O ANG PCTRS Status: Chronic (4) HLD (hyperlipidemia) Code(s): E78.5 - HYPERLIPIDEMIA, UNSPECIFIED Status: Chronic (5) Hypertension Code(s): I10 - ESSENTIAL (PRIMARY) HYPERTENSION Status: Chronic (6) Polysubstance abuse Code(s): F19.10 - OTHER PSYCHOACTIVE SUBSTANCE ABUSE, UNCOMPLICATED Status: Chronic (7) Tobacco abuse Code(s): Z72.0 - TOBACCO USE Status: Chronic (8) Thrombocytopenia Code(s): D69.6 - THROMBOCYTOPENIA, UNSPECIFIED Status: Acute - Plan Patient sating well on room air. Indeterminate troponins due to sepsis and mild CAD. No evidence ACS. Started dexamethasone. Drop in Platelets for uncertain reason. Holding Lovenox, but d-dimer improved anyway. Weak with ambulation and doesn't have a home, usually stays with friends. Will need SNF placement.
[2020-02-22] MEDS: Aspirin 81 mg Enteric Coated Tablet PO SCH (08:51)
[2020-02-22] MEDS: Magnesium Oxide 400 MG TAB PO SCH (08:51)
[2020-02-22] MEDS: Amlodipine 5 MG TAB PO SCH (08:52)
[2020-02-22] MEDS: Carvedilol 3.125 MG TAB PO SCH ×2 (08:52→16:11)
[2020-02-22] MEDS: Lisinopril 20 MG TAB PO SCH (08:52)
[2020-02-22] MEDS: Gabapentin 300 MG CAP PO SCH ×2 (08:52→16:11)
[2020-02-22] MEDS: Dexamethasone 4 MG TAB PO SCH (08:52)
[2020-02-22] MEDS: Potassium Chloride 20 MEQ TAB PO SCH ×2 (08:52→16:11)
[2020-02-22] MEDS: Furosemide 20 MG TAB PO SCH (08:52)
[2020-02-22] MEDS: Ondansetron PF 4 MG/2 ML Vial IVP PRN ×2 (08:53→16:11)
[2020-02-22] MEDS: Acetaminophen 325 MG TAB PO PRN (08:53)
[2020-02-22] MEDS: Enoxaparin Sodium 40 MG/0.4 ML SYRINGE SC SCH (08:54)
[2020-02-22] MEDS: Famotidine 20 MG TAB PO SCH (08:54)
--- NOTE | 2020-02-22 14:58 | DIS ---
DATE OF ADMISSION: 02/21/2020 DATE OF DISCHARGE: 02/22/2020 PRIMARY CARE PHYSICIAN: Dr. Reynolds. REASON FOR ADMISSION: Cough and shortness of breath. DIAGNOSES AT DISCHARGE: 1. COVID-19 pneumonia without hypoxia. 2. Indeterminate troponins. 3. Coronary artery disease. 4. Hyperlipidemia. 5. Hypertension. 6. Thrombocytopenia. 7. Polysubstance abuse. 8. Tobacco abuse. PROCEDURES: None. CONSULTATIONS: None. SUMMARY OF HOSPITAL COURSE: This is a 69-year-old male with a history of hypertension, mild to moderate coronary artery disease, and tobacco and cocaine abuse, who presented with two-week history of cough and subjective fevers. Fever went up to 101 on the day of admission, so he came into the emergency room. Cough is minimally productive. He had some increased shortness of breath and generalized weakness as well. He got some pleuritic chest pain with his cough, so he called EMS. He had a temperature of 101 with EMS. This resolved with Tylenol and he also found to be leukopenic. His chest x-ray showed hazy very subtle right mid lung infiltrate. The patient was put on antibiotics. He had a COVID test done. COVID test did eventually come back positive. The patient had some low platelet count of 100 and dropped to 66, so he had no Lovenox or heparin given in the hospital, but he was not having any bleeding. He was breathing well on room air the next day and was ambulating well, had improvement in his cough. He did have a temperature to 102 the day of admission, but no fever since. He had been started on some steroids, which will be continued. Patient was initially to be discharged home. However, he was weak from the Covid-19, not ambulating well, and discussing with him and his family he actually doesn't have a house. He has been staying at various friend's houses but doesn't have anywhere he can go safely while sick with Covid. Patient was eventually approved to go to [facility] and is being discharged there today. DISCHARGE MANAGEMENT: Discharged to [facility]. ACTIVITY: As tolerated. THERAPY: PT and OT DIET: Healthy heart, low-sodium diet. FOLLOWUP: Follow up with Dr. Reynolds in 7 days. He will need to get platelet count rechecked. DISCHARGE MEDICATIONS: 1. Dexamethasone 6 mg daily 8 tablets, dispensed for a full 10-day course. 2. Amlodipine 5 mg daily. 3. Aspirin 81 mg daily. 4. Atorvastatin 40 mg at night. 5. Carvedilol 3.125 mg twice a day. 6. Furosemide 20 mg daily. 7. Gabapentin 300 mg 3 times a day. 8. Lisinopril 20 mg twice a day. 9. Magnesium oxide 400 mg daily. 10. Potassium chloride 20 mEq twice a day. 11. Verapamil extended release 120 mg daily. 12. Acetaminophen as needed. 13. Protonix 40 mg daily Job ID: [id number] [facility] [place]
[2020-02-22] MEDS: Azithromycin 500 MG in Sodium Chloride 0.9% 250 ML 250 ML IVPB SCH (16:50)
[2020-02-22 17:11] VITALS: BP 136/97; TEMP 98.4
[2020-02-22] MEDS: cefTRIAXone\\ROCEPHIN 1 GM in Sodium Chloride 0.9% 100 ML IVPB SCH (18:06)
== END 2020-02-22 18:35 | disposition short-term general hospital (02) | DRG 871 ==
LOC: ERS 12:55 → INTOOBSV 15:24 → 2SW 15:24 → OBSVTOIN 02-21 15:48
PROVIDERS: ADMIT Emergency Medicine; ATTEND Emergency Medicine
DX: A41.89 Other specified sepsis (principal); U07.1 COVID-19; J12.89 Other viral pneumonia; I42.8 Other cardiomyopathies; I10 Essential (primary) hypertension; E78.5 Hyperlipidemia, unspecified; F17.210 Nicotine dependence, cigarettes, uncomplicated; R77.8 Other specified abnormalities of plasma proteins; F19.10 Other psychoactive substance abuse, uncomplicated; D69.6 Thrombocytopenia, unspecified; I25.10 Atherosclerotic heart disease of native coronary artery without angina pectoris; K21.9 Gastro-esophageal reflux disease without esophagitis; Z95.828 Presence of other vascular implants and grafts
CPT/HCPCS: 36415; 71045; 80048; 80053; 82550; 82553; 83605; 84484; 85025; 85379; 87040; 93005; 96365; 96367; 96374; G0378; J0456; J0696; J2405; J3490; J7050; J8540; U0002

== ENCOUNTER 2020-07-07 17:01 | Inpatient (IN) | payer MEDICARE ==
[2020-07-07 20:06] VITALS: BMI 23.6
[2020-07-07] MEDS ORDERED: hydrALAZINE 20 MG/ML VIAL SLOW IVP PRN (20:38)
[2020-07-07] MEDS ORDERED: Morphine 4 MG/ML VIAL SLOW IVP PRN (20:39)
[2020-07-07] MEDS ORDERED: Nitroglycerin 0.4 MG TAB (25 Tab Bottle) SL PRN (20:41)
[2020-07-07] MEDS ORDERED: Potassium Chloride 20 MEQ TAB PO SCH (20:45)
[2020-07-07] MEDS ORDERED: Magnesium Oxide 400 MG TAB PO SCH (20:45)
[2020-07-07] MEDS: Pantoprazole 40 MG VIAL IVP SCH (20:57)
[2020-07-07] MEDS: Acetaminophen 325 MG TAB PO PRN (20:57)
[2020-07-07 21:38] LABS: Troponin I 0.057 ng/mL (< 0.028)
[2020-07-08 00:45] LABS: Troponin I 0.065 ng/mL (< 0.028)
[2020-07-08] MEDS: Acetaminophen 325 MG TAB PO PRN (04:05)
[2020-07-08] MEDS: Ondansetron PF 4 MG/2 ML Vial IVP PRN (04:05)
[2020-07-08 05:05] LABS: #Basophils 0.1 thou/uL (0.0-0.2); #Eosinphils 0.2 thou/uL (0.0-0.7); #Lymphocytes 2.7 thou/uL (1.20-3.40); #Monocytes 0.7 thou/uL (0.11-0.59); #Neutrophils 2.7 thou/uL (1.40-6.50); %Eosinophils 3.6 % (0.0-10.0); %Lymphocytes 42.9 % (21.0-51.0); %Monocytes 10.2 % (0.0-10.0); %Neutrophils 42.3 % (42.0-75.0); Hemoglobin 14.5 g/dL (14.0-18.0); Mean Corpuscular HGB CONC 33.9 g/dL (32.0-36.0); Mean Corpuscular Hemoglobin 28.2 pg (27.0-31.0); Mean Corpuscular Volume 83.3 fL (78.0-98.0); Platelet Count 138 thou/uL (130-400); RBC Distribution Width 13.1 % (11.5-14.5); Red Blood Cell (RBC) Count 5.12 mill/uL (4.70-6.10); White Blood Cell (WBC) Count 6.4 thou/uL (4.8-10.8)
[2020-07-08 05:14] LABS: Anion Gap 16 mmol/L (10-20); BUN (Urea Nitrogen) 16 mg/dL (8.4-25.7); Calc. Creatinine Clearance 74 mL/min (70-130); Calcium 8.5 mg/dL (7.8-10.44); Carbon Dioxide 20 mmol/L (23-31); Chloride 104 mmol/L (98-107); Glucose 94 mg/dL (83-110); Magnesium 1.6 mg/dL (1.6-2.6); Potassium 3.3 mmol/L (3.5-5.1); Sodium 137 mmol/L (136-145)
[2020-07-08 09:18] LABS: SARS-CoV-2 PCR by NAA Not Detected (NotDetected)
[2020-07-08] MEDS ORDERED: Regadenoson 0.4 MG/5 ML SYRINGE ONE (10:25)
[2020-07-08] MEDS: Amlodipine 10 MG TAB PO SCH (11:44)
[2020-07-08] MEDS: Aspirin 81 mg Enteric Coated Tablet PO SCH (11:44)
[2020-07-08] MEDS: Pantoprazole 40 MG VIAL IVP SCH ×2 (11:45→20:11)
[2020-07-08] MEDS ORDERED: Furosemide 40 MG/4 ML VIAL SLOW IVP SCH (15:00)
[2020-07-08] MEDS: Atorvastatin Calcium 40 MG TAB PO SCH (20:11)
[2020-07-09] MEDS: Acetaminophen 325 MG TAB PO PRN (05:07)
[2020-07-09 05:22] LABS: #Eosinphils 0.2 thou/uL (0.0-0.7); #Lymphocytes 2.3 thou/uL (1.20-3.40); #Monocytes 0.5 thou/uL (0.11-0.59); #Neutrophils 2.5 thou/uL (1.40-6.50); %Basophils 0.7 % (0.0-1.0); %Eosinophils 3.5 % (0.0-10.0); %Lymphocytes 41.7 % (21.0-51.0); %Monocytes 9.8 % (0.0-10.0); %Neutrophils 44.3 % (42.0-75.0); Hemoglobin 14.3 g/dL (14.0-18.0); Mean Corpuscular HGB CONC 33.3 g/dL (32.0-36.0); Mean Corpuscular Hemoglobin 28.1 pg (27.0-31.0); Mean Corpuscular Volume 84.6 fL (78.0-98.0); Mean Platelet Volume 9.2 fL (7.4-10.4); Platelet Count 130 thou/uL (130-400); RBC Distribution Width 13.1 % (11.5-14.5); Red Blood Cell (RBC) Count 5.08 mill/uL (4.70-6.10); White Blood Cell (WBC) Count 5.6 thou/uL (4.8-10.8)
[2020-07-09] MEDS: Furosemide 40 MG/4 ML VIAL SLOW IVP SCH ×2 (05:28→14:22)
[2020-07-09 05:54] LABS: Anion Gap 11 mmol/L (10-20); BUN (Urea Nitrogen) 19 mg/dL (8.4-25.7); Calc. Creatinine Clearance 61 mL/min (70-130); Calcium 8.3 mg/dL (7.8-10.44); Carbon Dioxide 28 mmol/L (23-31); Chloride 104 mmol/L (98-107); Glucose 106 mg/dL (83-110); Magnesium 1.6 mg/dL (1.6-2.6); Potassium 3.6 mmol/L (3.5-5.1); Sodium 139 mmol/L (136-145)
[2020-07-09] MEDS: Amlodipine 10 MG TAB PO SCH (08:10)
[2020-07-09] MEDS: Pantoprazole 40 MG VIAL IVP SCH (08:10)
[2020-07-09] MEDS: Ondansetron PF 4 MG/2 ML Vial IVP PRN (08:10)
[2020-07-09] MEDS: Aspirin 81 mg Enteric Coated Tablet PO SCH (08:11)
[2020-07-09] MEDS ORDERED: Lidocaine 1% PF 5 ML VIAL ONE (10:36)
[2020-07-09] MEDS ORDERED: PROPOFOL 200 MG/20 ML VIAL ONE (10:36)
[2020-07-09] MEDS: Atorvastatin Calcium 40 MG TAB PO SCH (20:30)
[2020-07-09] MEDS: Lisinopril 10 MG TAB PO SCH (20:30)
[2020-07-10 05:15] LABS: #Eosinphils 0.2 thou/uL (0.0-0.7); #Lymphocytes 2.4 thou/uL (1.20-3.40); #Monocytes 0.6 thou/uL (0.11-0.59); #Neutrophils 2.5 thou/uL (1.40-6.50); %Basophils 0.5 % (0.0-1.0); %Eosinophils 3.9 % (0.0-10.0); %Monocytes 10.1 % (0.0-10.0); %Neutrophils 43.6 % (42.0-75.0); Hemoglobin 13.4 g/dL (14.0-18.0); Mean Corpuscular HGB CONC 33.6 g/dL (32.0-36.0); Mean Corpuscular Hemoglobin 28.3 pg (27.0-31.0); Mean Corpuscular Volume 84.3 fL (78.0-98.0); Mean Platelet Volume 9.6 fL (7.4-10.4); Platelet Count 139 thou/uL (130-400); Red Blood Cell (RBC) Count 4.72 mill/uL (4.70-6.10); White Blood Cell (WBC) Count 5.8 thou/uL (4.8-10.8)
[2020-07-10 05:38] LABS: Anion Gap 9 mmol/L (10-20); BUN (Urea Nitrogen) 20 mg/dL (8.4-25.7); Calc. Creatinine Clearance 67 mL/min (70-130); Calcium 8.3 mg/dL (7.8-10.44); Carbon Dioxide 27 mmol/L (23-31); Cardiac Risk 3.3 (Less than 4.5); Chloride 106 mmol/L (98-107); Cholesterol 138 mg/dl (< 200 Desired); Glucose 129 mg/dL (83-110); HDL Cholesterol 42 mg/dL (>60 Neg Risk); LDL Cholesterol, Calculated 76 mg/dL; Magnesium 1.6 mg/dL (1.6-2.6); Potassium 3.4 mmol/L (3.5-5.1); Sodium 139 mmol/L (136-145); Triglycerides 98 mg/dL (Less than 150)
[2020-07-10] MEDS: Aspirin 81 mg Enteric Coated Tablet PO SCH (07:46)
[2020-07-10] MEDS: Lisinopril 10 MG TAB PO SCH ×2 (07:46→22:00)
[2020-07-10] MEDS: Carvedilol 3.125 MG TAB PO SCH ×2 (07:47→16:56)
[2020-07-10] MEDS ORDERED: Amlodipine 10 MG TAB PO SCH (09:00)
[2020-07-10] MEDS ORDERED: Potassium Chloride 20 MEQ TAB PO SCH (14:15)
[2020-07-10] MEDS ORDERED: Furosemide 40 MG/4 ML VIAL SLOW IVP SCH (14:30)
[2020-07-10] MEDS ORDERED: Sodium Chloride 0.9% 500 ML IV SCH (15:30)
[2020-07-10 17:28] LABS: Amphetamine Not Detected (NotDetected); Barbiturates Screen Not Detected (NotDetected); Benzodiazepine Screen Not Detected (NotDetected); Cocaine Metabolite Screen Not Detected (NotDetected); Medtox Control Line Valid? VALID (VALID); Medtox Reader # READER 1; Methadone Not Detected (NotDetected); Methamphetamine Not Detected (NotDetected); Opiate Screen Not Detected (NotDetected); Oxycodone Screen Not Detected (NotDetected); Phencyclidine (PCP) Not Detected (NotDetected); THC/Cannabinoid Screen Not Detected (NotDetected); Tricyclic Screen Not Detected (NotDetected)
[2020-07-10] MEDS: Acetaminophen 325 MG TAB PO PRN (18:26)
[2020-07-10] MEDS: Atorvastatin Calcium 40 MG TAB PO SCH (21:59)
[2020-07-11 06:03] LABS: Anion Gap 14 mmol/L (10-20); BUN (Urea Nitrogen) 18 mg/dL (8.4-25.7); Calc. Creatinine Clearance 60 mL/min (70-130); Calcium 8.4 mg/dL (7.8-10.44); Carbon Dioxide 24 mmol/L (23-31); Chloride 101 mmol/L (98-107); Glucose 93 mg/dL (83-110); Magnesium 1.6 mg/dL (1.6-2.6); Potassium 3.7 mmol/L (3.5-5.1); Sodium 135 mmol/L (136-145)
[2020-07-11] MEDS: Carvedilol 3.125 MG TAB PO SCH (08:13)
[2020-07-11] MEDS: Aspirin 81 mg Enteric Coated Tablet PO SCH (08:13)
[2020-07-11] MEDS: Lisinopril 10 MG TAB PO SCH (08:13)
[2020-07-11] MEDS: Furosemide 40 MG TAB PO SCH ×2 (08:14→14:30)
[2020-07-11 11:56] VITALS: BP 104/60; TEMP 97.5
[2020-07-12] MEDS ORDERED: Potassium Chloride 10 MEQ TAB PO SCH (08:00)
== END 2020-07-11 15:08 | disposition home or self-care (01) | DRG 293 ==
LOC: 2SW 17:01 → OBSVTOIN 07-08 17:57
PROVIDERS: ADMIT Internal Medicine; ATTEND Internal Medicine
PROC: 0DB78ZX Excision of Stomach, Pylorus, Via Natural or Artificial Opening Endoscopic, Diagnostic (ICD-10-PCS; principal; 2020-07-09)
DX: I11.0 Hypertensive heart disease with heart failure (principal); Z20.822 Contact with and (suspected) exposure to COVID-19; K44.9 Diaphragmatic hernia without obstruction or gangrene; I50.43 Acute on chronic combined systolic (congestive) and diastolic (congestive) heart failure; I42.8 Other cardiomyopathies; K29.70 Gastritis, unspecified, without bleeding; E78.5 Hyperlipidemia, unspecified; K21.9 Gastro-esophageal reflux disease without esophagitis; D69.6 Thrombocytopenia, unspecified; E87.6 Hypokalemia; F14.10 Cocaine abuse, uncomplicated; R13.10 Dysphagia, unspecified; E78.00 Pure hypercholesterolemia, unspecified; R77.8 Other specified abnormalities of plasma proteins; I95.1 Orthostatic hypotension; Z28.21 Immunization not carried out because of patient refusal; Z79.899 Other long term (current) drug therapy; Z91.14 Patient's other noncompliance with medication regimen; Z85.028 Personal history of other malignant neoplasm of stomach; Z87.891 Personal history of nicotine dependence; Z86.16 Personal history of COVID-19; Z82.49 Family history of ischemic heart disease and other diseases of the circulatory system; Z87.11 Personal history of peptic ulcer disease
CPT/HCPCS: 36415; 78452; 80048; 80061; 80306; 83690; 83735; 85025; 87635; 88305; 88342; 93017; 93306; 94760; 96374; 96375; 96376; A9500; C9113; G0378; J1940; J2405; J2704; J2785; U0003; U0005

== ENCOUNTER 2020-12-26 18:24 | Observation (INO) | payer MEDICARE, MEDICAID ==
[2020-12-27 02:41] VITALS: BMI 31.7
[2020-12-27] MEDS ORDERED: Ondansetron PF 4 MG/2 ML Vial IVP PRN (03:05)
[2020-12-27] MEDS ORDERED: HYDROcodone/Acetaminophen 5/325 mg Tablet PO PRN (03:05)
[2020-12-27] MEDS ORDERED: Acetaminophen 325 MG TAB PO PRN (03:05)
[2020-12-27] MEDS ORDERED: hydrALAZINE 20 MG/ML VIAL SLOW IVP PRN (03:09)
[2020-12-27] MEDS ORDERED: Potassium Chloride 10 MEQ TAB PO SCH (03:15)
[2020-12-27 06:16] LABS: #Eosinphils 0.1 thou/uL (0.0-0.7); #Lymphocytes 2.8 thou/uL (1.20-3.40); #Monocytes 0.5 thou/uL (0.11-0.59); #Neutrophils 3.5 thou/uL (1.40-6.50); %Basophils 0.5 % (0.0-1.0); %Lymphocytes 40.2 % (21.0-51.0); %Monocytes 7.3 % (0.0-10.0); Hemoglobin 14.3 g/dL (14.0-18.0); Mean Corpuscular HGB CONC 31.5 g/dL (32.0-36.0); Mean Corpuscular Hemoglobin 27.2 pg (27.0-31.0); Mean Corpuscular Volume 86.3 fL (78.0-98.0); Mean Platelet Volume 8.5 fL (7.4-10.4); Platelet Count 133 thou/uL (130-400); RBC Distribution Width 12.8 % (11.5-14.5); Red Blood Cell (RBC) Count 5.25 mill/uL (4.70-6.10)
[2020-12-27 06:33] LABS: Anion Gap 11 mmol/L (10-20); BUN (Urea Nitrogen) 11 mg/dL (8.4-25.7); Calc. Creatinine Clearance 68 mL/min (70-130); Calcium 8.5 mg/dL (7.8-10.44); Carbon Dioxide 22 mmol/L (23-31); Chloride 106 mmol/L (98-107); Glucose 88 mg/dL (83-110); Magnesium 1.5 mg/dL (1.6-2.6); Potassium 3.5 mmol/L (3.5-5.1); Sodium 135 mmol/L (136-145)
[2020-12-27] MEDS ORDERED: Fentanyl 100 MCG/2 ML VIAL ONE (11:09)
[2020-12-27] MEDS ORDERED: Iothalamate Meglumine 60% 50 ML VIAL FS ONE (11:09)
[2020-12-27] MEDS ORDERED: Levofloxacin 500 mg/D5W 100 ml Premix Bag ONE (11:17)
[2020-12-27] MEDS ORDERED: Dexamethasone 20 MG/5 ML VIAL ONE (11:28)
[2020-12-27] MEDS ORDERED: ePHEDrine 50 MG/ML VIAL ONE (11:28)
[2020-12-27] MEDS ORDERED: Ondansetron PF 4 MG/2 ML Vial ONE (11:28)
[2020-12-27] MEDS ORDERED: PROPOFOL 200 MG/20 ML VIAL ONE (11:28)
[2020-12-27] MEDS ORDERED: Lidocaine 1% PF 5 ML VIAL ONE (11:28)
[2020-12-27] MEDS ORDERED: B & O 30 MG SUPP ONE (12:20)
[2020-12-27] MEDS ORDERED: Promethazine HCl 25 MG/ML VIAL IM PRN (12:33)
[2020-12-27] MEDS ORDERED: Promethazine HCl 25 MG/ML VIAL IVPB PRN (12:33)
[2020-12-27] MEDS ORDERED: Ondansetron HCl/PF 4 MG/2 ML Vial IVP PRN (12:33)
[2020-12-27] MEDS ORDERED: hydrALAZINE 20 MG/ML VIAL ONE (12:51)
[2020-12-27] MEDS ORDERED: Phenazopyridine HCl 97.5 MG TABLET PO SCH (16:08)
[2020-12-27] MEDS ORDERED: Carvedilol 3.125 MG TAB PO SCH (17:00)
[2020-12-27] MEDS ORDERED: Phenazopyridine HCl 100 MG TAB PO SCH (17:00)
[2020-12-27 19:38] VITALS: BP 166/90; TEMP 97.7
== END 2020-12-27 19:10 | disposition home or self-care (01) ==
LOC: INTOOBSV 18:24 → SURG B 18:24
PROVIDERS: ADMIT Internal Medicine; ATTEND Internal Medicine
PROC: 0TC78ZZ Extirpation of Matter from Left Ureter, Via Natural or Artificial Opening Endoscopic (ICD-10-PCS; principal; 2020-12-27)
PROC: 0T778DZ Dilation of Left Ureter with Intraluminal Device, Via Natural or Artificial Opening Endoscopic (ICD-10-PCS; 2020-12-27)
DX: N13.2 Hydronephrosis with renal and ureteral calculous obstruction (principal); Q62.5 Duplication of ureter; N17.9 Acute kidney failure, unspecified; I11.0 Hypertensive heart disease with heart failure; I50.42 Chronic combined systolic (congestive) and diastolic (congestive) heart failure; E78.5 Hyperlipidemia, unspecified; F17.210 Nicotine dependence, cigarettes, uncomplicated; N40.0 Benign prostatic hyperplasia without lower urinary tract symptoms; Z79.82 Long term (current) use of aspirin; Z79.899 Other long term (current) drug therapy
CPT/HCPCS: 36415; 74420; 80048; 82365; 83735; 85025; 88300; J0360; J1100; J1956; J2405; J2704; J3010; J3490; Q9961

== ENCOUNTER 2021-03-18 23:00 | Observation (INO) | payer MEDICARE, MEDICAID ==
[2021-03-18 23:53] LABS: #Eosinphils 0.2 thou/uL (0.0-0.7); #Lymphocytes 3.1 thou/uL (1.20-3.40); #Monocytes 0.7 thou/uL (0.11-0.59); #Neutrophils 3.9 thou/uL (1.40-6.50); %Basophils 0.6 % (0.0-1.0); %Eosinophils 2.9 % (0.0-10.0); %Lymphocytes 38.8 % (21.0-51.0); %Monocytes 8.7 % (0.0-10.0); %Neutrophils 49.1 % (42.0-75.0); Hemoglobin 13.8 g/dL (14.0-18.0); Mean Corpuscular HGB CONC 33.5 g/dL (32.0-36.0); Mean Corpuscular Volume 86.6 fL (78.0-98.0); Mean Platelet Volume 7.9 fL (7.4-10.4); Platelet Count 142 thou/uL (130-400); Red Blood Cell (RBC) Count 4.77 mill/uL (4.70-6.10); White Blood Cell (WBC) Count 7.9 thou/uL (4.8-10.8)
[2021-03-19 00:11] LABS: Bilirubin Negative (Negative); Blood, Urine 2+ (Negative); Clarity Clear (Clear); Glucose, Urine (Dipstick) Normal (Negative); Ketone, Urine Negative (Negative); Leukocyte 250 Leu/uL (Negative); Nitrite Negative (Negative); Protein, Urine (Dipstick) 30 mg/dL (Neg-Trace); RBC/HPF Greater than 50 HPF (0-3); Specific Gravity, Urine 1.022 (1.002-1.036); Squamous Epithelial 0-3 HPF (0-3); Urobilinogen Normal mg/dL (Less than 2); pH, Urine 5.5 (5.0-9.0)
[2021-03-19 00:17] LABS: ALT (SGPT) 18 U/L (8-55); AST (SGOT) 23 U/L (5-34); Albumin 3.5 g/dL (3.4-4.8); Alkaline Phosphatase 67 U/L (40-110); Anion Gap 13 mmol/L (10-20); BUN (Urea Nitrogen) 39 mg/dL (8.4-25.7); Bilirubin, Total 0.2 mg/dL (0.2-1.2); Calc. Creatinine Clearance 0 mL/min (70-130); Calcium 8.9 mg/dL (7.8-10.44); Carbon Dioxide 22 mmol/L (23-31); Chloride 104 mmol/L (98-107); Globulin 3.3 g/dL (2.4-3.5); Glucose 94 mg/dL (83-110); Potassium 3.9 mmol/L (3.5-5.1); Protein, Total 6.8 g/dL (5.8-8.1); Sodium 135 mmol/L (136-145)
[2021-03-19] MEDS: Sodium Chloride 0.9% 1,000 ML IV SCH ×2 (02:05→02:32)
[2021-03-19 05:14] LABS: Lactic Acid 0.9 mmol/L (0.5-2.2)
[2021-03-19] MEDS ORDERED: Acetaminophen 325 MG TAB PO PRN (05:17)
[2021-03-19] MEDS ORDERED: Ondansetron PF 4 MG/2 ML Vial IVP PRN (05:17)
[2021-03-19] MEDS ORDERED: Sodium Chloride 0.9% 1,000 ML IV SCH (05:19)
[2021-03-19] MEDS ORDERED: hydrALAZINE 20 MG/ML VIAL SLOW IVP PRN (05:53)
[2021-03-19] MEDS: Enoxaparin Sodium 40 MG/0.4 ML SYRINGE SC SCH (08:21)
[2021-03-19 08:27] VITALS: BMI 24.5
[2021-03-19 08:33] LABS: Hemoglobin 13.3 g/dL (14.0-18.0)
[2021-03-19 08:40] LABS: Lactic Acid 1.3 mmol/L (0.5-2.2)
[2021-03-19] MEDS ORDERED: FLU VACC QS2021-22(65YR UP)/PF 240 MCG/0.7 ML SYRINGE IM ONE (09:00)
[2021-03-19] MEDS: cefTRIAXone\\ROCEPHIN 1 GM in Sodium Chloride 0.9% 100 ML IVPB SCH (21:15)
[2021-03-20 07:04] LABS: #Basophils 0.1 thou/uL (0.0-0.2); #Eosinphils 0.2 thou/uL (0.0-0.7); #Lymphocytes 1.9 thou/uL (1.20-3.40); #Monocytes 0.4 thou/uL (0.11-0.59); #Neutrophils 2.2 thou/uL (1.40-6.50); %Basophils 1.2 % (0.0-1.0); %Eosinophils 4.1 % (0.0-10.0); %Lymphocytes 40.7 % (21.0-51.0); %Monocytes 8.8 % (0.0-10.0); %Neutrophils 45.3 % (42.0-75.0); Hemoglobin 15.3 g/dL (14.0-18.0); Mean Corpuscular HGB CONC 33.4 g/dL (32.0-36.0); Mean Corpuscular Hemoglobin 28.5 pg (27.0-31.0); Mean Corpuscular Volume 85.5 fL (78.0-98.0); Platelet Count 166 thou/uL (130-400); RBC Distribution Width 12.8 % (11.5-14.5); Red Blood Cell (RBC) Count 5.35 mill/uL (4.70-6.10); White Blood Cell (WBC) Count 4.8 thou/uL (4.8-10.8)
[2021-03-20 07:06] LABS: Anion Gap 12 mmol/L (10-20); BUN (Urea Nitrogen) 19 mg/dL (8.4-25.7); Calc. Creatinine Clearance 62 mL/min (70-130); Calcium 9.8 mg/dL (7.8-10.44); Carbon Dioxide 25 mmol/L (23-31); Chloride 102 mmol/L (98-107); Glucose 87 mg/dL (83-110); Sodium 134 mmol/L (136-145)
[2021-03-20] MEDS: Enoxaparin Sodium 40 MG/0.4 ML SYRINGE SC SCH (07:30)
[2021-03-20] MEDS: cefTRIAXone\\ROCEPHIN 1 GM in Sodium Chloride 0.9% 100 ML IVPB SCH (19:04)
[2021-03-21 06:09] LABS: #Eosinphils 0.2 thou/uL (0.0-0.7); #Lymphocytes 2.2 thou/uL (1.20-3.40); #Monocytes 0.5 thou/uL (0.11-0.59); #Neutrophils 3.3 thou/uL (1.40-6.50); %Basophils 0.6 % (0.0-1.0); %Eosinophils 3.4 % (0.0-10.0); %Lymphocytes 35.2 % (21.0-51.0); %Monocytes 8.6 % (0.0-10.0); %Neutrophils 52.3 % (42.0-75.0); Hemoglobin 14.6 g/dL (14.0-18.0); Mean Corpuscular HGB CONC 33.5 g/dL (32.0-36.0); Mean Corpuscular Hemoglobin 28.8 pg (27.0-31.0); Mean Platelet Volume 7.8 fL (7.4-10.4); Platelet Count 166 thou/uL (130-400); RBC Distribution Width 12.9 % (11.5-14.5); Red Blood Cell (RBC) Count 5.06 mill/uL (4.70-6.10); White Blood Cell (WBC) Count 6.2 thou/uL (4.8-10.8)
[2021-03-21 06:29] LABS: Anion Gap 10 mmol/L (10-20); BUN (Urea Nitrogen) 21 mg/dL (8.4-25.7); Calc. Creatinine Clearance 55 mL/min (70-130); Calcium 9.4 mg/dL (7.8-10.44); Carbon Dioxide 23 mmol/L (23-31); Chloride 106 mmol/L (98-107); Glucose 104 mg/dL (83-110); Potassium 4.3 mmol/L (3.5-5.1); Sodium 135 mmol/L (136-145)
[2021-03-21] MEDS: Enoxaparin Sodium 40 MG/0.4 ML SYRINGE SC SCH (08:23)
[2021-03-21 09:05] VITALS: BP 149/82; TEMP 98.4
== END 2021-03-21 12:46 | disposition home or self-care (01) ==
LOC: ERS 23:00 → T4-B 03-19 00:53
PROVIDERS: ADMIT Internal Medicine; ATTEND Internal Medicine
DX: A41.9 Sepsis, unspecified organism (principal); N39.0 Urinary tract infection, site not specified; N17.9 Acute kidney failure, unspecified; E87.1 Hypo-osmolality and hyponatremia; E87.2 Acidosis; I11.0 Hypertensive heart disease with heart failure; I50.42 Chronic combined systolic (congestive) and diastolic (congestive) heart failure; E78.5 Hyperlipidemia, unspecified; F17.210 Nicotine dependence, cigarettes, uncomplicated; D64.9 Anemia, unspecified; F14.10 Cocaine abuse, uncomplicated; Z79.82 Long term (current) use of aspirin; Z79.899 Other long term (current) drug therapy; Z20.822 Contact with and (suspected) exposure to COVID-19
CPT/HCPCS: 36415; 36416; 74176; 80048; 83605; 85014; 85018; 85025; 87086; 87804; 96365; 96375; G0378; J0696; J1650; J2405; J3490; J7050

== ENCOUNTER 2021-04-15 11:30 | Emergency (ER) | payer MEDICARE, MEDICAID ==
[2021-04-15] MEDS ORDERED: Pantoprazole 40 MG VIAL ONE (12:14)
[2021-04-15 12:34] LABS: #Basophils 0.1 thou/uL (0.0-0.2); #Eosinphils 0.1 thou/uL (0.0-0.7); #Lymphocytes 1.3 thou/uL (1.20-3.40); #Monocytes 0.6 thou/uL (0.11-0.59); %Eosinophils 1.1 % (0.0-10.0); %Lymphocytes 18.8 % (21.0-51.0); %Neutrophils 71.2 % (42.0-75.0); Hemoglobin 12.6 g/dL (14.0-18.0); Mean Corpuscular HGB CONC 33.4 g/dL (32.0-36.0); Mean Corpuscular Hemoglobin 28.6 pg (27.0-31.0); Mean Corpuscular Volume 85.5 fL (78.0-98.0); Mean Platelet Volume 7.7 fL (7.4-10.4); Platelet Count 151 thou/uL (130-400); RBC Distribution Width 12.6 % (11.5-14.5); Red Blood Cell (RBC) Count 4.41 mill/uL (4.70-6.10)
[2021-04-15 12:52] LABS: ALT (SGPT) 22 U/L (8-55); AST (SGOT) 28 U/L (5-34); Albumin 3.4 g/dL (3.4-4.8); Alkaline Phosphatase 54 U/L (40-110); Anion Gap 13 mmol/L (10-20); BUN (Urea Nitrogen) 43 mg/dL (8.4-25.7); Bilirubin, Total 0.8 mg/dL (0.2-1.2); Calc. Creatinine Clearance 0 mL/min (70-130); Calcium 9.4 mg/dL (7.8-10.44); Carbon Dioxide 25 mmol/L (23-31); Chloride 104 mmol/L (98-107); Globulin 2.9 g/dL (2.4-3.5); Glucose 90 mg/dL (83-110); Lipase 27 U/L (8-78); Potassium 4.3 mmol/L (3.5-5.1); Protein, Total 6.3 g/dL (5.8-8.1); Sodium 138 mmol/L (136-145)
== END 2021-04-15 15:11 | disposition home or self-care (01) ==
LOC: ERS 11:30
DX: K92.0 Hematemesis (principal); I11.0 Hypertensive heart disease with heart failure; I50.9 Heart failure, unspecified; F17.210 Nicotine dependence, cigarettes, uncomplicated
CPT/HCPCS: 36415; 80053; 83690; 85025; 86850; 86900; 86901; 96374; C9113

== ENCOUNTER 2021-12-23 12:16 | Inpatient (IN) | payer MEDICARE, MEDICAID ==
[2021-12-23] MEDS ORDERED: Ondansetron ODT 4 MG TAB PO PRN (18:57)
[2021-12-23] MEDS ORDERED: HYDROcodone/Acetaminophen 5/325 mg Tablet PO PRN (18:57)
[2021-12-23] MEDS ORDERED: Senokot S 8.6-50 MG TAB PO PRN (18:57)
[2021-12-23] MEDS ORDERED: Nitroglycerin 0.4 MG TAB (25 Tab Bottle) SL PRN (18:57)
[2021-12-23] MEDS ORDERED: Bisacodyl 10 MG SUPP PR PRN (18:57)
[2021-12-23] MEDS ORDERED: Bisacodyl 5 MG TAB PO PRN (18:57)
[2021-12-23] MEDS ORDERED: Ondansetron PF 4 MG/2 ML Vial IVP PRN (18:57)
[2021-12-23] MEDS ORDERED: Lactated Ringer's 1,000 ML IV SCH (19:30)
[2021-12-23 19:32] LABS: Hemoglobin A1c 5.7 % (4.0-6.0)
[2021-12-23] MEDS ORDERED: Ciprofloxacin 500 MG TAB PO SCH (20:00)
[2021-12-23 20:53] VITALS: BMI 22.8
[2021-12-23] MEDS: Atorvastatin Calcium 40 MG TAB PO SCH (21:27)
[2021-12-23 22:05] LABS: Amphetamine Not Detected (NotDetected); Barbiturates Screen Not Detected (NotDetected); Benzodiazepine Screen Not Detected (NotDetected); Cocaine Metabolite Screen Detected (NotDetected); Methadone Not Detected (NotDetected); Methamphetamine Not Detected (NotDetected); Opiate Screen Not Detected (NotDetected); Oxycodone Screen Not Detected (NotDetected); Phencyclidine (PCP) Not Detected (NotDetected); THC/Cannabinoid Screen Not Detected (NotDetected); Tricyclic Screen Not Detected (NotDetected)
[2021-12-23 22:41] LABS: Troponin I Less than 0.010 ng/mL (< 0.028)
[2021-12-24 05:07] LABS: #Eosinphils 0.1 thou/uL (0.0-0.7); #Lymphocytes 2.2 thou/uL (1.20-3.40); #Monocytes 0.5 thou/uL (0.11-0.59); #Neutrophils 2.7 thou/uL (1.40-6.50); %Basophils 0.7 % (0.0-1.0); %Eosinophils 2.4 % (0.0-10.0); %Lymphocytes 39.6 % (21.0-51.0); %Monocytes 9.6 % (0.0-10.0); %Neutrophils 47.7 % (42.0-75.0); Hemoglobin 11.5 g/dL (14.0-18.0); Mean Corpuscular HGB CONC 31.6 g/dL (32.0-36.0); Mean Corpuscular Hemoglobin 25.8 pg (27.0-31.0); Mean Corpuscular Volume 81.7 fL (78.0-98.0); Mean Platelet Volume 9.2 fL (7.4-10.4); Platelet Count 150 thou/uL (130-400); RBC Distribution Width 14.2 % (11.5-14.5); Red Blood Cell (RBC) Count 4.46 mill/uL (4.70-6.10); White Blood Cell (WBC) Count 5.5 thou/uL (4.8-10.8)
[2021-12-24 05:26] LABS: Anion Gap 12 mmol/L (10-20); BUN (Urea Nitrogen) 19 mg/dL (8.4-25.7); Calc. Creatinine Clearance 62 mL/min (70-130); Calcium 8.6 mg/dL (7.8-10.44); Carbon Dioxide 24 mmol/L (23-31); Cardiac Risk 2.9 (Less than 4.5); Chloride 106 mmol/L (98-107); Cholesterol 130 mg/dl (< 200 Desired); Estimated GFR 72; Glucose 111 mg/dL (83-110); HDL Cholesterol 45 mg/dL (>60 Neg Risk); LDL Cholesterol, Calculated 72 mg/dL; Magnesium 1.8 mg/dL (1.6-2.6); Potassium 3.7 mmol/L (3.5-5.1); Sodium 138 mmol/L (136-145); Triglycerides 66 mg/dL (Less than 150)
[2021-12-24 05:27] LABS: ALT (SGPT) 16 U/L (8-55); AST (SGOT) 21 U/L (5-34); Albumin 3.2 g/dL (3.4-4.8); Alkaline Phosphatase 73 U/L (40-110); Bilirubin, Direct 0.1 mg/dL (0.1-0.3); Bilirubin, Total 0.2 mg/dL (0.2-1.2); Protein, Total 6.2 g/dL (5.8-8.1)
[2021-12-24] MEDS ORDERED: Non-Formulary Item 1 EACH (Lisinopril [Lisinopril] 40 MG Tablet) PO SCH (09:00)
[2021-12-24] MEDS: Aspirin Chewable 81 MG TAB PO SCH (09:04)
[2021-12-24] MEDS: Lisinopril 20 MG TAB PO SCH (09:05)
[2021-12-24] MEDS: Carvedilol 3.125 MG TAB PO SCH (16:42)
[2021-12-24] MEDS: Atorvastatin Calcium 40 MG TAB PO SCH (20:03)
[2021-12-25] MEDS: Acetaminophen 325 MG TAB PO PRN ×2 (06:43→10:45)
[2021-12-25] MEDS ORDERED: Cyclobenzaprine 10 MG TAB PO PRN (07:41)
[2021-12-25] MEDS ORDERED: Colchicine 0.6 MG TAB PO SCH (09:00)
[2021-12-25] MEDS: Aspirin Chewable 81 MG TAB PO SCH (09:31)
[2021-12-25] MEDS: Carvedilol 3.125 MG TAB PO SCH ×2 (09:31→17:03)
[2021-12-25] MEDS: Lisinopril 20 MG TAB PO SCH (09:31)
[2021-12-25] MEDS: Colchicine 0.3 MG TAB PO SCH ×2 (09:32→20:24)
[2021-12-25] MEDS ORDERED: Iopamidol 30 ML ONE (11:28)
[2021-12-25] MEDS ORDERED: Guaifenesin DM 100-10/5 ML UDCUP PO PRN (11:44)
[2021-12-25] MEDS ORDERED: fentaNYL Citrate/PF 100 MCG/2 ML SYRINGE ONE (13:02)
[2021-12-25] MEDS ORDERED: Famotidine/PF 20 mg/2ml Vial ONE (13:02)
[2021-12-25] MEDS ORDERED: ePHEDrine 50 MG/ML VIAL ONE (13:09)
[2021-12-25] MEDS ORDERED: Metoclopramide HCl 10 MG/2 ML VIAL ONE (13:09)
[2021-12-25] MEDS ORDERED: Ondansetron PF 4 MG/2 ML Vial ONE (13:09)
[2021-12-25] MEDS ORDERED: Phenylephrine 10 MG/ML VIAL ONE (13:09)
[2021-12-25] MEDS ORDERED: Lidocaine 1% MPF 2 ML VIAL ONE (13:09)
[2021-12-25] MEDS ORDERED: PROPOFOL 200 MG/20 ML VIAL ONE (13:09)
[2021-12-25] MEDS ORDERED: Promethazine HCl 25 MG/ML VIAL IVPB PRN (13:22)
[2021-12-25] MEDS ORDERED: Promethazine HCl 25 MG/ML VIAL IM PRN (13:22)
[2021-12-25] MEDS ORDERED: Ondansetron HCl/PF 4 MG/2 ML Vial IVP PRN (13:22)
[2021-12-25] MEDS ORDERED: Iopamidol 15 ML ONE (13:37)
[2021-12-25] MEDS: Ciprofloxacin 500 MG TAB PO SCH (20:21)
[2021-12-25] MEDS: Atorvastatin Calcium 40 MG TAB PO SCH (20:22)
[2021-12-26] MEDS: Ciprofloxacin 500 MG TAB PO SCH (05:48)
[2021-12-26 08:46] VITALS: TEMP 98
[2021-12-26] MEDS: Lisinopril 20 MG TAB PO SCH (10:32)
[2021-12-26] MEDS: Aspirin Chewable 81 MG TAB PO SCH (10:32)
[2021-12-26] MEDS: Carvedilol 3.125 MG TAB PO SCH (10:33)
[2021-12-26] MEDS: Colchicine 0.3 MG TAB PO SCH (10:33)
[2021-12-26 12:14] VITALS: BP 128/78
== END 2021-12-26 15:20 | disposition home or self-care (01) | DRG 699 ==
LOC: 2SW 18:41 → OBSVTOIN 18:41
PROVIDERS: ADMIT Internal Medicine; ATTEND Internal Medicine
PROC: 0TP98DZ Removal of Intraluminal Device from Ureter, Via Natural or Artificial Opening Endoscopic (ICD-10-PCS; principal; 2021-12-23)
PROC: BT1FZZZ Fluoroscopy of Left Kidney, Ureter and Bladder (ICD-10-PCS; 2021-12-23)
PROC: 0TCB8ZZ Extirpation of Matter from Bladder, Via Natural or Artificial Opening Endoscopic (ICD-10-PCS; 2021-12-23)
DX: T83.89XA Other specified complication of genitourinary prosthetic devices, implants and grafts, initial encounter (principal); I42.8 Other cardiomyopathies; N17.9 Acute kidney failure, unspecified; I50.42 Chronic combined systolic (congestive) and diastolic (congestive) heart failure; N39.0 Urinary tract infection, site not specified; T40.5X1A Poisoning by cocaine, accidental (unintentional), initial encounter; Z20.822 Contact with and (suspected) exposure to COVID-19; I11.0 Hypertensive heart disease with heart failure; F17.210 Nicotine dependence, cigarettes, uncomplicated; E78.5 Hyperlipidemia, unspecified; F14.10 Cocaine abuse, uncomplicated; D64.9 Anemia, unspecified; R07.9 Chest pain, unspecified; R30.0 Dysuria; Y82.8 Other medical devices associated with adverse incidents; Z98.890 Other specified postprocedural states; Z86.16 Personal history of COVID-19
CPT/HCPCS: 36415; 74420; 80048; 80061; 80076; 80306; 83036; 83735; 84439; 84443; 85025; 93005; 93010; 93306; 94760; J0744; J2370; J2405; J2704; J2765; J3490; J7120; Q9967; S0028; U0003; U0005

== ENCOUNTER 2022-03-22 09:36 | Inpatient (IN) | payer MEDICARE, MEDICAID ==
[2022-03-22 10:23] LABS: #Lymphocytes 0.6 thou/uL (1.20-3.40); #Monocytes 0.2 thou/uL (0.11-0.59); #Neutrophils 12.4 thou/uL (1.40-6.50); %Basophils 0.1 % (0.0-1.0); %Eosinophils 0.1 % (0.0-10.0); %Lymphocytes 4.7 % (21.0-51.0); %Monocytes 1.7 % (0.0-10.0); %Neutrophils 93.5 % (42.0-75.0); Hemoglobin 12.9 g/dL (14.0-18.0); Mean Corpuscular HGB CONC 31.5 g/dL (32.0-36.0); Mean Corpuscular Hemoglobin 26.4 pg (27.0-31.0); Mean Corpuscular Volume 83.6 fl (78.0-98.0); Mean Platelet Volume 9.4 fL (7.4-10.4); Platelet Count 137 10x3/uL (130-400); RBC Distribution Width 14.9 % (11.5-14.5); White Blood Cell (WBC) Count 13.2 10x3/uL (4.8-10.8)
[2022-03-22 10:45] LABS: SARS-CoV-2 NAA Rapid Test Not Detected (NotDetected)
[2022-03-22 10:49] LABS: ALT (SGPT) 17 U/L (8-55); AST (SGOT) 22 U/L (5-34); Acetaminophen Less than 10.0 mcg/mL (10.0-30.0); Albumin 3.7 g/dL (3.4-4.8); Alcohol Less than 10 mg/dL (Less than 10); Alkaline Phosphatase 69 U/L (40-110); Anion Gap 12 mmol/L (10-20); BUN (Urea Nitrogen) 14 mg/dL (8.4-25.7); Bilirubin, Total 1.4 mg/dL (0.2-1.2); Calc. Creatinine Clearance 0 mL/min (70-130); Calcium 8.5 mg/dL (7.8-10.44); Carbon Dioxide 24 mmol/L (23-31); Chloride 104 mmol/L (98-107); Estimated GFR 65; Globulin 2.8 g/dL (2.4-3.5); Glucose 86 mg/dL (83-110); Potassium 3.3 mmol/L (3.5-5.1); Protein, Total 6.5 g/dL (5.8-8.1); Salicylate Less than 8.0 mg/dL (15.0-30.0); Sodium 137 mmol/L (136-145)
[2022-03-22] MEDS ORDERED: cefTRIAXone\\ROCEPHIN 2 GM VIAL ONE (10:58)
[2022-03-22] MEDS ORDERED: Azithromycin 500 MG VIAL ONE (10:58)
[2022-03-22] MEDS ORDERED: Aspirin Chewable 81 MG TAB ONE (10:58)
[2022-03-22 11:03] LABS: Amphetamine Not Detected (NotDetected); Barbiturates Screen Not Detected (NotDetected); Benzodiazepine Screen Not Detected (NotDetected); Cocaine Metabolite Screen Detected (NotDetected); Methadone Not Detected (NotDetected); Methamphetamine Not Detected (NotDetected); Opiate Screen Not Detected (NotDetected); Oxycodone Screen Not Detected (NotDetected); Phencyclidine (PCP) Not Detected (NotDetected); THC/Cannabinoid Screen Not Detected (NotDetected); Tricyclic Screen Not Detected (NotDetected)
[2022-03-22 11:05] LABS: CKMB 1.8 ng/mL (0-6.6)
[2022-03-22] MEDS ORDERED: Potassium Chloride 20 MEQ TAB ONE (11:43)
[2022-03-22] MEDS ORDERED: Enoxaparin Sodium 40 MG/0.4 ML SYRINGE SC SCH (12:15)
[2022-03-22 13:39] LABS: Lactic Acid 1.9 mmol/L (0.5-2.2)
[2022-03-22] MEDS ORDERED: Enoxaparin Sodium 40 MG/0.4 ML SYRINGE ONE (14:14)
[2022-03-22] MEDS: Sodium Chloride 0.9% 1,000 ML IV SCH ×2 (14:20→16:30)
[2022-03-22] MEDS ORDERED: Nicotine 14 MG PATCH ONE (14:24)
[2022-03-22] MEDS: Nicotine 14 MG PATCH TD SCH (14:27)
[2022-03-22] MEDS ORDERED: Acetaminophen 325 MG TAB PO SCH (16:15)
[2022-03-22] MEDS ORDERED: Famotidine/PF 20 mg/2ml Vial SLOW IVP SCH (16:30)
[2022-03-22 17:46] LABS: CKMB 1.6 ng/mL (0-6.6)
[2022-03-23 05:03] LABS: Hemoglobin 11.3 g/dL (14.0-18.0); Mean Corpuscular HGB CONC 31.7 g/dL (32.0-36.0); Mean Corpuscular Hemoglobin 26.5 pg (27.0-31.0); Mean Corpuscular Volume 83.7 fl (78.0-98.0); Mean Platelet Volume 10.2 fL (7.4-10.4); Platelet Count 114 10x3/uL (130-400); RBC Distribution Width 15.1 % (11.5-14.5); Red Blood Cell (RBC) Count 4.27 mill/uL (4.70-6.10); White Blood Cell (WBC) Count 18.1 10x3/uL (4.8-10.8)
[2022-03-23 05:19] LABS: Anion Gap 11 mmol/L (10-20); BUN (Urea Nitrogen) 16 mg/dL (8.4-25.7); Calc. Creatinine Clearance 68 mL/min (70-130); Carbon Dioxide 20 mmol/L (23-31); Chloride 110 mmol/L (98-107); Estimated GFR 79; Glucose 97 mg/dL (83-110); Potassium 3.1 mmol/L (3.5-5.1); Sodium 138 mmol/L (136-145)
[2022-03-23 05:56] LABS: Anisocytosis SLIGHT = 6-15 cells (100X) (0-5/hpf); Band 14 % (5-11); Lymphocytes 14 % (21-51); MDiff Complete? YES; Monocytes 1 % (0-10); Neutrophil 71 % (42-75); Platelet Morphology Comment Appears Decreased
[2022-03-23] MEDS ORDERED: Aspirin 81 mg Enteric Coated Tablet PO SCH (09:00)
[2022-03-23] MEDS: Famotidine/PF 20 mg/2ml Vial SLOW IVP SCH (09:55)
[2022-03-23] MEDS ORDERED: cefTRIAXone\\ROCEPHIN 1 GM in Sodium Chloride 0.9% 100 ML IVPB SCH (11:00)
[2022-03-23] MEDS: cefTRIAXone\\ROCEPHIN 2 GM in Sodium Chloride 0.9% 100 ML IVPB SCH (13:00)
[2022-03-23] MEDS: Azithromycin 500 MG in Sodium Chloride 0.9% 250 ML 250 ML IVPB SCH (13:52)
[2022-03-23] MEDS ORDERED: Albuterol Sulfate 2.5 mg/3 ml Neb NEB PRN (14:52)
[2022-03-23] MEDS ORDERED: metroNIDAZOLE 500 MG in Premix Bag 1 BAG IVPB SCH (15:00)
[2022-03-23] MEDS ORDERED: Lisinopril 20 MG TAB PO STA (16:01)
[2022-03-23] MEDS ORDERED: Iopamidol-370 76% 500 ML 1 ML ONE (16:07)
[2022-03-23] MEDS: Sodium Chloride 0.9% 1,000 ML IV SCH (16:08)
[2022-03-23] MEDS ORDERED: hydrALAZINE 20 MG/ML VIAL SLOW IVP SCH ×2 (16:15→17:15)
[2022-03-23] MEDS ORDERED: Amlodipine 5 MG TAB PO SCH (16:15)
[2022-03-23] MEDS ORDERED: Carvedilol 3.125 MG TAB PO SCH (17:00)
[2022-03-23] MEDS ORDERED: hydrALAZINE 20 MG/ML VIAL SLOW IVP PRN (17:07)
[2022-03-23] MEDS ORDERED: hydrALAZINE 20 MG/ML VIAL ONE (17:09)
[2022-03-23] MEDS ORDERED: LORazepam 2 MG/ML SYR.(CARPUJECT) IVP STA (17:13)
[2022-03-23] MEDS ORDERED: cloNIDine 0.1 MG TAB PO PRN (17:15)
[2022-03-23] MEDS ORDERED: Lorazepam 2 MG/ML VIAL SLOW IVP SCH (17:30)
[2022-03-23] MEDS: Nicotine 14 MG PATCH TD SCH (17:36)
[2022-03-23] MEDS ORDERED: niCARdipine 25 MG in Sodium Chloride 0.9% 250 ML 250 ML IVPB SCH (17:45)
[2022-03-23] MEDS: metroNIDAZOLE 500 MG in Premix Bag 1 BAG IVPB SCH (22:10)
[2022-03-23] MEDS: Atorvastatin Calcium 40 MG TAB PO SCH (22:10)
[2022-03-23] MEDS: Acetaminophen 325 MG TAB PO PRN (22:41)
[2022-03-24 04:43] LABS: #Basophils 0.1 thou/uL (0.0-0.2); #Eosinphils 0.1 thou/uL (0.0-0.7); #Lymphocytes 1.9 thou/uL (1.20-3.40); #Monocytes 1.1 thou/uL (0.11-0.59); #Neutrophils 7.8 thou/uL (1.40-6.50); %Basophils 0.5 % (0.0-1.0); %Eosinophils 0.7 % (0.0-10.0); %Lymphocytes 17.5 % (21.0-51.0); %Neutrophils 71.4 % (42.0-75.0); Hemoglobin 12.7 g/dL (14.0-18.0); Mean Corpuscular HGB CONC 32.8 g/dL (32.0-36.0); Mean Corpuscular Hemoglobin 27.1 pg (27.0-31.0); Mean Corpuscular Volume 82.6 fl (78.0-98.0); Mean Platelet Volume 10.1 fL (7.4-10.4); Platelet Count 117 10x3/uL (130-400); RBC Distribution Width 15.1 % (11.5-14.5); Red Blood Cell (RBC) Count 4.68 mill/uL (4.70-6.10); White Blood Cell (WBC) Count 10.9 10x3/uL (4.8-10.8)
[2022-03-24 04:52] LABS: Phosphorus 2.5 mg/dL (2.3-4.7)
[2022-03-24 04:54] LABS: ALT (SGPT) 16 U/L (8-55); AST (SGOT) 24 U/L (5-34); Alkaline Phosphatase 59 U/L (40-110); Anion Gap 11 mmol/L (10-20); BUN (Urea Nitrogen) 14 mg/dL (8.4-25.7); Bilirubin, Total 0.5 mg/dL (0.2-1.2); Calc. Creatinine Clearance 65 mL/min (70-130); Calcium 8.1 mg/dL (7.8-10.44); Carbon Dioxide 23 mmol/L (23-31); Chloride 104 mmol/L (98-107); Estimated GFR 74; Glucose 88 mg/dL (83-110); Magnesium 1.7 mg/dL (1.6-2.6); Sodium 135 mmol/L (136-145)
[2022-03-24] MEDS: metroNIDAZOLE 500 MG in Premix Bag 1 BAG IVPB SCH ×3 (05:34→21:27)
[2022-03-24] MEDS ORDERED: Electrolyte Replacement Protocol 1 EACH FS ONE (07:33)
[2022-03-24] MEDS ORDERED: Electrolyte Replacement Protocol FS PRN (08:00)
[2022-03-24] MEDS ORDERED: Potassium Chloride 20 MEQ TAB PO SCH (08:00)
[2022-03-24] MEDS ORDERED: Magnesium 2 GM/50 ML(in water) 2 GM in Premix Bag 1 BAG IVPB SCH (09:00)
[2022-03-24] MEDS: Acetaminophen 325 MG TAB PO PRN ×2 (09:47→21:26)
[2022-03-24] MEDS: Lisinopril 20 MG TAB PO SCH (09:47)
[2022-03-24] MEDS: Aspirin Chewable 81 MG TAB PO SCH (09:47)
[2022-03-24] MEDS: Famotidine/PF 20 mg/2ml Vial SLOW IVP SCH ×2 (09:47→21:27)
[2022-03-24] MEDS: Azithromycin 500 MG in Sodium Chloride 0.9% 250 ML 250 ML IVPB SCH (11:51)
[2022-03-24 13:06] LABS: Potassium 3.6 mmol/L (3.5-5.1)
[2022-03-24] MEDS ORDERED: NIFEdipine XL 60 MG TAB PO SCH (14:00)
[2022-03-24] MEDS: cefTRIAXone\\ROCEPHIN 2 GM in Sodium Chloride 0.9% 100 ML IVPB SCH (14:38)
[2022-03-24] MEDS: NIFEdipine XL 60 MG TAB PO SCH (17:53)
[2022-03-24] MEDS: Nicotine 14 MG PATCH TD SCH (17:54)
[2022-03-24] MEDS: Atorvastatin Calcium 40 MG TAB PO SCH (21:27)
[2022-03-25] MEDS: metroNIDAZOLE 500 MG in Premix Bag 1 BAG IVPB SCH ×2 (05:15→14:19)
[2022-03-25] MEDS: Acetaminophen 325 MG TAB PO PRN (05:15)
[2022-03-25 05:31] LABS: #Eosinphils 0.1 thou/uL (0.0-0.7); #Lymphocytes 1.6 thou/uL (1.20-3.40); #Monocytes 0.9 thou/uL (0.11-0.59); #Neutrophils 3.8 thou/uL (1.40-6.50); %Basophils 0.4 % (0.0-1.0); %Eosinophils 1.9 % (0.0-10.0); %Lymphocytes 24.5 % (21.0-51.0); %Neutrophils 59.2 % (42.0-75.0); Hemoglobin 11.8 g/dL (14.0-18.0); Mean Corpuscular HGB CONC 32.5 g/dL (32.0-36.0); Mean Corpuscular Volume 83.2 fl (78.0-98.0); Mean Platelet Volume 9.1 fL (7.4-10.4); Platelet Count 129 10x3/uL (130-400); RBC Distribution Width 14.8 % (11.5-14.5); Red Blood Cell (RBC) Count 4.35 mill/uL (4.70-6.10); White Blood Cell (WBC) Count 6.4 10x3/uL (4.8-10.8)
[2022-03-25 05:48] LABS: ALT (SGPT) 17 U/L (8-55); AST (SGOT) 34 U/L (5-34); Albumin 2.9 g/dL (3.4-4.8); Alkaline Phosphatase 49 U/L (40-110); Anion Gap 11 mmol/L (10-20); BUN (Urea Nitrogen) 17 mg/dL (8.4-25.7); Bilirubin, Total 0.3 mg/dL (0.2-1.2); Calc. Creatinine Clearance 67 mL/min (70-130); Calcium 7.9 mg/dL (7.8-10.44); Carbon Dioxide 21 mmol/L (23-31); Chloride 104 mmol/L (98-107); Estimated GFR 77; Globulin 2.8 g/dL (2.4-3.5); Glucose 93 mg/dL (83-110); Potassium 3.1 mmol/L (3.5-5.1); Protein, Total 5.7 g/dL (5.8-8.1); Sodium 133 mmol/L (136-145)
[2022-03-25] MEDS ORDERED: Magnesium 2 GM/50 ML(in water) 2 GM in Premix Bag 1 BAG IVPB SCH (08:00)
[2022-03-25] MEDS ORDERED: Potassium Chloride 20 MEQ TAB PO SCH (08:00)
[2022-03-25] MEDS: Famotidine/PF 20 mg/2ml Vial SLOW IVP SCH ×2 (11:00→11:09)
[2022-03-25] MEDS: Aspirin Chewable 81 MG TAB PO SCH (11:07)
[2022-03-25] MEDS: Lisinopril 20 MG TAB PO SCH (11:08)
[2022-03-25 13:21] VITALS: BMI 23.2
[2022-03-25] MEDS: Nicotine 14 MG PATCH TD SCH (14:19)
[2022-03-25] MEDS: cefTRIAXone\\ROCEPHIN 2 GM in Sodium Chloride 0.9% 100 ML IVPB SCH (14:21)
[2022-03-25] MEDS: Carvedilol 3.125 MG TAB PO SCH (17:55)
[2022-03-25] MEDS: NIFEdipine XL 60 MG TAB PO SCH (17:56)
[2022-03-25] MEDS: Guaifenesin DM 100-10/5 ML UDCUP PO PRN (17:56)
[2022-03-25] MEDS ORDERED: Nicotine 14 MG PATCH TD PRN (20:42)
[2022-03-25] MEDS: Atorvastatin Calcium 40 MG TAB PO SCH (20:51)
[2022-03-25] MEDS: Famotidine 20 MG TAB PO SCH (20:51)
[2022-03-25] MEDS: Senokot S 8.6-50 MG TAB PO SCH (20:51)
[2022-03-25] MEDS: guaiFENesin ER 600 MG TAB PO SCH (20:51)
[2022-03-25] MEDS: Polyethylene Glycol 3350 17 GM Packet PO SCH (20:52)
[2022-03-26] MEDS: Guaifenesin DM 100-10/5 ML UDCUP PO PRN (00:19)
[2022-03-26 03:44] LABS: Bacteria/HPF None Seen HPF (None Seen); Bilirubin Negative (Negative); Blood, Urine Negative (Negative); Clarity Clear (Clear); Glucose, Urine (Dipstick) Normal (Negative); Ketone, Urine Negative (Negative); Leukocyte 25 Leu/uL (Negative); Nitrite Negative (Negative); Protein, Urine (Dipstick) Negative (Neg-Trace); RBC/HPF 0-3 HPF (0-3); Specific Gravity, Urine 1.028 (1.002-1.036); Squamous Epithelial 0-3 HPF (0-3); Urobilinogen Normal mg/dL (Less than 2); pH, Urine 5.5 (5.0-9.0)
[2022-03-26 05:00] LABS: #Eosinphils 0.1 thou/uL (0.0-0.7); #Lymphocytes 1.7 thou/uL (1.20-3.40); #Monocytes 0.7 thou/uL (0.11-0.59); #Neutrophils 3.6 thou/uL (1.40-6.50); %Basophils 0.3 % (0.0-1.0); %Eosinophils 2.4 % (0.0-10.0); %Lymphocytes 27.5 % (21.0-51.0); %Monocytes 11.9 % (0.0-10.0); %Neutrophils 57.9 % (42.0-75.0); Hemoglobin 12.3 g/dL (14.0-18.0); Mean Corpuscular HGB CONC 32.5 g/dL (32.0-36.0); Mean Corpuscular Hemoglobin 26.9 pg (27.0-31.0); Mean Corpuscular Volume 82.8 fl (78.0-98.0); Mean Platelet Volume 9.1 fL (7.4-10.4); Platelet Count 155 10x3/uL (130-400); RBC Distribution Width 14.9 % (11.5-14.5); Red Blood Cell (RBC) Count 4.57 mill/uL (4.70-6.10); White Blood Cell (WBC) Count 6.1 10x3/uL (4.8-10.8)
[2022-03-26 05:20] LABS: Anion Gap 9 mmol/L (10-20); BUN (Urea Nitrogen) 12 mg/dL (8.4-25.7); Calc. Creatinine Clearance 79 mL/min (70-130); Calcium 8.2 mg/dL (7.8-10.44); Carbon Dioxide 22 mmol/L (23-31); Chloride 103 mmol/L (98-107); Estimated GFR 91; Glucose 101 mg/dL (83-110); Potassium 3.4 mmol/L (3.5-5.1); Sodium 131 mmol/L (136-145)
[2022-03-26] MEDS ORDERED: Magnesium 2 GM/50 ML(in water) 2 GM in Premix Bag 1 BAG IVPB SCH (08:00)
[2022-03-26] MEDS ORDERED: Potassium Chloride 20 MEQ TAB PO SCH (08:00)
[2022-03-26] MEDS: Lisinopril 20 MG TAB PO SCH (11:01)
[2022-03-26] MEDS: Senokot S 8.6-50 MG TAB PO SCH ×2 (11:01→20:50)
[2022-03-26] MEDS: Carvedilol 3.125 MG TAB PO SCH ×2 (11:02→18:54)
[2022-03-26] MEDS: Famotidine 20 MG TAB PO SCH ×2 (11:02→20:50)
[2022-03-26] MEDS: Aspirin Chewable 81 MG TAB PO SCH (11:02)
[2022-03-26] MEDS: guaiFENesin ER 600 MG TAB PO SCH ×2 (11:02→20:50)
[2022-03-26] MEDS: cefTRIAXone\\ROCEPHIN 2 GM in Sodium Chloride 0.9% 100 ML IVPB SCH (14:04)
[2022-03-26] MEDS: Polyethylene Glycol 3350 17 GM Packet PO SCH (20:50)
[2022-03-26] MEDS: Atorvastatin Calcium 40 MG TAB PO SCH (20:50)
[2022-03-26] MEDS: Acetaminophen 325 MG TAB PO PRN (20:51)
[2022-03-26 22:31] LABS: Potassium 4.2 mmol/L (3.5-5.1)
[2022-03-27] MEDS ORDERED: Magnesium 2 GM/50 ML(in water) 2 GM in Premix Bag 1 BAG IVPB SCH (08:00)
[2022-03-27] MEDS: Aspirin Chewable 81 MG TAB PO SCH (10:25)
[2022-03-27] MEDS: Lisinopril 20 MG TAB PO SCH (10:25)
[2022-03-27] MEDS: guaiFENesin ER 600 MG TAB PO SCH (10:26)
[2022-03-27] MEDS: Senokot S 8.6-50 MG TAB PO SCH (10:26)
[2022-03-27] MEDS: Carvedilol 3.125 MG TAB PO SCH (10:27)
[2022-03-27] MEDS: Famotidine 20 MG TAB PO SCH (10:27)
[2022-03-27 13:37] VITALS: BP 149/88; TEMP 98.3
[2022-03-27] MEDS: cefTRIAXone\\ROCEPHIN 2 GM in Sodium Chloride 0.9% 100 ML IVPB SCH (14:39)
== END 2022-03-27 17:00 | disposition home or self-care (01) | DRG 872 ==
LOC: ERS 09:36 → ERHOLD 12:53 → 2NO 15:34 → OBSVTOIN 03-23 14:28
PROVIDERS: ADMIT Internal Medicine; ATTEND Internal Medicine
DX: A41.51 Sepsis due to Escherichia coli [E. coli] (principal); R45.851 Suicidal ideations; E87.1 Hypo-osmolality and hyponatremia; I47.29 Other ventricular tachycardia; I50.42 Chronic combined systolic (congestive) and diastolic (congestive) heart failure; I42.8 Other cardiomyopathies; I11.0 Hypertensive heart disease with heart failure; R65.20 Severe sepsis without septic shock; J20.8 Acute bronchitis due to other specified organisms; N20.0 Calculus of kidney; F17.210 Nicotine dependence, cigarettes, uncomplicated; E78.5 Hyperlipidemia, unspecified; Z96.0 Presence of urogenital implants; I16.0 Hypertensive urgency; N32.89 Other specified disorders of bladder; K59.00 Constipation, unspecified; E83.42 Hypomagnesemia; E87.6 Hypokalemia; I25.10 Atherosclerotic heart disease of native coronary artery without angina pectoris; E78.00 Pure hypercholesterolemia, unspecified; K21.9 Gastro-esophageal reflux disease without esophagitis; Z95.820 Peripheral vascular angioplasty status with implants and grafts; Z59.00 Homelessness unspecified; Z79.899 Other long term (current) drug therapy; Z98.890 Other specified postprocedural states; Z86.16 Personal history of COVID-19; Z87.11 Personal history of peptic ulcer disease; Z79.82 Long term (current) use of aspirin; Z20.822 Contact with and (suspected) exposure to COVID-19
CPT/HCPCS: 36415; 70450; 71045; 74177; 80048; 80053; 80306; 80307; 81001; 82553; 83605; 83735; 83880; 84100; 84484; 85025; 87040; 87077; 87149; 87186; 87804; 93005; 94640; 94760; 96365; 96367; 96372; 96375; 96376; G0378; J0360; J0456; J0696; J1650; J2060; J3475; J3490; J7050; J7620; Q9967; S0028; U0002

== ENCOUNTER 2022-05-07 13:38 | Emergency (ER) | payer MEDICARE, MEDICAID ==
[2022-05-07 14:59] LABS: Bilirubin Negative (Negative); Blood, Urine 3+ (Negative); Clarity Clear (Clear); Glucose, Urine (Dipstick) Normal (Negative); Ketone, Urine Negative (Negative); Leukocyte 25 Leu/uL (Negative); Nitrite Negative (Negative); Protein, Urine (Dipstick) 50 mg/dL (Neg-Trace); RBC/HPF Greater than 50 HPF (0-3); Specific Gravity, Urine 1.014 (1.002-1.036); Squamous Epithelial 0-3 HPF (0-3); Urobilinogen Normal mg/dL (Less than 2)
[2022-05-07 15:00] LABS: Bacteria/HPF 1+ HPF (None Seen)
[2022-05-07] MEDS ORDERED: Cefepime 2 GM VIAL ONE (15:30)
[2022-05-07 15:33] LABS: #Lymphocytes 0.9 thou/uL (1.20-3.40); #Monocytes 0.9 thou/uL (0.11-0.59); #Neutrophils 8.6 thou/uL (1.40-6.50); %Basophils 0.2 % (0.0-1.0); %Eosinophils 0.1 % (0.0-10.0); %Lymphocytes 8.8 % (21.0-51.0); %Monocytes 8.7 % (0.0-10.0); %Neutrophils 82.2 % (42.0-75.0); Hemoglobin 12.2 g/dL (14.0-18.0); Mean Corpuscular HGB CONC 33.5 g/dL (32.0-36.0); Mean Corpuscular Hemoglobin 27.8 pg (27.0-31.0); Mean Platelet Volume 8.5 fL (7.4-10.4); Platelet Count 165 10x3/uL (130-400); RBC Distribution Width 13.3 % (11.5-14.5); Red Blood Cell (RBC) Count 4.39 mill/uL (4.70-6.10); White Blood Cell (WBC) Count 10.4 10x3/uL (4.8-10.8)
[2022-05-07 15:55] LABS: ALT (SGPT) 18 U/L (8-55); AST (SGOT) 25 U/L (5-34); Albumin 3.2 g/dL (3.4-4.8); Alkaline Phosphatase 68 U/L (40-110); Anion Gap 12 mmol/L (10-20); BUN (Urea Nitrogen) 19 mg/dL (8.4-25.7); Bilirubin, Total 0.5 mg/dL (0.2-1.2); CK (CPK) 91 U/L (30-200); Calc. Creatinine Clearance 0 mL/min (70-130); Calcium 8.6 mg/dL (7.8-10.44); Carbon Dioxide 21 mmol/L (23-31); Chloride 105 mmol/L (98-107); Estimated GFR 70; Globulin 3.4 g/dL (2.4-3.5); Glucose 99 mg/dL (83-110); Potassium 4.1 mmol/L (3.5-5.1); Protein, Total 6.6 g/dL (5.8-8.1); Sodium 134 mmol/L (136-145)
[2022-05-07] MEDS ORDERED: Vancomycin 1.5 GRAM/300 ML BAG 1.5 GM in Premix Bag 1 BAG IVPB SCH (16:00)
[2022-05-07 17:42] LABS: SARS-CoV-2 NAA Rapid Test Not Detected (NotDetected)
== END 2022-05-07 18:38 | disposition home or self-care (01) ==
LOC: ERS 13:38
DX: J18.9 Pneumonia, unspecified organism (principal); J44.9 Chronic obstructive pulmonary disease, unspecified; I10 Essential (primary) hypertension; F17.210 Nicotine dependence, cigarettes, uncomplicated; Z79.899 Other long term (current) drug therapy; Z20.822 Contact with and (suspected) exposure to COVID-19
CPT/HCPCS: 0240U; 71045; 80053; 82550; 83605; 85025; 87040; 87086; 96365; 96366; 96367; 99285; J3370; 36415; 81003; 81015; 87077; J0692

== ENCOUNTER 2023-04-02 15:33 | Inpatient (IN) | payer MEDICARE ==
[~2023-04-02 15:33] MED LIST: Iopamidol-370 76% 500 ML MDV (1 ML CHARGE) ONE
[2023-04-02] MEDS ORDERED: Albuterol 2.5 MG (0.5 mL) NEB ONE (16:21)
[2023-04-02] MEDS ORDERED: Ipratropium Bromide 2.5 ml Neb ONE (16:21)
[2023-04-02] MEDS ORDERED: cefTRIAXone (ROCEPHIN) 1 GM VIAL ONE (16:25)
[2023-04-02] MEDS ORDERED: Azithromycin 500 MG VIAL ONE (16:25)
[2023-04-02] MEDS ORDERED: Sodium Chloride 0.9% 100 ML ONE (16:25)
[2023-04-02] MEDS ORDERED: predniSONE 20 MG TAB ONE (16:25)
[2023-04-02 16:26] LABS: #Basophils 0.1 thou/uL (0.0-0.2); #Eosinphils 0.2 thou/uL (0.0-0.7); #Monocytes 0.7 thou/uL (0.11-0.59); #Neutrophils 4.8 thou/uL (1.40-6.50); %Basophils 0.8 % (0.0-1.0); %Eosinophils 2.5 % (0.0-10.0); %Lymphocytes 27.4 % (21.0-51.0); %Monocytes 8.8 % (0.0-10.0); %Neutrophils 60.4 % (42.0-75.0); Hematocrit 41.6 % (42.0-52.0); Hemoglobin 13.3 g/dL (14.0-18.0); Mean Corpuscular Hemoglobin 25.7 pg (27.0-31.0); Mean Corpuscular Volume 80.5 fl (78.0-98.0); Mean Platelet Volume 9.6 fL (7.4-10.4); Platelet Count 187 10x3/uL (130-400); RBC Distribution Width 14.1 % (11.5-14.5); Red Blood Cell (RBC) Count 5.17 mill/uL (4.70-6.10)
[2023-04-02 16:55] LABS: ALT (SGPT) 10 U/L (8-55); AST (SGOT) 18 U/L (5-34); Albumin 3.9 g/dL (3.4-4.8); Alkaline Phosphatase 67 U/L (40-110); Anion Gap 15 mmol/L (10-20); BUN (Urea Nitrogen) 11 mg/dL (8.4-25.7); Bilirubin, Total 1.2 mg/dL (0.2-1.2); Calc. Creatinine Clearance 0 mL/min (70-130); Calcium 8.8 mg/dL (7.8-10.44); Carbon Dioxide 24 mmol/L (23-31); Chloride 98 mmol/L (98-107); Estimated GFR 52; Globulin 3.5 g/dL (2.4-3.5); Glucose 107 mg/dL (83-110); Lipase 27 U/L (8-78); Potassium 3.5 mmol/L (3.5-5.1); Protein, Total 7.4 g/dL (5.8-8.1); Sodium 133 mmol/L (136-145)
[2023-04-02 16:59] LABS: Troponin I Less than 0.010 ng/mL (< 0.028)
[2023-04-02] MEDS ORDERED: Ondansetron PF 4 MG/2 ML Vial ONE (17:28)
[2023-04-02 19:16] LABS: Bacteria/HPF None Seen HPF (None Seen); Bilirubin Negative (Negative); Blood, Urine Negative (Negative); CAUTI Indications for Culture Fever or rigors; Clarity Clear (Clear); Glucose, Urine (Dipstick) Normal (Negative); Ketone, Urine Trace mg/dL (Negative); Leukocyte Negative Leu/uL (Negative); Nitrite Negative (Negative); Protein, Urine (Dipstick) Negative (Neg-Trace); RBC/HPF None Seen HPF (0-3); Specific Gravity, Urine 1.017 (1.002-1.036); Squamous Epithelial 0-3 HPF (0-3); WBC/HPF 0-3 HPF (0-3); pH, Urine 7.5 (5.0-9.0)
[2023-04-02 19:25] LABS: Amphetamine Not Detected (NotDetected); Barbiturates Screen Not Detected (NotDetected); Benzodiazepine Screen Not Detected (NotDetected); Cocaine Metabolite Screen Detected (NotDetected); Methadone Not Detected (NotDetected); Methamphetamine Detected (NotDetected); Opiate Screen Not Detected (NotDetected); Oxycodone Screen Not Detected (NotDetected); Phencyclidine (PCP) Not Detected (NotDetected); THC/Cannabinoid Screen Not Detected (NotDetected); Tricyclic Screen Not Detected (NotDetected)
[2023-04-02] MEDS ORDERED: Ipratropium/Albuterol 3 ML NEB ONE (19:25)
[2023-04-02 19:34] LABS: Urine Culture Reflex No No
[2023-04-02] MEDS ORDERED: Acetaminophen 325 MG TAB PO PRN (20:39)
[2023-04-02] MEDS ORDERED: Senokot S 8.6-50 MG TAB PO PRN (20:39)
[2023-04-02] MEDS ORDERED: Ondansetron ODT 4 MG TAB PO PRN (21:13)
[2023-04-02] MEDS ORDERED: Lorazepam 2 MG/ML VIAL IM PRN (21:13)
[2023-04-02] MEDS ORDERED: Lorazepam 1 MG TAB PO PRN (21:13)
[2023-04-02] MEDS ORDERED: Electrolyte Replacement Protocol 1 EACH FS SCH (21:15)
[2023-04-02] MEDS ORDERED: Nitroglycerin 0.4 MG TAB (25 Tab Bottle) SL PRN (21:37)
[2023-04-02 21:38] LABS: Troponin I Less than 0.010 ng/mL (< 0.028)
[2023-04-02] MEDS ORDERED: Folic Acid 1 MG TAB PO SCH (22:00)
[2023-04-02] MEDS ORDERED: Multivit, Therapeutic 1 TAB PO SCH (22:00)
[2023-04-02 23:48] LABS: Bilirubin, Direct 0.5 mg/dL (0.1-0.3); Magnesium 1.6 mg/dL (1.6-2.6); Phosphorus 2.2 mg/dL (2.3-4.7)
[2023-04-03 00:08] LABS: Troponin I Less than 0.010 ng/mL (< 0.028)
[2023-04-03] MEDS ORDERED: Magnesium 2 GM/50 ML(in water) 2 GM in Premix 1 BAG IVPB SCH (01:00)
[2023-04-03] MEDS: Lorazepam 1 MG TAB PO SCH ×5 (01:16→21:33)
[2023-04-03] MEDS ORDERED: Ondansetron PF 4 MG/2 ML Vial ONE (01:47)
[2023-04-03] MEDS ORDERED: Thiamine HCl 200 MG/2 ML VIAL ONE (01:47)
[2023-04-03] MEDS ORDERED: LORazepam 2 MG/ML SYR.(CARPUJECT) ONE (01:48)
[2023-04-03] MEDS ORDERED: Magnesium 2 GM/50 ML BAG (IN WATER) ONE (01:49)
[2023-04-03] MEDS: Ondansetron PF 4 MG/2 ML Vial IVP PRN ×2 (01:53→16:30)
[2023-04-03] MEDS: Thiamine HCl 200 MG/2 ML VIAL SLOW IVP SCH ×2 (01:55→21:33)
[2023-04-03] MEDS: Ipratropium/Albuterol 3 ML NEB NEB SCH ×4 (03:02→19:27)
[2023-04-03 03:55] LABS: #Monocytes 0.2 thou/uL (0.11-0.59); #Neutrophils 5.5 thou/uL (1.40-6.50); %Basophils 0.2 % (0.0-1.0); %Lymphocytes 12.4 % (21.0-51.0); %Monocytes 3.1 % (0.0-10.0); Hematocrit 40.3 % (42.0-52.0); Hemoglobin 12.9 g/dL (14.0-18.0); Mean Corpuscular Hemoglobin 25.7 pg (27.0-31.0); Mean Corpuscular Volume 80.3 fl (78.0-98.0); Mean Platelet Volume 10.5 fL (7.4-10.4); Platelet Count 195 10x3/uL (130-400); RBC Distribution Width 14.2 % (11.5-14.5); Red Blood Cell (RBC) Count 5.02 mill/uL (4.70-6.10); White Blood Cell (WBC) Count 6.5 10x3/uL (4.8-10.8)
[2023-04-03 04:20] LABS: ALT (SGPT) 10 U/L (8-55); AST (SGOT) 14 U/L (5-34); Albumin 3.6 g/dL (3.4-4.8); Alkaline Phosphatase 62 U/L (40-110); Anion Gap 13 mmol/L (10-20); BUN (Urea Nitrogen) 13 mg/dL (8.4-25.7); Bilirubin, Total 0.7 mg/dL (0.2-1.2); Calc. Creatinine Clearance 0 mL/min (70-130); Calcium 8.8 mg/dL (7.8-10.44); Carbon Dioxide 24 mmol/L (23-31); Chloride 99 mmol/L (98-107); Estimated GFR 67; Globulin 3.6 g/dL (2.4-3.5); Glucose 139 mg/dL (83-110); Potassium 3.3 mmol/L (3.5-5.1); Protein, Total 7.2 g/dL (5.8-8.1); Sodium 133 mmol/L (136-145)
[2023-04-03] MEDS ORDERED: Ipratropium/Albuterol 3 ML NEB ONE (07:28)
[2023-04-03] MEDS ORDERED: Potassium Chloride 20 MEQ TAB PO SCH (08:00)
[2023-04-03] MEDS ORDERED: PHOS-NAK 1 PKT PACK PO SCH (08:00)
[2023-04-03] MEDS ORDERED: Amlodipine 10 MG TAB PO SCH (09:00)
[2023-04-03] MEDS ORDERED: Amlodipine 5 MG TAB ONE (10:40)
[2023-04-03] MEDS ORDERED: methylPREDNISolone Sod Succ 40 MG VIAL ONE (10:40)
[2023-04-03] MEDS ORDERED: Enoxaparin 40 MG (0.4 mL) SYRINGE ONE (10:40)
[2023-04-03] MEDS ORDERED: Lorazepam 1 MG TAB ONE (10:40)
[2023-04-03] MEDS ORDERED: Potassium Chloride 20 MEQ TAB ONE (10:40)
[2023-04-03] MEDS: Enoxaparin 40 MG (0.4 mL) SYRINGE SC SCH (10:44)
[2023-04-03] MEDS: methylPREDNISolone Sod Succ 40 MG VIAL IVP SCH (10:44)
[2023-04-03] MEDS ORDERED: Folic Acid 1 MG TAB ONE (10:47)
[2023-04-03] MEDS ORDERED: Multivit, Therapeutic 1 TAB ONE (10:47)
[2023-04-03] MEDS: Multivit, Therapeutic 1 TAB PO SCH (10:50)
[2023-04-03] MEDS: Folic Acid 1 MG TAB PO SCH (10:51)
[2023-04-03 12:59] VITALS: BMI 24.6
[2023-04-03] MEDS: Azithromycin 500 MG in Sodium Chloride 0.9% 250 ML 250 ML IVPB SCH (17:30)
[2023-04-03] MEDS ORDERED: Lorazepam 1 MG TAB PO PRN (21:14)
[2023-04-03] MEDS: cefTRIAXone\\ROCEPHIN 1 GM in Sodium Chloride 0.9% 100 ML IVPB SCH (21:33)
[2023-04-04] MEDS: Ipratropium/Albuterol 3 ML NEB NEB SCH ×4 (00:59→19:02)
[2023-04-04] MEDS: Ondansetron PF 4 MG/2 ML Vial IVP PRN (02:50)
[2023-04-04 04:42] LABS: #Monocytes 0.6 thou/uL (0.11-0.59); #Neutrophils 8.2 thou/uL (1.40-6.50); %Basophils 0.2 % (0.0-1.0); %Eosinophils 0.1 % (0.0-10.0); %Monocytes 5.7 % (0.0-10.0); %Neutrophils 76.8 % (42.0-75.0); Hematocrit 40.3 % (42.0-52.0); Mean Corpuscular HGB CONC 32.3 g/dL (32.0-36.0); Mean Corpuscular Hemoglobin 25.6 pg (27.0-31.0); Mean Corpuscular Volume 79.3 fl (78.0-98.0); Mean Platelet Volume 10.9 fL (7.4-10.4); Platelet Count 193 10x3/uL (130-400); RBC Distribution Width 14.2 % (11.5-14.5); Red Blood Cell (RBC) Count 5.08 mill/uL (4.70-6.10); White Blood Cell (WBC) Count 10.7 10x3/uL (4.8-10.8)
[2023-04-04] MEDS: Lorazepam 1 MG TAB PO SCH ×3 (06:07→18:32)
[2023-04-04] MEDS: Amlodipine 10 MG TAB PO SCH (08:58)
[2023-04-04] MEDS: Enoxaparin 40 MG (0.4 mL) SYRINGE SC SCH (08:58)
[2023-04-04] MEDS: Folic Acid 1 MG TAB PO SCH (08:58)
[2023-04-04] MEDS: Multivit, Therapeutic 1 TAB PO SCH (08:58)
[2023-04-04] MEDS: Carvedilol 3.125 MG TAB PO SCH ×2 (08:58→18:40)
[2023-04-04] MEDS: methylPREDNISolone Sod Succ 40 MG VIAL IVP SCH (08:59)
[2023-04-04 09:03] LABS: Anion Gap 13 mmol/L (10-20); BUN (Urea Nitrogen) 15 mg/dL (8.4-25.7); Calc. Creatinine Clearance 60 mL/min (70-130); Calcium 8.7 mg/dL (7.8-10.44); Carbon Dioxide 26 mmol/L (23-31); Chloride 101 mmol/L (98-107); Estimated GFR 63; Glucose 102 mg/dL (83-110); Magnesium 1.9 mg/dL (1.6-2.6); Phosphorus 2.4 mg/dL (2.3-4.7); Potassium 3.3 mmol/L (3.5-5.1); Sodium 137 mmol/L (136-145)
[2023-04-04] MEDS ORDERED: Potassium Chloride 20 MEQ TAB PO SCH ×2 (10:00→18:45)
[2023-04-04] MEDS ORDERED: Magnesium 2 GM/50 ML(in water) 2 GM in Premix 1 BAG IVPB SCH ×2 (10:00→18:45)
[2023-04-04] MEDS: Azithromycin 500 MG in Sodium Chloride 0.9% 250 ML 250 ML IVPB SCH (18:41)
[2023-04-04] MEDS: Thiamine HCl 200 MG/2 ML VIAL SLOW IVP SCH (20:37)
[2023-04-04] MEDS: cefTRIAXone\\ROCEPHIN 1 GM in Sodium Chloride 0.9% 100 ML IVPB SCH (20:37)
[2023-04-04] MEDS: Lorazepam 0.5 MG TAB PO SCH (20:38)
[2023-04-04] MEDS ORDERED: Lorazepam 1 MG TAB PO PRN (21:14)
[2023-04-05] MEDS: Ipratropium/Albuterol 3 ML NEB NEB SCH ×5 (01:50→23:10)
[2023-04-05] MEDS: Lorazepam 0.5 MG TAB PO SCH ×3 (03:39→16:26)
[2023-04-05 06:29] LABS: #Monocytes 0.9 thou/uL (0.11-0.59); #Neutrophils 10.6 thou/uL (1.40-6.50); %Basophils 0.1 % (0.0-1.0); %Eosinophils 0.1 % (0.0-10.0); %Lymphocytes 16.7 % (21.0-51.0); %Monocytes 6.7 % (0.0-10.0); Hematocrit 40.5 % (42.0-52.0); Mean Corpuscular HGB CONC 32.1 g/dL (32.0-36.0); Mean Corpuscular Hemoglobin 25.6 pg (27.0-31.0); Mean Corpuscular Volume 79.9 fl (78.0-98.0); Mean Platelet Volume 11.3 fL (7.4-10.4); Platelet Count 170 10x3/uL (130-400); RBC Distribution Width 14.5 % (11.5-14.5); Red Blood Cell (RBC) Count 5.07 mill/uL (4.70-6.10)
[2023-04-05 07:38] LABS: Anion Gap 11 mmol/L (10-20); BUN (Urea Nitrogen) 25 mg/dL (8.4-25.7); Calc. Creatinine Clearance 46 mL/min (70-130); Carbon Dioxide 24 mmol/L (23-31); Chloride 102 mmol/L (98-107); Estimated GFR 47; Glucose 118 mg/dL (83-110); Potassium 3.9 mmol/L (3.5-5.1); Sodium 133 mmol/L (136-145)
[2023-04-05] MEDS: Enoxaparin 40 MG (0.4 mL) SYRINGE SC SCH (08:39)
[2023-04-05] MEDS: methylPREDNISolone Sod Succ 40 MG VIAL IVP SCH (08:40)
[2023-04-05] MEDS: Amlodipine 10 MG TAB PO SCH (08:40)
[2023-04-05] MEDS: Multivit, Therapeutic 1 TAB PO SCH (08:40)
[2023-04-05] MEDS: Folic Acid 1 MG TAB PO SCH (08:41)
[2023-04-05] MEDS: Carvedilol 3.125 MG TAB PO SCH ×2 (08:41→16:27)
[2023-04-05 13:46] LABS: Syphilis Antibody Index 7.67 S/CO (<1.00 Non-Reactive)
[2023-04-05 13:48] LABS: Syphilis Antibody INDETERMINATE (Nonreactive); Syphilis Titer Non-Reactive Titer (Negative)
[2023-04-05] MEDS: Sodium Chloride 0.9% 1,000 ML IV SCH (16:26)
[2023-04-05] MEDS: Azithromycin 500 MG in Sodium Chloride 0.9% 250 ML 250 ML IVPB SCH (18:15)
[2023-04-05] MEDS: cefTRIAXone\\ROCEPHIN 1 GM in Sodium Chloride 0.9% 100 ML IVPB SCH (19:29)
[2023-04-05] MEDS: Thiamine 100 MG TAB PO SCH (19:29)
[2023-04-05] MEDS ORDERED: Lorazepam 0.5 MG TAB PO PRN (21:14)
[2023-04-06 05:15] LABS: #Monocytes 0.7 thou/uL (0.11-0.59); %Basophils 0.1 % (0.0-1.0); %Eosinophils 0.1 % (0.0-10.0); %Lymphocytes 18.8 % (21.0-51.0); %Monocytes 5.3 % (0.0-10.0); %Neutrophils 75.5 % (42.0-75.0); Hematocrit 40.9 % (42.0-52.0); Mean Corpuscular HGB CONC 31.8 g/dL (32.0-36.0); Mean Corpuscular Hemoglobin 25.6 pg (27.0-31.0); Mean Corpuscular Volume 80.7 fl (78.0-98.0); Platelet Count 136 10x3/uL (130-400); RBC Distribution Width 14.5 % (11.5-14.5); Red Blood Cell (RBC) Count 5.07 mill/uL (4.70-6.10); White Blood Cell (WBC) Count 13.2 10x3/uL (4.8-10.8)
[2023-04-06 05:35] LABS: Anion Gap 12 mmol/L (10-20); BUN (Urea Nitrogen) 20 mg/dL (8.4-25.7); Calc. Creatinine Clearance 64 mL/min (70-130); Calcium 8.5 mg/dL (7.8-10.44); Carbon Dioxide 21 mmol/L (23-31); Chloride 106 mmol/L (98-107); Estimated GFR 70; Glucose 106 mg/dL (83-110); Sodium 135 mmol/L (136-145)
[2023-04-06] MEDS: Sodium Chloride 0.9% 1,000 ML IV SCH ×3 (05:55→22:52)
[2023-04-06] MEDS: Ipratropium/Albuterol 3 ML NEB NEB SCH ×4 (07:41→23:54)
[2023-04-06] MEDS ORDERED: Regadenoson 0.4 MG/5 ML SYRINGE ONE (09:38)
[2023-04-06] MEDS: Folic Acid 1 MG TAB PO SCH (11:34)
[2023-04-06] MEDS: Carvedilol 3.125 MG TAB PO SCH ×2 (11:34→17:06)
[2023-04-06] MEDS: Enoxaparin 40 MG (0.4 mL) SYRINGE SC SCH (11:34)
[2023-04-06] MEDS: Multivit, Therapeutic 1 TAB PO SCH (11:34)
[2023-04-06] MEDS: Amlodipine 10 MG TAB PO SCH (11:34)
[2023-04-06] MEDS: methylPREDNISolone Sod Succ 40 MG VIAL IVP SCH (11:34)
[2023-04-06] MEDS: Azithromycin 500 MG in Sodium Chloride 0.9% 250 ML 250 ML IVPB SCH (17:05)
[2023-04-06] MEDS: Thiamine 100 MG TAB PO SCH (22:51)
[2023-04-06] MEDS: cefTRIAXone\\ROCEPHIN 1 GM in Sodium Chloride 0.9% 100 ML IVPB SCH (23:00)
[2023-04-07 06:18] LABS: Anion Gap 10 mmol/L (10-20); BUN (Urea Nitrogen) 20 mg/dL (8.4-25.7); Calc. Creatinine Clearance 69 mL/min (70-130); Calcium 8.2 mg/dL (7.8-10.44); Carbon Dioxide 24 mmol/L (23-31); Chloride 104 mmol/L (98-107); Estimated GFR 76; Glucose 114 mg/dL (83-110); Potassium 3.8 mmol/L (3.5-5.1); Sodium 134 mmol/L (136-145)
[2023-04-07 06:27] LABS: #Monocytes 0.8 thou/uL (0.11-0.59); #Neutrophils 8.3 thou/uL (1.40-6.50); %Basophils 0.1 % (0.0-1.0); %Eosinophils 0.2 % (0.0-10.0); %Lymphocytes 16.1 % (21.0-51.0); %Monocytes 7.5 % (0.0-10.0); %Neutrophils 75.7 % (42.0-75.0); Hematocrit 39.1 % (42.0-52.0); Hemoglobin 12.6 g/dL (14.0-18.0); Mean Corpuscular HGB CONC 32.2 g/dL (32.0-36.0); Mean Corpuscular Hemoglobin 25.6 pg (27.0-31.0); Mean Corpuscular Volume 79.3 fl (78.0-98.0); Mean Platelet Volume 11.8 fL (7.4-10.4); Platelet Count 126 10x3/uL (130-400); RBC Distribution Width 14.2 % (11.5-14.5); Red Blood Cell (RBC) Count 4.93 mill/uL (4.70-6.10); White Blood Cell (WBC) Count 10.9 10x3/uL (4.8-10.8)
[2023-04-07] MEDS: Ipratropium/Albuterol 3 ML NEB NEB SCH ×2 (07:19→12:51)
[2023-04-07] MEDS: Enoxaparin 40 MG (0.4 mL) SYRINGE SC SCH (08:55)
[2023-04-07] MEDS: Multivit, Therapeutic 1 TAB PO SCH (08:56)
[2023-04-07] MEDS: Folic Acid 1 MG TAB PO SCH (08:56)
[2023-04-07] MEDS: Amlodipine 10 MG TAB PO SCH (08:56)
[2023-04-07] MEDS: Carvedilol 3.125 MG TAB PO SCH (08:56)
[2023-04-07] MEDS: methylPREDNISolone Sod Succ 40 MG VIAL IVP SCH (08:57)
[2023-04-07] MEDS: Sodium Chloride 0.9% 1,000 ML IV SCH (08:57)
[2023-04-07 08:58] VITALS: BP 176/94
[2023-04-07 09:08] VITALS: TEMP 98.7
== END 2023-04-07 12:57 | disposition home or self-care (01) | DRG 191 ==
LOC: ERS 15:33 → ERHOLD 20:16 → 2SW 04-03 12:52 → OBSVTOIN 04-04 11:10 → SURG B 04-06 17:56
PROVIDERS: ADMIT Student in an Organized Health Care Education/Training Program; ATTEND Internal Medicine
DX: J44.1 Chronic obstructive pulmonary disease with (acute) exacerbation (principal); E87.1 Hypo-osmolality and hyponatremia; I50.42 Chronic combined systolic (congestive) and diastolic (congestive) heart failure; N17.9 Acute kidney failure, unspecified; I11.0 Hypertensive heart disease with heart failure; F41.9 Anxiety disorder, unspecified; K25.9 Gastric ulcer, unspecified as acute or chronic, without hemorrhage or perforation; I45.10 Unspecified right bundle-branch block; J43.9 Emphysema, unspecified; F14.10 Cocaine abuse, uncomplicated; F15.10 Other stimulant abuse, uncomplicated; F19.10 Other psychoactive substance abuse, uncomplicated; D64.9 Anemia, unspecified; F17.210 Nicotine dependence, cigarettes, uncomplicated; E83.39 Other disorders of phosphorus metabolism; Z96.0 Presence of urogenital implants; Z79.82 Long term (current) use of aspirin; Z79.899 Other long term (current) drug therapy; Z95.818 Presence of other cardiac implants and grafts; Z71.6 Tobacco abuse counseling
CPT/HCPCS: 36415; 71045; 71275; 78452; 80048; 80053; 80306; 81001; 82248; 83690; 83735; 83880; 84100; 84484; 85025; 85379; 86593; 86780; 93005; 93017; 93306; 94640; 94644; 96365; 96375; A9502; J0456; J0696; J1650; J2060; J2405; J2785; J2920; J3411; J3475; J3490; J7050; J7512; J7611; J7620; Q9967

== ENCOUNTER 2024-03-30 05:09 | Observation (INO) | payer MEDICARE, OTHER ==
[2024-03-30 05:39] VITALS: BMI 25.9
[2024-03-30] MEDS ORDERED: Calcium Carbonate 500 MG ChewTAB PO PRN (08:51)
[2024-03-30] MEDS ORDERED: Acetaminophen 325 MG TAB PO PRN (08:51)
[2024-03-30] MEDS ORDERED: Ipratropium/Albuterol 3 ML NEB NEB PRN (08:51)
[2024-03-30] MEDS ORDERED: Albuterol 2.5 MG (3 mL) NEB NEB PRN (08:51)
[2024-03-30] MEDS ORDERED: Ondansetron ODT 4 MG TAB PO PRN (08:51)
[2024-03-30] MEDS ORDERED: Ketorolac Tromethamine 30 MG (1 mL) VIAL IVP PRN (08:51)
[2024-03-30] MEDS ORDERED: Ondansetron PF 4 MG/2 ML Vial IVP PRN (08:51)
[2024-03-30] MEDS ORDERED: Senokot S 8.6-50 MG TAB PO PRN (08:51)
[2024-03-30] MEDS ORDERED: Nitroglycerin 0.4 MG TAB (25 Tab Bottle) SL PRN (08:51)
[2024-03-30] MEDS ORDERED: Acetaminophen 650 MG Suppository PR PRN (08:51)
[2024-03-30] MEDS ORDERED: Benzonatate 100 MG CAP PO PRN (09:00)
[2024-03-30 09:41] LABS: Phosphorus 2.1 mg/dL (2.3-4.7)
[2024-03-30 09:43] LABS: Magnesium 1.7 mg/dL (1.6-2.6)
[2024-03-30 09:47] LABS: Troponin I 0.011 ng/mL (< 0.028)
[2024-03-30] MEDS: Enoxaparin 40 MG (0.4 mL) SYRINGE SC SCH (10:18)
[2024-03-30] MEDS: Azithromycin 250 MG TAB PO SCH (10:18)
[2024-03-30] MEDS: Aspirin Chewable 81 MG TAB PO SCH (10:18)
[2024-03-30] MEDS: methylPREDNISolone Sod Succ 40 MG VIAL IVP SCH (10:19)
[2024-03-30] MEDS: Clopidogrel Bisulfate 75 MG TAB PO SCH (10:19)
[2024-03-30] MEDS: cefTRIAXone\\ROCEPHIN 1 GM in Sodium Chloride 0.9% 100 ML IVPB SCH (10:19)
[2024-03-30] MEDS: Famotidine 20 MG TAB PO SCH (10:22)
[2024-03-30] MEDS ORDERED: Electrolyte Replacement Protocol 1 EACH FS SCH (10:30)
[2024-03-30] MEDS: Magnesium 2 GM/50 ML(in water) 2 GM in Premix 1 BAG IVPB SCH (12:39)
[2024-03-30] MEDS: Losartan 25 MG TAB PO SCH (17:14)
[2024-03-30] MEDS: Arformoterol 15 MCG/2 ML NEB NEB SCH (18:34)
[2024-03-30] MEDS: Terazosin HCl 5 MG CAP PO SCH (20:43)
[2024-03-30] MEDS: Atorvastatin Calcium 40 MG TAB PO SCH (20:43)
[2024-03-31 06:07] LABS: #Basophils Less than 0.03 10x3/uL (0.0-0.2); #Eosinophils Less than 0.03 10x3/uL (0.0-0.7); %Basophils 0.1 % (0.0-1.0); %Lymphocytes 9.6 % (21.0-51.0); %Monocytes 3.7 % (0.0-10.0); %Neutrophils 86.2 % (42.0-75.0); Hematocrit 38.5 % (42.0-52.0); Hemoglobin 13.1 g/dL (14.0-18.0); Mean Corpuscular Hemoglobin 25.7 pg (27.0-31.0); Mean Corpuscular Volume 75.6 fL (78.0-98.0); Mean Platelet Volume 10.4 fL (7.4-10.4); Platelet Count 203 10x3/uL (130-400); Red Blood Cell (RBC) Count 5.09 mill/uL (4.70-6.10)
[2024-03-31 06:19] LABS: Hemoglobin A1c 5.8 % (4.0-6.0)
[2024-03-31 06:24] LABS: Anion Gap 15 mmol/L (10-20); BUN (Urea Nitrogen) 23 mg/dL (8.4-25.7); Calc. Creatinine Clearance 69 mL/min (70-130); Calcium 9.1 mg/dL (7.8-10.44); Carbon Dioxide 18 mmol/L (23-31); Chloride 104 mmol/L (98-107); Estimated GFR 72; Glucose 144 mg/dL (83-110); Magnesium 2.1 mg/dL (1.6-2.6); Potassium 4.1 mmol/L (3.5-5.1); Sodium 133 mmol/L (136-145)
[2024-03-31] MEDS ORDERED: Non-Formulary Item 1 EACH (Omeprazole [Omeprazole] 20 MG Tablet.Dr) PO SCH (09:00)
[2024-03-31] MEDS ORDERED: Amlodipine 5 MG TAB PO SCH (09:00)
[2024-03-31] MEDS: Amlodipine 10 MG TAB PO SCH (09:25)
[2024-03-31] MEDS: Pantoprazole DR 40 MG TAB PO SCH (09:25)
[2024-03-31] MEDS: Losartan 25 MG TAB PO SCH (09:25)
[2024-03-31 12:43] VITALS: BP 159/89; TEMP 98.1
[2024-03-31] MEDS ORDERED: LevoFLOXacin 750 MG TAB PO SCH (15:00)
[2024-03-31] MEDS ORDERED: predniSONE 20 MG TAB PO SCH (15:00)
[2024-04-01] MEDS ORDERED: LevoFLOXacin 750 MG TAB PO SCH (06:00)
[2024-04-01] MEDS ORDERED: predniSONE 20 MG TAB PO SCH (08:00)
== END 2024-03-31 15:10 ==
LOC: 2NO 05:09
PROVIDERS: ADMIT Family Medicine; ATTEND Internal Medicine
DX: R07.81 Pleurodynia (principal); I11.0 Hypertensive heart disease with heart failure; I50.42 Chronic combined systolic (congestive) and diastolic (congestive) heart failure; I25.10 Atherosclerotic heart disease of native coronary artery without angina pectoris; J44.1 Chronic obstructive pulmonary disease with (acute) exacerbation; E78.5 Hyperlipidemia, unspecified; F17.200 Nicotine dependence, unspecified, uncomplicated; F19.10 Other psychoactive substance abuse, uncomplicated; Z95.5 Presence of coronary angioplasty implant and graft; Z79.82 Long term (current) use of aspirin; Z79.51 Long term (current) use of inhaled steroids; Z79.02 Long term (current) use of antithrombotics/antiplatelets; Z79.899 Other long term (current) drug therapy
CPT/HCPCS: 80048; 82962; 83036; 83735 ×2; 84100; 84443; 84484; 85025; 94640 ×2; 94760; 96372 ×2; 96374; 96375; 96376 ×2; G0378 ×2; J0696 ×2; J1650 ×2; J2919 ×2; J3475; 36415; 36416

== ENCOUNTER 2024-12-25 01:53 | Inpatient (IN) | payer OTHER, SELFPAY ==
[2024-12-25 02:25] VITALS: BMI 24.1
[2024-12-25] MEDS ORDERED: Nitroglycerin 0.4 MG TAB (25 Tab Bottle) SL PRN (02:59)
[2024-12-25] MEDS ORDERED: Acetaminophen 325 MG TAB PO PRN (03:01)
[2024-12-25] MEDS ORDERED: Ondansetron PF 4 MG/2 ML Vial IVP PRN (03:01)
[2024-12-25] MEDS ORDERED: Calcium Carbonate 500 MG ChewTAB PO PRN (03:01)
[2024-12-25] MEDS ORDERED: Electrolyte Replacement Protocol 1 EACH FS PRN (03:15)
[2024-12-25] MEDS ORDERED: Albuterol 200 PUFF (6.7GM INHALER) INH PRN (03:19)
[2024-12-25] MEDS: Ipratropium Bromide 2.5 ml Neb NEB PRN (03:28)
[2024-12-25 04:52] LABS: ALT (SGPT) 10 U/L (Less than 45); AST (SGOT) 17 U/L (11-34); Albumin 3.4 g/dL (3.1-4.5); Alkaline Phosphatase 78 U/L (40-110); Anion Gap 15 mmol/L (10-20); BUN (Urea Nitrogen) 18 mg/dL (8.4-25.7); Bilirubin, Total 0.4 mg/dL (0.3-1.2); Calc. Creatinine Clearance 53 mL/min (70-130); Calcium 8.9 mg/dL (7.8-10.44); Carbon Dioxide 23 mmol/L (23-31); Chloride 102 mmol/L (98-107); Globulin 3.2 g/dL (2.4-3.5); Glucose 102 mg/dL (83-110); Potassium 3.2 mmol/L (3.5-5.1); Sodium 137 mmol/L (136-145)
[2024-12-25] MEDS: Magnesium 2 GM/50 ML(in water) 2 GM in Premix 1 BAG IVPB SCH (04:59)
[2024-12-25] MEDS: Guaifenesin DM 100-10/5 ML UDCUP PO PRN (04:59)
[2024-12-25 05:11] LABS: #Basophils 0.05 10x3/uL (0.0-0.2); #Eosinophils 0.11 10x3/uL (0.0-0.7); #Monocytes 0.70 10x3/uL (0.11-0.59); #Neutrophils 3.66 10x3/uL (1.40-6.50); %Basophils 0.8 % (0.0-1.0); %Eosinophils 1.7 % (0.0-10.0); %Lymphocytes 31.2 % (21.0-51.0); %Monocytes 10.6 % (0.0-10.0); %Neutrophils 55.5 % (42.0-75.0); Hematocrit 39.4 % (42.0-52.0); Hemoglobin 12.7 g/dL (14.0-18.0); Mean Corpuscular Hemoglobin 26.2 pg (27.0-31.0); Mean Corpuscular Volume 81.2 fL (78.0-98.0); Platelet Count 138 10x3/uL (130-400); Red Blood Cell (RBC) Count 4.85 mill/uL (4.70-6.10); White Blood Cell (WBC) Count 6.58 10x3/uL (4.8-10.8)
[2024-12-25] MEDS ORDERED: Aspirin Chewable 81 MG TAB PO SCH (09:00)
[2024-12-25] MEDS: Carvedilol 6.25 MG TAB PO SCH (09:23)
[2024-12-25] MEDS: Aspirin 81 mg Enteric Coated Tablet PO SCH (09:26)
[2024-12-25] MEDS: Furosemide 40 MG TAB PO SCH (09:26)
[2024-12-25] MEDS: Valsartan 80 MG TAB PO SCH (09:26)
[2024-12-25] MEDS ORDERED: Ipratropium Bromide 2.5 ml Neb NEB PRN (15:16)
[2024-12-25 17:30] LABS: Potassium 3.9 mmol/L (3.5-5.1)
[2024-12-26 05:03] LABS: Anion Gap 14 mmol/L (10-20); BUN (Urea Nitrogen) 18 mg/dL (8.4-25.7); Calc. Creatinine Clearance 59 mL/min (70-130); Calcium 8.8 mg/dL (7.8-10.44); Carbon Dioxide 23 mmol/L (23-31); Chloride 102 mmol/L (98-107); Glucose 127 mg/dL (83-110); Potassium 3.2 mmol/L (3.5-5.1); Sodium 136 mmol/L (136-145)
[2024-12-26 07:48] VITALS: BP 159/80; TEMP 98.5
[2024-12-26] MEDS: Spironolactone 25 MG TAB PO SCH (10:22)
== END 2024-12-26 11:54 | disposition home or self-care (01) | DRG 313 ==
LOC: EEVIPCON 02:07 → OBS 02:07
PROVIDERS: ADMIT Student in an Organized Health Care Education/Training Program; ATTEND Internal Medicine
DX: R07.9 Chest pain, unspecified (principal); I13.0 Hypertensive heart and chronic kidney disease with heart failure and stage 1 through stage 4 chronic kidney disease, or unspecified chronic kidney disease; I50.42 Chronic combined systolic (congestive) and diastolic (congestive) heart failure; I5A Non-ischemic myocardial injury (non-traumatic); I42.9 Cardiomyopathy, unspecified; Z66 Do not resuscitate; I25.10 Atherosclerotic heart disease of native coronary artery without angina pectoris; D69.6 Thrombocytopenia, unspecified; J44.9 Chronic obstructive pulmonary disease, unspecified; F14.11 Cocaine abuse, in remission; K21.9 Gastro-esophageal reflux disease without esophagitis; E78.5 Hyperlipidemia, unspecified; F17.200 Nicotine dependence, unspecified, uncomplicated; E87.6 Hypokalemia; E83.42 Hypomagnesemia; N18.30 Chronic kidney disease, stage 3 unspecified; D63.1 Anemia in chronic kidney disease; Z95.820 Peripheral vascular angioplasty status with implants and grafts; Z79.51 Long term (current) use of inhaled steroids; Z79.82 Long term (current) use of aspirin; Z79.899 Other long term (current) drug therapy; Z71.51 Drug abuse counseling and surveillance of drug abuser; Z71.6 Tobacco abuse counseling; Z95.5 Presence of coronary angioplasty implant and graft; I08.3 Combined rheumatic disorders of mitral, aortic and tricuspid valves
CPT/HCPCS: 36415; 36416; 80048; 80053; 83880; 85025; 94640; 94760; J2919; J3475; J3480; J7644